=== PATIENT | female | born 1940 | race Caucasian/White ===

== ENCOUNTER 2017-10-02 12:37 | Inpatient (IN) | payer MEDICARE, OTHER ==
[~2017-10-02] VITALS: Ht 160 cm; Wt 105.8 kg
[~2017-10-02 12:37] MED LIST: AMIT10TA6 PO; AMLO-147 PO; ASPI-664 PO; CALC500T12 PO; COLE625T2 PO; DOCU100T PO; FOLI-49 PO; FURO20TA3 PO; GLIP-95 PO; INSU100C5 SQ; KETO5DRO21 BOTH EYES; METO2.5T12 PO; NOV SC; NYST15CR28 TOP; PANT40TA4 PO; RANO500T2 PO; SIMV20TA2 PO; [UNRECOGNIZED DRUG - CODE] PO
[2017-10-02] MEDS ORDERED: morphine 4 MG/ML VIAL IV STA ×2 (12:40→17:38)
[2017-10-02] MEDS ORDERED: ONDANSETRON 4 MG INJ IV STA ×2 (12:40→17:38)
[2017-10-02] MEDS ORDERED: SOD CHLORIDE 0.9% 500 ML IV STA (12:41)
[2017-10-02 13:03] LABS: BASOPHIL # 0.1 10^3/ul (0.0-0.1); BASOPHILS % 0.8 % (0.0-2.0); EOSINOPHILS # 0.2 10^3/ul (0.0-0.5); EOSINOPHILS % 2.2 % (0.0-7.0); HEMATOCRIT 37.9 % (37.0-47.0); HEMOGLOBIN 12.5 g/dl (12.0-16.0); LYMPHOCYTES # 3.8 10^3/ul (0.8-2.9); LYMPHOCYTES % 41.6 % (15.0-51.0); MEAN CORPUSCULAR HEMOGLOBIN 31.2 pg (29.0-33.0); MEAN CORPUSCULAR VOLUME 94.5 fl (82.0-101.0); MEAN PLATELET VOLUME 9.6 fl (7.4-10.4); MONOCYTES % 11.3 % (0.0-11.0); NEUTROPHILS % 43.6 % (39.0-77.0); PLATELET COUNT 238 10^3/UL (140-415); RED BLOOD COUNT 4.01 10^6/ul (4.20-5.40); WHITE BLOOD COUNT 9.1 10^3/ul (4.8-10.8)
[2017-10-02 13:23] LABS: ALANINE AMINOTRANSFERASE 36 IU/L (13-69); ALBUMIN 4.1 g/dl (3.3-4.9); ALKALINE PHOSPHATASE 91 IU/L (42-121); ANION GAP 14 (8-16); ASPARTATE AMINO TRANSFERASE 33 IU/L (15-46); BILIRUBIN,INDIRECT 0.2 mg/dl (0-1.1); BILIRUBIN,TOTAL 0.2 mg/dl (0.2-1.3); BLOOD UREA NITROGEN 19 mg/dl (7-20); CALCIUM 9.8 mg/dl (8.4-10.2); CARBON DIOXIDE 28 mmol/L (21-31); CHLORIDE 106 mmol/L (97-110); CREATININE 1.37 mg/dl (0.44-1.00); GLUCOSE 170 mg/dl (70-220); POTASSIUM 5.1 mmol/L (3.5-5.1); SODIUM 143 mmol/L (135-144); TOTAL PROTEIN 7.8 g/dl (6.1-8.1)
[2017-10-02 13:36] LABS: TROPONIN-I < 0.012 ng/ml (0.00-0.12)
--- NOTE | 2017-10-02 13:50 | ERD ---
ER Documentation Chief Complaint Chief Complaint mechanical fall landed on rt shoulder/ c/o rt shoulder pain no LOC HPI Is a 77-year-old female presents after mechanical fall she got caught in fell and landed on her right shoulder. She has pain in the posterior right shoulder does not want to move the arm. Also has pain in her back if she did land on her backside. She denies any head injury loss of consciousness. Denies any chest pain or lightheadedness prior to the fall. Has felt well all morning until the fall. Is no neurological deficits. ROS All systems reviewed and are negative except as per history of present illness. Medications Home Meds Active Scripts Naproxen* (Naproxen*) 375 Mg Tablet, 375 MG PO BID Y for PAIN, #20 TAB Prov:AFIA PATEL DO 10/02/17 Hydrocodone/Acetaminophen ([place] 7.5-325 Tablet) 1 Each Tablet, 1 EACH PO Q6 for SEVERE PAIN LEVEL 7-10, #20 TAB Prov:AFIA PATEL DO 10/02/17 Reported Medications Calcium Carbonate* ([place]-500*) 1 Tab Tablet, 1 TAB PO BID, TAB 06/21/16 Ketorolac Tromethamine Oph (Ketorolac Tromethamine Oph) 0.5%-5 Ml Opht Drops, 1 DROP BOTH EYES QID, EA 06/21/16 Nystatin* (Nystatin*) 15 Gm Cr, 1 APPLIC TOP BID, #1 TUB 06/21/16 Docusate Sodium* (Dok*) 100 Mg Tablet, 100 MG PO QID, #120 CAP 06/21/16 Glipizide* (Glipizide*) 10 Mg Tablet, 10 MG PO BID, TAB 06/21/16 Furosemide* (Furosemide*) 20 Mg Tablet, 20 MG PO DAILY, #60 TAB 06/21/16 Insulin Aspart* (Novolog Insulin Vial*) 100 U/Ml Vial, 33 UNITS SC TID WITH MEAL , VIAL 06/21/16 Pantoprazole* (Pantoprazole*) 40 Mg Tablet.dr, 40 MG PO DAILY, TAB 06/21/16 Simvastatin (Simvastatin) 20 Mg Tablet, 20 MG PO HS, TAB 01/06/15 Ranolazine* (Ranexa*) 500 Mg Tab.sr.12h, 500 MG PO Q12, TAB 01/06/15 Insulin Glargine,Hum.rec.anlog (Lantus) 100 U/Ml Cartridge, 21 UNITS SQ QHS 05/20/13 Amlodipine Besylate* (Amlodipine Besylate*) 10 Mg Tablet, 10 MG PO DAILY 05/20/13 Metolazone* (Metolazone*) 2.5 Mg Tablet, 2.5 MG PO DAILY 07/17/12 Folic Acid* (Folic Acid*) 1 Mg Tablet, 1 MG PO DAILY 07/17/12 Aspirin* (Aspirin* EC) 81 Mg Tablet.dr, 81 MG PO DAILY 07/17/12 Gabapentin (Gabapentin) 100 Gm Powder, 100 MG PO TID 07/17/12 Amitriptyline Hcl* (Amitriptyline Hcl*) 10 Mg Tablet, 10 MG PO DAILY 07/17/12 Colesevelam Hcl* (Welchol*) 625 Mg Tablet, 625 MG PO TID 07/17/12 Allergies Allergies: Coded Allergies: No Known Drug Allergy (Verified Allergy, Mild, 10/02/17) PMhx/Soc History of Surgery: Yes (2014 TKR, FX RT WRIST 2012) Anesthesia Reaction: No Hx Neurological Disorder: No Hx Respiratory Disorders: No Hx Cardiac Disorders: Yes (HTN, HYPERLIPIDEMIA, CAD) Hx Psychiatric Problems: No Hx Miscellaneous Medical Probl: Yes (DM) Hx Alcohol Use: No Hx Substance Use: No Hx Tobacco Use: No Smoking Status: Never smoker Physical Exam Vitals Physical Exam Const: [] Moderate distress Head: Atraumatic Eyes: Normal Conjunctiva, EOMI, PERRLA ENT: Normal External Ears, Nose and Mouth. Neck: Full range of motion..~ No meningismus. Resp: Clear to auscultation bilaterally Cardio: Regular rate and rhythm, no murmurs Abd: Soft, non tender, non distended. Normal bowel sounds Skin: No petechiae or rashes Back: No midline or flank tenderness Ext: No cyanosis, or edema tenderness to right upper humerus, tenderness along scapula. Has some left lower back tenderness as well. Neur: Awake and alert and oriented 3, no focal deficits Psych: Anxious Result Diagram: 10/08/17 0753 10/08/17 0753 Results 24 hrs Laboratory Tests Test 10/02/17 12:45 White Blood Count 9.110^3/ul Red Blood Count 4.0110^6/ul Hemoglobin 12.5g/dl Hematocrit 37.9% Mean Corpuscular Volume 94.5fl Mean Corpuscular Hemoglobin 31.2pg Mean Corpuscular Hemoglobin Concent 33.0g/dl Red Cell Distribution Width 12.0% Platelet Count 06006^3/UL Mean Platelet Volume 9.6fl Neutrophils % 43.6% Lymphocytes % 41.6% Monocytes % 11.3% Eosinophils % 2.2% Basophils % 0.8% Nucleated Red Blood Cells % 0.0/100WBC Neutrophils # 4.010^3/ul Lymphocytes # 3.810^3/ul Monocytes # 1.010^3/ul Eosinophils # 0.210^3/ul Basophils # 0.110^3/ul Nucleated Red Blood Cells # 0.010^3/ul Sodium Level 143mmol/L Potassium Level 5.1mmol/L Chloride Level 106mmol/L Carbon Dioxide Level 28mmol/L Anion Gap 14 Blood Urea Nitrogen 19mg/dl Creatinine 1.37mg/dl Glucose Level 170mg/dl Calcium Level 9.8mg/dl Total Bilirubin 0.2mg/dl Direct Bilirubin 0.00mg/dl Indirect Bilirubin 0.2mg/dl Aspartate Amino Transf (AST/SGOT) 33IU/L Alanine Aminotransferase (ALT/SGPT) 36IU/L Alkaline Phosphatase 91IU/L Troponin I < 0.012ng/ml Total Protein 7.8g/dl Albumin 4.1g/dl Globulin 3.70g/dl Albumin/Globulin Ratio 1.10 Lipase 76U/L Current Medications Medications (Trade) Dose Ordered Sig/Segun Route PRN Reason Start Time Stop Time Status Last Admin Dose Admin Morphine Sulfate (morphine) 4 mg ONCE STAT IV 10/02/17 12:40 10/02/17 12:41 DC 10/02/17 12:51 Ondansetron HCl 4 mg 4 mg ONCE STAT IV 10/02/17 12:40 10/02/17 12:41 DC 10/02/17 12:51 Sodium Chloride (NS) 500 ml @ 500 mls/hr Q1H STAT IV 10/02/17 12:41 10/02/17 13:40 DC 10/02/17 12:51 Hydromorphone HCl 1 mg 1 mg ONCE STAT IV 10/02/17 14:42 10/02/17 14:43 DC 10/02/17 14:48 Sodium Chloride (NS) 500 ml @ 500 mls/hr Q1H ONCE IV 10/02/17 15:00 10/02/17 15:59 DC 10/02/17 14:48 Morphine Sulfate (morphine) 4 mg ONCE STAT IV 10/02/17 17:38 10/02/17 17:39 DC 10/02/17 17:52 Ondansetron HCl (Zofran Inj) 4 mg ONCE STAT IV 10/02/17 17:38 10/02/17 17:39 DC 10/02/17 17:52 Hydromorphone HCl (Dilaudid) 2 mg ONCE STAT IV 10/02/17 20:41 10/02/17 20:42 DC 10/02/17 20:49 Procedures/MDM Mechanical fall with severe intractible pain from broken ribs. Requiring multiple narcotic IV pain medication doses to control pain. Negative for cardiac ischemia or acute infection. Will need to be admitted for pain control and incentive spirometry. EKG interpretation: Normal sinus rhythm rate of 68, normal axis, incomplete right bundle branch block, no ST or T-wave changes concerning for acute ischemia. CT chest: fractures of ribs 5 through 7, no pulmonary edema, pneumothorax, or infiltrate. CXR: No actue process. No apparent fracture, infiltrate, ptx, or edema. XR shoulder interp: no fracture or dislocation. NAP XR cervical, thoracid and lumbar spine: No fracture, dislocation or subluxation. Departure Diagnosis: Primary Impression: Intractable pain Additional Impressions: Multiple rib fractures Renal insufficiency Condition: Serious AFIA PATEL DO Oct 02, 2017 13:50
[2017-10-02] MEDS ORDERED: HYDROmorphONE 1 MG/ML SYG IV STA (14:42)
--- NOTE | 2017-10-02 14:43 | RADRPT ---
PROCEDURE: XR Cervical Spine. CLINICAL INDICATION: Neck pain. Fall TECHNIQUE: AP, lateral, and open mouth views of the cervical spine were obtained. COMPARISON: None FINDINGS: The C1-C5 vertebral bodies is seen. The cervical lordosis is maintained. The vertebral body heights are normal. Multilevel endplate and uncovertebral osteophytosis is seen. Mild disc height loss at C 4-5 is seen. No acute fracture or subluxation is seen. Degenerative changes of the atlantoaxial padmini nt is seen. No prevertebral soft tissue abnormality is seen. IMPRESSION: 1. No radiographic evidence for an acute fracture or subluxation. If clinical concern for a cervic al spine fracture persist, a CT of the cervical spine is recommended. 2. Degenerative spondylosis of the visualized cervical spine. RPTAT: HPNM Physician Dyan Date Time Electronically viewed and signed by Physician Dyan on 10/02/2017 14:43 /
--- NOTE | 2017-10-02 14:45 | RADRPT ---
PROCEDURE: XR L-Spine. CLINICAL INDICATION: Low back pain. Fall TECHNIQUE: AP, lateral, and cone down views of the lumbar spine were obtained. COMPARISON: None FINDINGS: 5 mm of anterolisthesis at L5-S1 is seen. The remainder of the lumbar lordosis is maintained. Diffus e osteopenia is seen. The vertebral body heights are normal. Multilevel endplate osteophytosis is se en. Moderate disc height loss at L5-S1 is seen. No acute fracture or subluxation is seen. No parave rtebral soft tissue abnormality is seen. Aortic calcifications are seen. IMPRESSION: 1. Degenerative spondylosis of the lumbar spine as noted above. 2. 5 mm of anterolisthesis at L5-S1. RPTAT: HPNM Physician Dyan Date Time Electronically viewed and signed by Physician Dyan on 10/02/2017 14:44 /
--- NOTE | 2017-10-02 14:46 | RADRPT ---
PROCEDURE: XR Shoulder. CLINICAL INDICATION: Right shoulder pain. Fall TECHNIQUE: Internal and external rotation views of the right shoulder were obtained. COMPARISON: None FINDINGS: No acute fracture or dislocation is seen. A healed fracture of the mid clavicle is seen. The glenohu meral and acromioclavicular joints arewithin normal limits. Diffuse osteopenia is seen. The soft t issue structures are intact. The visualized portions of the right clavicle and chest otherwise appe ar unremarkable. IMPRESSION: No evidence of an acute abnormality. RPTAT: HPNM Physician Dyan Date Time Electronically viewed and signed by Physician Dyan on 10/02/2017 14:46 /
--- NOTE | 2017-10-02 14:48 | RADRPT ---
PROCEDURE: XR Chest. CLINICAL INDICATION: Shortness of breath. Fall TECHNIQUE: A single portable view of the chest was obtained. COMPARISON: 01/09/2015 FINDINGS: The aorta is tortuous and atherosclerotic. The cardiomediastinal silhouette is otherwise enlarged. The lung volumes are low with bibasilar compressive atelectasis. The remaining lungs and pleural spa darlyn are clear. The soft tissues and osseous structures demonstrate benign age related senescent antionette nges. A healed right mid clavicle fractures again seen. IMPRESSION: No acute cardiopulmonary disease. Cardiomegaly. Low lung volumes with bibasilar compressive atelectasis. RPTAT: HPNM Physician Dyan Date Time Electronically viewed and signed by Physician Dyan on 10/02/2017 14:48 /
--- NOTE | 2017-10-02 14:49 | RADRPT ---
PROCEDURE: XR thoracic Spine. CLINICAL INDICATION: Back pain. Fall TECHNIQUE: AP and lateral views of the thoracic spine were obtained. COMPARISON: No prior studies are available for comparison. FINDINGS: The thoracic kyphosis is maintained. No fracture or subluxation is seen. Diffuse osteopenia is seen. The vertebral body are normal in appearance. Multilevel endplate osteophytosis is seen with disc h eight loss. The posterior elements are unremarkable. The soft tissues appear normal. IMPRESSION: Multilevel degenerative spondylosis of the thoracic spine. RPTAT: HPNM Physician Dyan Date Time Electronically viewed and signed by Physician Dyan on 10/02/2017 14:49 /
[2017-10-02] MEDS ORDERED: SOD CHLORIDE 0.9% 500 ML IV ONE (15:00)
[2017-10-02] MEDS ORDERED: HYDROmorphONE 2 MG/ML SYG IV STA (20:41)
[2017-10-02] MEDS ORDERED: NAPR-685 PO (20:45)
[2017-10-02] MEDS ORDERED: HYDR-905 PO (20:45)
--- NOTE | 2017-10-02 22:01 | RADRPT ---
PROCEDURE: CT of the upper extremity without intravenous contrast. CLINICAL INDICATION: Trauma TECHNIQUE: CT of the right shoulder upper extremity was performed without contrast utilizing axial images with reconstructions in sagittal and coronal planes. The administered radiation dose is CTDI 59 mGy, DLP 125 mGy-cm. One or more of the following dose reduction techniques were used: automated exposure control, adjustment of the mA and/or kV according to patient size and/or use of iterative reconstruction technique. COMPARISON: There are no similar studies submitted for comparison. FINDINGS: There is no acute fracture of the shoulder or scapula. A chronic, healed fracture of the right poste rolateral 3rd rib and right clavicle are noted. There are acute, nondisplaced fractures of the right posterolateral 5th through 7th ribs. No destructive osseous lesion is identified. The muscles are normal in size. There is no joint effusion. The subcutaneous soft tissues are within normal limit s. IMPRESSION: No evidence of shoulder fracture or dislocation. Acute fractures of the right fifth through seventh ribs. RPTAT: HIKT .Aj Turcios MD, Date Time Electronically viewed and signed by .Aj Turcios MD, on 10/02/2017 22:01 .T/
--- NOTE | 2017-10-02 22:37 | QN ---
Documentation Comment 77-year-old woman signed out to me pending CT scan of the upper extremity status post mechanical fall. While in the ED she had severe pain and required multiple doses of intravenous opioid analgesics. X-rays were unremarkable but for continued pain Dr. Fraire ordered a CT scan and signed out to me for disposition pending results. GENERAL: Well-developed, well-nourished, well-hydrated, moderate discomfort HEENT: Moist mucous membranes, pink conjunctiva, no cervical spine tenderness or step-off deformities, no goiter, no jaundice or icterus, extraocular movements intact without pain. No submandibular induration, and no pharyngeal erythema NEURO: Alert and oriented 3, cranial nerves II through XII intact bilaterally, pupils equal round reactive to light, no focal deficits or facial asymmetry, sensation intact distally Strength 5/5 in upper and lower extremities bilaterally CARDIAC: Regular rate and rhythm, no murmurs rubs or gallops LUNGS: Clear bilaterally no wheezing crackles or stridor ABDOMEN: Soft nontender, no guarding, no rigidity, no rebound, no psoas sign no obturator sign. Normoactive bowel sounds SKIN: Warm and dry to touch, no abrasions, contusions, or hematomas, no lacerations, no ecchymosis, no target lesions, and without ulcers EXTREMITIES: No clubbing cyanosis or edema, calves are bilaterally symmetrical, no Homans sign, no popliteal cord sign. Distal pulses equal and bilateral PSYCH: Normal affect without agitation or irritability Medical decision making/ED course: CT scan of the upper extremity revealed unilateral rib fractures on the right beginning fifth rib through the seventh. Please refer to radiologist dictation for full report. I spoke to her PMD Dr. Serrano regarding the patient's presentation, symptomatology, ED workup and ED imaging. Given her rib fractures and intractable pain we agreed to admit the patient to telemetry setting for continued medical management and possible pulmonology consultation if indicated. Patient is without complaints of pain at this time although did require high doses of opioid analgesics and it would be safer to admit her to telemetry for continued pain control. Diagnostic impression: 1) Acute right rib fractures of 5, 6, 7 2) acute intractable pain FRANCISCO BRAND MD Oct 02, 2017 22:37
[2017-10-02 22:58] VITALS: TEMP 98.3
[2017-10-02 23:30] VITALS: BP 136/63; PULSE 78; RESP 20; Ht 160 cm; Wt 105.8 kg
[2017-10-03] VITALS (13 sets, daily range): BP systolic 111–155; BP diastolic 54–93; PULSE 57–77; RESP 17–21
[2017-10-03] MEDS ORDERED: ACETAMINOPHEN 325 MG TAB PO PRN (01:30)
[2017-10-03] MEDS ORDERED: NAPROXEN 250 MG TAB PO PRN (01:30)
[2017-10-03] MEDS: ACCU-CHEK XX SCH (02:00)
[2017-10-03] MEDS ORDERED: ACCU-CHEK XX SCH (02:00)
[2017-10-03] MEDS: ONDANSETRON 4 MG INJ IV PRN (02:32)
[2017-10-03] MEDS: morphine 2 MG INJ IV PRN ×3 (02:32→22:18)
[2017-10-03] MEDS: PANTOPRAZOLE (EC) 40 MG TAB PO SCH (05:46)
[2017-10-03] MEDS ORDERED: HYDROCODONE/APAP (7.5/325) TAB PO SCH (06:00)
[2017-10-03] MEDS ORDERED: glipiZIDE 10 MG TAB PO SCH (07:30)
[2017-10-03] MEDS: NYSTATIN 15 GM CR TOP SCH ×2 (08:32→21:00)
[2017-10-03] MEDS: ASPIRIN (EC) 81 MG TAB PO SCH (08:33)
[2017-10-03] MEDS: AMLODIPINE 10 MG TAB PO SCH (08:33)
[2017-10-03] MEDS: FUROSEMIDE 20 MG TAB PO SCH (08:33)
[2017-10-03] MEDS: AMITRIPTYLINE 10 MG TAB PO SCH (08:33)
[2017-10-03] MEDS: COLESEVELAM 625 MG TAB PO SCH ×3 (08:33→21:31)
[2017-10-03] MEDS: GABAPENTIN 100 MG CAP PO SCH ×3 (08:33→21:32)
[2017-10-03] MEDS: CALCIUM CARBONATE 1.25 GM TAB PO SCH ×2 (08:33→21:32)
[2017-10-03] MEDS: RANOLAZINE (SR) 500 MG TAB PO SCH ×2 (08:34→21:31)
[2017-10-03] MEDS: INSULIN ASPART [NOVOLOG] 3 ML PEN SC SCH ×4 (08:39→21:00)
[2017-10-03] MEDS: FOLIC ACID 1 MG TAB PO SCH (08:41)
[2017-10-03 08:45] LABS: BASOPHIL # 0.1 10^3/ul (0.0-0.1); BASOPHILS % 0.6 % (0.0-2.0); EOSINOPHILS # 0.1 10^3/ul (0.0-0.5); EOSINOPHILS % 1.2 % (0.0-7.0); HEMATOCRIT 35.6 % (37.0-47.0); HEMOGLOBIN 11.5 g/dl (12.0-16.0); LYMPHOCYTES # 2.8 10^3/ul (0.8-2.9); LYMPHOCYTES % 31.4 % (15.0-51.0); MEAN CORPUSCULAR HGB CONC 32.3 g/dl (32.0-37.0); MEAN PLATELET VOLUME 9.9 fl (7.4-10.4); MONOCYTE # 1.3 10^3/ul (0.3-0.9); MONOCYTES % 14.9 % (0.0-11.0); NEUTROPHIL # 4.6 10^3/ul (1.6-7.5); NEUTROPHILS % 51.6 % (39.0-77.0); PLATELET COUNT 218 10^3/UL (140-415); RED BLOOD COUNT 3.71 10^6/ul (4.20-5.40); RED CELL DISTRIBUTION WIDTH 12.1 % (11.5-14.5)
[2017-10-03] MEDS: DOCUSATE SODIUM 100 MG CAP PO SCH ×4 (08:47→21:31)
[2017-10-03] MEDS ORDERED: KETOROLAC TROMETHAMINE OPH XX SCH (09:00)
[2017-10-03 09:09] LABS: ALBUMIN 3.7 g/dl (3.3-4.9); ALBUMIN/GLOBULIN RATIO 1.02; BILIRUBIN,INDIRECT 0.3 mg/dl (0-1.1); BILIRUBIN,TOTAL 0.3 mg/dl (0.2-1.3); CALCIUM 9.5 mg/dl (8.4-10.2); CREATININE 1.4 mg/dl (0.44-1.00); POTASSIUM 5.2 mmol/L (3.5-5.1); TOTAL PROTEIN 7.3 g/dl (6.1-8.1)
[2017-10-03] MEDS: METOLAZONE 2.5 MG TAB PO SCH (12:23)
--- NOTE | 2017-10-03 13:47 | HP ---
Date/Time of Note Date/Time of Note DATE: 10/03/17 TIME: 13:35 Assessment/Plan VTE Prophylaxis VTE Prophylaxis Intervention: SCD's Lines/Catheters IV Catheter Type (from Nrs): Saline Lock Urinary Cath still in place: No Assessment/Plan Chief Complaint/Hosp Course 1. S/p fall with acute right rib fractures of 5, 6, 7 2. Hypertension controlled 3. Morbid obesity 4. Multilevel degenerative spondylosis of the thoracic spine. 5. Dm type II , controlled 6. Anemia Problems: Assessment/Plan 1. fall precautions 2. Pain control HPI/ROS Admit Date/Time Admit Date/Time Oct 02, 2017 at 22:30 Hx of Present Illness This a 77-year-old female presents after mechanical fall she got caught in fell and landed on her right side, hit her right shoulder. She has pain in the posterior right shoulder does not want to move the arm. Also has pain in her back if she did land on her backside. She denies any head injury loss of consciousness. Denies any chest pain or lightheadedness prior to the fall. Per ER record she felt well all morning until the fall. There is no neurological deficits. ROS Musculoskeletal: restricted range of motion (right chest) Skin: bruising (right side) PMH/Family/Social Past Medical History Medical History: diabetes, hypertension Past Surgical History Past Surgical Hx: no surgical history Social History Alcohol Use: none Smoking Status: Never smoker Drug Use: none Exam/Review of Systems Vital Signs Vitals Vital Signs Date Time Temp Pulse Resp B/P Pulse Ox O2 Delivery O2 Flow Rate FiO2 10/03/17 13:12 57 10/03/17 11:55 98.4 20 118/56 96 10/02/17 23:30 Nasal Cannula 2.0 Intake and Output 10/02/17 10/02/17 10/03/17 15:00 23:00 07:00 Intake Total 400 ml Balance 400 ml Exam Constitutional: alert, oriented Eyes: nl conjunctiva ENMT: nl external ears & nose Neck: supple Respiratory: clear to auscultation Cardiovascular: regular rate and rhythm Gastrointestinal: soft Musculoskeletal: range of motion (decreased right shoulder) Labs Result Diagram: 10/03/1782510/03/17825 Medications Medications Current Medications Acetaminophen (Tylenol Tab) 650 mg Q6H PRN PO PAIN AND OR ELEVATED TEMP; Start 10/03/17 at 01:30 Morphine Sulfate (morphine) 2 mg Q4H PRN IV PAIN Last administered on 02:32; Admin Dose 2 MG; Start 10/03/17 at 01:30 Ondansetron HCl (Zofran Inj) 4 mg Q6H PRN IV NAUSEA AND/OR VOMITING Last administered on 10/03/17 02:32; Admin Dose 4 MG; Start 10/03/17 at 01:30 Amitriptyline HCl (Elavil) 10 mg DAILY PO Last administered on 10/03/17 08:33 ; Admin Dose 10 MG; Start 10/03/17 at 09:00 Amlodipine Besylate (Norvasc) 10 mg DAILY PO Last administered on 10/03/17 08: 33; Admin Dose 10 MG; Start 10/03/17 at 09:00 Aspirin (Halfprin) 81 mg DAILY PO Last administered on 10/03/17 08:33; Admin Dose 81 MG; Start 10/03/17 at 09:00 Calcium Carbonate ([place] Calcium) 1.25 gm BID PO Last administered on 08:33; Admin Dose 1.25 GM; Start 10/03/17 at 09:00 Colesevelam HCl (Welchol) 625 mg TID PO Last administered on 10/03/17 12:25; Admin Dose 625 MG; Start 10/03/17 at 09:00 Docusate Sodium (Colace) 100 mg QID PO Last administered on 10/03/17 12:24; Admin Dose 100 MG; Start 10/03/17 at 09:00 Folic Acid (Folic Acid) 1 mg DAILY PO Last administered on 10/03/17 08:41; Admin Dose 1 MG; Start 10/03/17 at 09:00 Furosemide (Lasix) 20 mg DAILY PO Last administered on 10/03/17 08:33; Admin Dose 20 MG; Start 10/03/17 at 09:00 Metolazone (Zaroxolyn) 2.5 mg DAILY PO Last administered on 10/03/17 12:23; Admin Dose 2.5 MG; Start 10/03/17 at 09:00 Nystatin (Nystatin Cr) 1 applic BID TOP Last administered on 10/03/17 08:32; Admin Dose 1 APPLIC; Start 10/03/17 at 09:00 Pantoprazole (Protonix Tab) 40 mg DAILY@06 PO Last administered on 10/03/17 05 :46; Admin Dose 40 MG; Start 10/03/17 at 06:00 Ranolazine (Ranexa) 500 mg Q12 PO Last administered on 10/03/17 08:34; Admin Dose 500 MG; Start 10/03/17 at 09:00 Gabapentin (Neurontin) 100 mg TID PO Last administered on 10/03/17 12:24; Admin Dose 100 MG; Start 10/03/17 at 09:00 Miscellaneous Information 1 drop QID BOTH EYES ; Start 10/03/17 at 09:00; Status UNV Naproxen (Naprosyn) 375 mg BID PRN PO PAIN; Start 10/03/17 at 01:30 Atorvastatin Calcium (Lipitor) 10 mg DAILY@21 PO ; Start 10/03/17 at 21:00 Diagnostic Test (Pha) (Accu-Chek) 1 ea 02 XX ; Start 10/03/17 at 02:00 Acetaminophen/ Hydrocodone Bitart ([place] (7.5-325)) 1 tab Q6H PRN PO PAIN; Start 10/03/17 at 03:00 PATRICIA CALVERT Oct 03, 2017 13:45
--- NOTE | 2017-10-03 15:59 | CONS ---
DATE OF ADMISSION: 10/02/2017 DATE OF CONSULTATION: 10/03/2017 REASON FOR CONSULTATION: Chest pain, shortness of breath. REQUESTING PHYSICIAN: Raghav Salazar. HISTORY OF PRESENT ILLNESS: Ms. Jacobo is a 77-year-old female with history of hypertension, dysli pidemia, prior [place], neuropathy, diabetes mellitus who initially presented with complaints of a mechan ical fall with pain in her shoulder. At that time, patient denies chest pain. Initially upon arriv al, temperature 98.3, blood pressure 184/74, pulse 69, respiratory rate 22, saturating 99%. LABORATORY DATA: Revealed white count 11.1, hemoglobin 12.5, platelet count 238. Sodium 143, potas sium 5.1, creatinine 1.37, BUN 19, AST 33, ALT 36. The patient underwent upper extremity CT reveali ng no evidence of shoulder fracture, dislocation, acute fractures of the right 5th through 7th ribs. Thoracic spine x-ray revealing multilevel degenerative spondylosis of the thoracic spine, a should er x-ray that revealed no evidence of acute abnormality. A lumbar spine x-ray revealing degenerativ e spondylosis of the lumbar spine. And a chest x-ray that revealed no acute cardiopulmonary disease , cardiomegaly. The patient's electrocardiogram revealed normal sinus rhythm, rate of 68, normal ax is, block secondary repolarization abnormalities. The patient was subsequently admitted to the floor and since admit to the floor continues to have mi ld shortness of breath and chest pain, which pain on palpitation of her chest likely consistent with a rib fracture pain. PAST MEDICAL HISTORY: As above in HPI. MEDICATIONS CURRENTLY IN HOSPITAL: 1. Lipitor 2. Norvasc 10 mg daily. 3. Aspirin 81 mg daily. 4. Lasix 20 mg daily. 5. Zaroxolyn 2.5 mg. 6. Ranexa 5 mg q.12h. 7. Neurontin 100 mg t.i.d. ALLERGIES: NO KNOWN DRUG ALLERGIES. SOCIAL HISTORY: No tobacco, ETOH or illicit drug use. FAMILY HISTORY: No history of sudden cardiac or early CAD. REVIEW OF SYSTEMS: As above in HPI. CONSTITUTIONAL: No fevers, chills. PULMONARY: Shortness of breath. CARDIOVASCULAR: Chest pain. GI: No vomiting. : No hematuria. MUSCULOSKELETAL: Degenerative joint disease. PSYCHIATRIC: No documented psych history. NEUROLOGIC: No documented CVA. ENDOCRINE: Diabetes mellitus. PHYSICAL EXAMINATION: VITAL SIGNS: Temperature 98.3, blood pressure 118/56, pulse 66, respiratory rate 20, saturating 96% . GENERAL: The patient is alert, awake, complaining of chest pain and rib pain. NECK: JVP approximately 9 cm water. CHEST: Fair air movement throughout. HEART: Regular rate and rhythm. Normal S1, S2, I/ systolic murmur, nondisplaced PMI. ABDOMEN: Positive bowel sounds, soft. EXTREMITIES: No pitting edema, 1+ pulses bilaterally, posterior tibial. LABORATORIES: As above in HPI, with most recent from today, sodium 140, potassium 5.2, creatinine 1 .4, BUN 22. White blood cell count 9, hemoglobin 11.5, platelet count 218. IMAGING STUDIES: As above in HPI. No further imaging studies for my review at this time. ECG: As above in HPI. No further electrocardiograms for my review at this time. IMPRESSION: 1. Chest pain, likely secondary to rib fracture, rule out acute coronary syndrome. 2. Abnormal electrocardiogram with nonspecific ST-T abnormalities, assess for acute coronary syndro me. 3. Shortness of breath, assess for congestive heart failure. 4. Hypertension, under reasonable control. 5. Bradycardia, mild with stable blood pressure. 6. Diabetes mellitus. 7. Status post fall, rule out cardiac etiology. Rule out cardiac arrhythmia. RECOMMENDATIONS: 1. At this time, would maintain the patient on telemetry monitoring to follow rhythm and rate contr ol closely. 2. Check serial EKGs to assess for any significant ongoing changes, an EKG in the morning, EKG for complaints of chest pain or change in rhythm. 3. Continue the patient's current aspirin for prophylaxis against cardiovascular events. 4. Continue the patient's Lasix diuresis, with possible need to increase diuresis, following creati nine closely. 5. Continue the patient's antianginal medication, Ranexa and Norvasc and additionally continue the patient's Norvasc for blood pressure control, following closely. 6. Check a TSH to assess the patient's current thyroid state and its possible contribution to borde rline bradycardia. Would hold on any anoop agents. Continue the patient's statin and adjust it acc ording to a fasting lipid panel as checked. 7. Pain control. 8. Check a 2D echocardiogram to further assess patient's ejection fraction, wall motion or . Thank you for allowing me to take part in the care of this patient. I will continue to follow very closely with you with further recommendations to be made as patient progresses through the inpatient hospital clinical course. Dictated By: ALMAZ BLOUNT/YUNIEL Conf#: [id number] DID#: [id number] CC: RAGHAV SALAZAR MD;*EndCC*
--- NOTE | 2017-10-03 18:25 | RADRPT ---
Echocardiogram Report Patient Name: XAVIER DIAZ Gender: Female Date: 1940 Study Date: 03-Oct-2017 Bag Checker: Margareth Gale [facility] Location: [id number] Ref. Physician: ALMAZ ANTONIO Quality: Technically Difficult Study Procedures: Transthoracic echocardiogram with complete 2D, M-Mode, and doppler examination. Indications: Chest Pain. 2D/M Mode Doppler Measurement Value Normal Ranges Measurement Value Normal Ranges LVIDd 2D 4.4 3.5 - 5.6 cm SHAZIA Vmax 1.0 cm2 LVIDs 2D 2.4 2.1 - 4.1 cm SHAZIA VTI 1.0 cm2 LVPWd 2D 1.3 0.6 - 1.1 cm AV Mean Ric 3.0 m/sec IVSd 2D 1.2 0.6 - 1.1 cm AV Mean PG 41.8 mmHg AoR Diam 2D 2.4 2.0 - 3.7 cm AV Peak Ric 4.3 m/sec EDV 2D 86.5 cm3 AV Peak PG 75.3 mmHg ESV 2D 13.8 cm3 AV VTI 105.4 cm LA Dimen 2D 4.0 2.3 - 4.0 cm LVOT Mean Ric 1.2 m/sec LVOT Diam 1.9 cm LVOT Mean PG 6.1 mmHg LVOT Peak Ric 1.5 m/sec LVOT Peak PG 9.4 mmHg LVOT VTI 39.8 cm MV E Peak Ric 1.2 m/sec MV A Peak Ric 1.4 m/sec MV E/A 0.9 MV Decel Time 379 msec MV Decel [place] 3 MV E/A 0.9 TR Peak Ric 3.0 m/sec TR Peak PG 35.7 mmHg RVSP 39.0 mmHg Findings Left Ventricle: Normal left ventricular systolic function. Normal left ventricular cavity size. Mild concentric left ventricular hypertrophy. Ejection fraction is visually estimated at 60 %. Tissue Doppler/Mitral Doppler indices are consistent with impaired relaxation (Stage I diastolic dysfunction). Right Ventricle: Normal right ventricular size. Normal right ventricular systolic function. Left Atrium: There is mild enlargement of left atrium. Right Atrium: The right atrium is normal in size. Mitral Valve: Mild mitral leaflet calcification. Moderate mitral annular calcification. Trace mitral regurgitation. Aortic Valve: Severe aortic stenosis. Aortic valve Max velocity 4.34 m/sec. Max PG 75.30 mmHg. Mean PG 41.80 mmHg. Aortic valve area 1.00 cm2. Aortic cusps appear severely calcified. Trace aortic valve regurgitation. Tricuspid Valve: Normal appearance of the tricuspid valve. Estimated peak PA systolic pressure 39 mmHg. There is trace tricuspid regurgitation. Pulmonic Valve: Normal pulmonic valve appearance. Pericardium: Normal pericardium with no significant pericardial effusion. Aorta: Normal aortic root. IVC: Normal size and normal respiratory collapse consistent with normal right atrial pressure. Conclusions 1.Normal left ventricular systolic function. Normal left ventricular cavity size. Mild concentric left ventricular hypertrophy. Ejection fraction is visually estimated at 60 %. Tissue Doppler/Mitral Doppler indices are consistent with impaired relaxation (Stage I diastolic dysfunction). 2.There is mild enlargement of left atrium. 3.Mild mitral leaflet calcification. Moderate mitral annular calcification. Trace mitral regurgitation. 4.Severe aortic stenosis. Mean PG 41.80 mmHg. Aortic valve area 1.00 cm2. Trace aortic valve regurgitation. 5.Normal appearance of the tricuspid valve. Estimated peak PA systolic pressure 39 mmHg. There is trace tricuspid regurgitation. Electronically Signed By: Almaz Antonio 03-Oct-2017 18:24:49 -0700 Patient Name: XAVIER DIAZ Study Date: 03-Oct-2017 [id number]
[2017-10-03 19:44] LABS: TROPONIN-I 0.065 ng/ml (0.00-0.12)
[2017-10-03 19:51] LABS: CK-MB 1.76 ng/ml (0.0-2.4)
[2017-10-03] MEDS: HYDROCODONE/APAP (7.5/325) TAB PO PRN (20:33)
[2017-10-03] MEDS ORDERED: ATORVASTATIN 10 MG TAB PO SCH (21:00)
[2017-10-04] VITALS (12 sets, daily range): BP systolic 130–173; BP diastolic 60–73; PULSE 61–74; RESP 18
[2017-10-04 01:50] LABS: CK-MB 1.37 ng/ml (0.0-2.4); TROPONIN-I 0.048 ng/ml (0.00-0.12)
[2017-10-04] MEDS: ACCU-CHEK XX SCH (02:00)
[2017-10-04] MEDS: morphine 2 MG INJ IV PRN ×5 (02:56→23:36)
[2017-10-04] MEDS: PANTOPRAZOLE (EC) 40 MG TAB PO SCH (06:13)
[2017-10-04 08:30] LABS: BASOPHILS % 0.5 % (0.0-2.0); EOSINOPHILS # 0.2 10^3/ul (0.0-0.5); EOSINOPHILS % 2.4 % (0.0-7.0); HEMATOCRIT 34.9 % (37.0-47.0); HEMOGLOBIN 11.4 g/dl (12.0-16.0); LYMPHOCYTES # 1.9 10^3/ul (0.8-2.9); LYMPHOCYTES % 22.8 % (15.0-51.0); MEAN CORPUSCULAR HEMOGLOBIN 31.1 pg (29.0-33.0); MEAN CORPUSCULAR HGB CONC 32.7 g/dl (32.0-37.0); MEAN CORPUSCULAR VOLUME 95.4 fl (82.0-101.0); MEAN PLATELET VOLUME 10.2 fl (7.4-10.4); MONOCYTE # 1.2 10^3/ul (0.3-0.9); MONOCYTES % 14.3 % (0.0-11.0); NEUTROPHILS % 59.6 % (39.0-77.0); PLATELET COUNT 219 10^3/UL (140-415); RED BLOOD COUNT 3.66 10^6/ul (4.20-5.40); RED CELL DISTRIBUTION WIDTH 11.9 % (11.5-14.5); WHITE BLOOD COUNT 8.3 10^3/ul (4.8-10.8)
[2017-10-04 08:37] LABS: CALCIUM 9.8 mg/dl (8.4-10.2); CREATININE 1.42 mg/dl (0.44-1.00); POTASSIUM 4.7 mmol/L (3.5-5.1)
[2017-10-04 08:39] LABS: CHOL/HDL RATIO 4.1 RATIO
[2017-10-04] MEDS: FOLIC ACID 1 MG TAB PO SCH (08:39)
[2017-10-04] MEDS: CALCIUM CARBONATE 1.25 GM TAB PO SCH ×2 (08:39→21:47)
[2017-10-04] MEDS: RANOLAZINE (SR) 500 MG TAB PO SCH ×2 (08:39→21:47)
[2017-10-04] MEDS: GABAPENTIN 100 MG CAP PO SCH ×3 (08:39→21:47)
[2017-10-04] MEDS: ASPIRIN (EC) 81 MG TAB PO SCH (08:39)
[2017-10-04] MEDS: DOCUSATE SODIUM 100 MG CAP PO SCH ×4 (08:39→21:47)
[2017-10-04] MEDS: INSULIN ASPART [NOVOLOG] 3 ML PEN SC SCH ×4 (08:40→21:55)
[2017-10-04] MEDS: FUROSEMIDE 20 MG TAB PO SCH (08:40)
[2017-10-04] MEDS: AMITRIPTYLINE 10 MG TAB PO SCH (08:41)
[2017-10-04] MEDS: METOLAZONE 2.5 MG TAB PO SCH (08:41)
[2017-10-04] MEDS: NYSTATIN 15 GM CR TOP SCH ×2 (08:41→21:47)
[2017-10-04] MEDS: COLESEVELAM 625 MG TAB PO SCH ×3 (08:41→21:47)
[2017-10-04] MEDS: AMLODIPINE 10 MG TAB PO SCH (08:41)
[2017-10-04 08:46] LABS: CK-MB 1.29 ng/ml (0.0-2.4); TROPONIN-I 0.038 ng/ml (0.00-0.12)
--- NOTE | 2017-10-04 13:32 | PN ---
Date/Time of Note Date/Time of Note DATE: 10/04/17 TIME: 13:30 Assessment/Plan VTE Prophylaxis VTE Prophylaxis Intervention: LMWH Lines/Catheters IV [facility] ([facility] Urinary Cath still in place: No Assessment/Plan Chief Complaint/Hosp Course 1. S/p fall with acute right rib fractures of 5, 6, 7 2. Hypertension controlled 3. Morbid obesity 4. Multilevel degenerative spondylosis of the thoracic spine. 5. Dm type II, controlled 6. Anemia 7. dyslipidemia Problems: Assessment/Plan 1. continue pain control 2. Start PT when possible 3. Start statin Subjective 24 Hr Interval Summary Constitutional: poor po Musculoskeletal: back pain, restricted range of motion Exam/Review of Systems Vital Signs Vitals Vital Signs Date Time Temp Pulse Resp B/P Pulse Ox O2 Delivery O2 Flow Rate FiO2 10/04/17 12:10 61 10/04/17 11:54 98.9 18 135/70 98 10/02/17 23:30 Nasal Cannula 2.0 Intake and Output 10/03/17 10/03/17 10/04/17 15:00 23:00 07:00 Intake Total 720 ml 500 ml Balance 720 ml 500 ml Exam Constitutional: alert, oriented Neck: supple Respiratory: diminished breath sounds Cardiovascular: regular rate and rhythm Musculoskeletal: muscle weakness, other (pain in right side of the chest) Results Result Diagram: 10/04/17 0743 10/04/17 0743 Results 24 hrs Laboratory Tests Test 10/03/17 17:01 10/03/17 18:08 10/03/17 21:27 10/04/17 00:48 Bedside Glucose 130 165 Creatine Kinase 138 137 Creatine Kinase Index 1.3 1.0 Creatinine Kinase MB (Mass) 1.76 1.37 Troponin I 0.065 0.048 Test 10/04/17 07:43 10/04/17 08:39 10/04/17 12:58 White Blood Count 8.3 Red Blood Count 3.66 L Hemoglobin 11.4 L Hematocrit 34.9 L Mean Corpuscular Volume 95.4 Mean Corpuscular Hemoglobin 31.1 Mean Corpuscular Hemoglobin Concent 32.7 Red Cell Distribution Width 11.9 Platelet Count 219 Mean Platelet Volume 10.2 Neutrophils % 59.6 Lymphocytes % 22.8 Monocytes % 14.3 H Eosinophils % 2.4 Basophils % 0.5 Nucleated Red Blood Cells % 0.0 Neutrophils # 5.0 Lymphocytes # 1.9 Monocytes # 1.2 H Eosinophils # 0.2 Basophils # 0.0 Nucleated Red Blood Cells # 0.0 Sodium Level 138 Potassium Level 4.7 Chloride Level 105 Carbon Dioxide Level 28 Anion Gap 10 Blood Urea Nitrogen 23 H Creatinine 1.42 H Glucose Level 149 Calcium Level 9.8 Creatine Kinase 126 Creatine Kinase Index 1.0 Creatinine Kinase MB (Mass) 1.29 Troponin I 0.038 B-Type Natriuretic Peptide 509 H Triglycerides Level 166 H Cholesterol Level 174 LDL Cholesterol, Calculated 99 HDL Cholesterol 42 Cholesterol/HDL Ratio 4.1 Bedside Glucose 152 171 Medications Medications Current Medications Acetaminophen (Tylenol Tab) 650 mg Q6H PRN PO PAIN AND OR ELEVATED TEMP; Start 10/03/17 at 01:30 Morphine Sulfate (morphine) 2 mg Q4H PRN IV PAIN Last administered on 13:04; Admin Dose 2 MG; Start 10/03/17 at 01:30 Ondansetron HCl (Zofran Inj) 4 mg Q6H PRN IV NAUSEA AND/OR VOMITING Last administered on 10/03/17 02:32; Admin Dose 4 MG; Start 10/03/17 at 01:30 Amitriptyline HCl (Elavil) 10 mg DAILY PO Last administered on 10/04/17 08:41 ; Admin Dose 10 MG; Start 10/03/17 at 09:00 Amlodipine Besylate (Norvasc) 10 mg DAILY PO Last administered on 10/04/17 08: 41; Admin Dose 10 MG; Start 10/03/17 at 09:00 Aspirin (Halfprin) 81 mg DAILY PO Last administered on 10/04/17 08:39; Admin Dose 81 MG; Start 10/03/17 at 09:00 Calcium Carbonate (Oyster Shell Calcium) 1.25 gm BID PO Last administered on 08:39; Admin Dose 1.25 GM; Start 10/03/17 at 09:00 Colesevelam HCl (Welchol) 625 mg TID PO Last administered on 10/04/17 12:59; Admin Dose 625 MG; Start 10/03/17 at 09:00 Docusate Sodium (Colace) 100 mg QID PO Last administered on 10/04/17 12:59; Admin Dose 100 MG; Start 10/03/17 at 09:00 Folic Acid (Folic Acid) 1 mg DAILY PO Last administered on 10/04/17 08:39; Admin Dose 1 MG; Start 10/03/17 at 09:00 Furosemide (Lasix) 20 mg DAILY PO Last administered on 10/04/17 08:40; Admin Dose 20 MG; Start 10/03/17 at 09:00 Metolazone (Zaroxolyn) 2.5 mg DAILY PO Last administered on 10/04/17 08:41; Admin Dose 2.5 MG; Start 10/03/17 at 09:00 Nystatin (Nystatin Cr) 1 applic BID TOP Last administered on 10/04/17 08:41; Admin Dose 1 APPLIC; Start 10/03/17 at 09:00 Pantoprazole (Protonix Tab) 40 mg DAILY@06 PO Last administered on 10/04/17 06 :13; Admin Dose 40 MG; Start 10/03/17 at 06:00 Ranolazine (Ranexa) 500 mg Q12 PO Last administered on 10/04/17 08:39; Admin Dose 500 MG; Start 10/03/17 at 09:00 Gabapentin (Neurontin) 100 mg TID PO Last administered on 10/04/17 13:00; Admin Dose 100 MG; Start 10/03/17 at 09:00 Miscellaneous Information 1 drop QID BOTH EYES ; Start 10/03/17 at 09:00; Status UNV Naproxen (Naprosyn) 375 mg BID PRN PO PAIN; Start 10/03/17 at 01:30 Atorvastatin Calcium (Lipitor) 10 mg DAILY@21 PO Last administered on 21:31; Admin Dose 10 MG; Start 10/03/17 at 21:00 Diagnostic Test (Pha) (Accu-Chek) 1 ea 02 XX ; Start 10/03/17 at 02:00 Acetaminophen/ Hydrocodone Bitart ([place] (7.5-325)) 1 tab Q6H PRN PO PAIN Last administered on 10/03/17 20:33; Admin Dose 1 TAB; Start 10/03/17 at 03:00 PATRICIA CALVERT Oct 04, 2017 13:32
--- NOTE | 2017-10-04 14:14 | CONS ---
Date/Time of Note Date/Time of Note DATE: 10/04/17 TIME: 14:09 Assessment/Plan Assessment/Plan Additional Assessment/Plan Chest pain, likely secondary to rib fracture Abnormal electrocardiogram with nonspecific ST-T abnormalities Hypertension Sinus Bradycardia resolved Diabetes mellitus. Status post fall Hemodynamically stable Continue Lasix and Zaroxolyn Continue Norvasc Continue Insulin Continue Lipitor Avoid AV Dharmesh medications stopped welchol Consultation Date/Type/Reason Admit Date/Time Oct 02, 2017 at 22:30 Constitutional: no complaints, poor po Musculoskeletal: back pain, restricted range of motion Skin: bruising (right side) Past Medical History Medical History: diabetes, hypertension Past Surgical History Past Surgical Hx: no surgical history Social History Alcohol Use: none Smoking Status: Never smoker Drug Use: none Exam/Review of Systems Vital Signs Vitals Vital Signs Date Time Temp Pulse Resp B/P Pulse Ox O2 Delivery O2 Flow Rate FiO2 10/04/17 12:10 61 10/04/17 11:54 98.9 18 135/70 98 10/02/17 23:30 Nasal Cannula 2.0 Intake and Output 10/03/17 10/03/17 10/04/17 15:00 23:00 07:00 Intake Total 720 ml 500 ml Balance 720 ml 500 ml Exam Constitutional: alert Head: atraumatic, normocephalic Neck: non-tender, supple Respiratory: diminished breath sounds Cardiovascular: regular rate and rhythm Gastrointestinal: nl liver, spleen, non-tender, soft Extremities: normal pulses Results Result Diagram: 10/04/17 0743 10/04/17 0743 Results 24 hrs Laboratory Tests Test 10/03/17 17:01 10/03/17 18:08 10/03/17 21:27 10/04/17 00:48 Bedside Glucose 130 165 Creatine Kinase 138 137 Creatine Kinase Index 1.3 1.0 Creatinine Kinase MB (Mass) 1.76 1.37 Troponin I 0.065 0.048 Test 10/04/17 07:43 10/04/17 08:39 10/04/17 12:58 White Blood Count 8.3 Red Blood Count 3.66 L Hemoglobin 11.4 L Hematocrit 34.9 L Mean Corpuscular Volume 95.4 Mean Corpuscular Hemoglobin 31.1 Mean Corpuscular Hemoglobin Concent 32.7 Red Cell Distribution Width 11.9 Platelet Count 219 Mean Platelet Volume 10.2 Neutrophils % 59.6 Lymphocytes % 22.8 Monocytes % 14.3 H Eosinophils % 2.4 Basophils % 0.5 Nucleated Red Blood Cells % 0.0 Neutrophils # 5.0 Lymphocytes # 1.9 Monocytes # 1.2 H Eosinophils # 0.2 Basophils # 0.0 Nucleated Red Blood Cells # 0.0 Sodium Level 138 Potassium Level 4.7 Chloride Level 105 Carbon Dioxide Level 28 Anion Gap 10 Blood Urea Nitrogen 23 H Creatinine 1.42 H Glucose Level 149 Calcium Level 9.8 Creatine Kinase 126 Creatine Kinase Index 1.0 Creatinine Kinase MB (Mass) 1.29 Troponin I 0.038 B-Type Natriuretic Peptide 509 H Triglycerides Level 166 H Cholesterol Level 174 LDL Cholesterol, Calculated 99 HDL Cholesterol 42 Cholesterol/HDL Ratio 4.1 Bedside Glucose 152 171 Medications Medications Current Medications Acetaminophen (Tylenol Tab) 650 mg Q6H PRN PO PAIN AND OR ELEVATED TEMP; Start 10/03/17 at 01:30 Morphine Sulfate (morphine) 2 mg Q4H PRN IV PAIN Last administered on 13:04; Admin Dose 2 MG; Start 10/03/17 at 01:30 Ondansetron HCl (Zofran Inj) 4 mg Q6H PRN IV NAUSEA AND/OR VOMITING Last administered on 10/03/17 02:32; Admin Dose 4 MG; Start 10/03/17 at 01:30 Amitriptyline HCl (Elavil) 10 mg DAILY PO Last administered on 10/04/17 08:41 ; Admin Dose 10 MG; Start 10/03/17 at 09:00 Amlodipine Besylate (Norvasc) 10 mg DAILY PO Last administered on 10/04/17 08: 41; Admin Dose 10 MG; Start 10/03/17 at 09:00 Aspirin (Halfprin) 81 mg DAILY PO Last administered on 10/04/17 08:39; Admin Dose 81 MG; Start 10/03/17 at 09:00 Calcium Carbonate (Oyster Shell Calcium) 1.25 gm BID PO Last administered on 08:39; Admin Dose 1.25 GM; Start 10/03/17 at 09:00 Colesevelam HCl (Welchol) 625 mg TID PO Last administered on 10/04/17 12:59; Admin Dose 625 MG; Start 10/03/17 at 09:00 Docusate Sodium (Colace) 100 mg QID PO Last administered on 10/04/17 12:59; Admin Dose 100 MG; Start 10/03/17 at 09:00 Folic Acid (Folic Acid) 1 mg DAILY PO Last administered on 10/04/17 08:39; Admin Dose 1 MG; Start 10/03/17 at 09:00 Furosemide (Lasix) 20 mg DAILY PO Last administered on 10/04/17 08:40; Admin Dose 20 MG; Start 10/03/17 at 09:00 Metolazone (Zaroxolyn) 2.5 mg DAILY PO Last administered on 10/04/17 08:41; Admin Dose 2.5 MG; Start 10/03/17 at 09:00 Nystatin (Nystatin Cr) 1 applic BID TOP Last administered on 10/04/17 08:41; Admin Dose 1 APPLIC; Start 10/03/17 at 09:00 Pantoprazole (Protonix Tab) 40 mg DAILY@06 PO Last administered on 10/04/17 06 :13; Admin Dose 40 MG; Start 10/03/17 at 06:00 Ranolazine (Ranexa) 500 mg Q12 PO Last administered on 10/04/17 08:39; Admin Dose 500 MG; Start 10/03/17 at 09:00 Gabapentin (Neurontin) 100 mg TID PO Last administered on 10/04/17 13:00; Admin Dose 100 MG; Start 10/03/17 at 09:00 Miscellaneous Information 1 drop QID BOTH EYES ; Start 10/03/17 at 09:00; Status UNV Naproxen (Naprosyn) 375 mg BID PRN PO PAIN; Start 10/03/17 at 01:30 Diagnostic Test (Pha) (Accu-Chek) 1 ea 02 XX ; Start 10/03/17 at 02:00 Acetaminophen/ Hydrocodone Bitart ([place] (7.5-325)) 1 tab Q6H PRN PO PAIN Last administered on 10/03/17 20:33; Admin Dose 1 TAB; Start 10/03/17 at 03:00 Atorvastatin Calcium (Lipitor) 20 mg DAILY@21 PO ; Start 10/04/17 at 21:00 ALVERTO BARON M.D. Oct 04, 2017 14:14
[2017-10-04] MEDS: ATORVASTATIN 20 MG TAB PO SCH (21:47)
[2017-10-05] VITALS (12 sets, daily range): BP systolic 131–167; BP diastolic 61–86; PULSE 58–76; RESP 18
[2017-10-05] MEDS: ACCU-CHEK XX SCH (02:10)
[2017-10-05] MEDS: morphine 2 MG INJ IV PRN ×3 (02:56→17:59)
[2017-10-05] MEDS: PANTOPRAZOLE (EC) 40 MG TAB PO SCH (06:01)
[2017-10-05 08:42] LABS: BASOPHILS % 0.3 % (0.0-2.0); EOSINOPHILS # 0.1 10^3/ul (0.0-0.5); EOSINOPHILS % 1.3 % (0.0-7.0); HEMATOCRIT 34.8 % (37.0-47.0); HEMOGLOBIN 11.8 g/dl (12.0-16.0); LYMPHOCYTES # 1.6 10^3/ul (0.8-2.9); LYMPHOCYTES % 19.5 % (15.0-51.0); MEAN CORPUSCULAR HEMOGLOBIN 31.3 pg (29.0-33.0); MEAN CORPUSCULAR HGB CONC 33.9 g/dl (32.0-37.0); MEAN CORPUSCULAR VOLUME 92.3 fl (82.0-101.0); MEAN PLATELET VOLUME 10.3 fl (7.4-10.4); MONOCYTE # 1.2 10^3/ul (0.3-0.9); MONOCYTES % 14.6 % (0.0-11.0); NEUTROPHIL # 5.1 10^3/ul (1.6-7.5); PLATELET COUNT 214 10^3/UL (140-415); RED BLOOD COUNT 3.77 10^6/ul (4.20-5.40); RED CELL DISTRIBUTION WIDTH 11.6 % (11.5-14.5); WHITE BLOOD COUNT 7.9 10^3/ul (4.8-10.8)
[2017-10-05 08:52] LABS: CALCIUM 9.7 mg/dl (8.4-10.2); CREATININE 1.24 mg/dl (0.44-1.00); POTASSIUM 3.7 mmol/L (3.5-5.1)
[2017-10-05] MEDS: GABAPENTIN 100 MG CAP PO SCH ×3 (09:08→21:22)
[2017-10-05] MEDS: CALCIUM CARBONATE 1.25 GM TAB PO SCH ×2 (09:10→21:22)
[2017-10-05] MEDS: RANOLAZINE (SR) 500 MG TAB PO SCH ×2 (09:10→21:22)
[2017-10-05] MEDS: COLESEVELAM 625 MG TAB PO SCH ×3 (09:10→21:00)
[2017-10-05] MEDS: AMITRIPTYLINE 10 MG TAB PO SCH (09:10)
[2017-10-05] MEDS: DOCUSATE SODIUM 100 MG CAP PO SCH ×4 (09:10→21:22)
[2017-10-05] MEDS: ASPIRIN (EC) 81 MG TAB PO SCH (09:10)
[2017-10-05] MEDS: AMLODIPINE 10 MG TAB PO SCH (09:10)
[2017-10-05] MEDS: FOLIC ACID 1 MG TAB PO SCH (09:10)
[2017-10-05] MEDS: METOLAZONE 2.5 MG TAB PO SCH (09:10)
[2017-10-05] MEDS: NYSTATIN 15 GM CR TOP SCH ×2 (09:11→21:22)
[2017-10-05] MEDS: FUROSEMIDE 20 MG TAB PO SCH (09:11)
[2017-10-05] MEDS: INSULIN ASPART [NOVOLOG] 3 ML PEN SC SCH ×4 (09:20→21:00)
--- NOTE | 2017-10-05 11:30 | CONS ---
Date/Time of Note Date/Time of Note DATE: 10/05/17 TIME: 11:29 Assessment/Plan Assessment/Plan Additional Assessment/Plan Chest pain, likely secondary to rib fracture Abnormal electrocardiogram with nonspecific ST-T abnormalities Hypertension Sinus Bradycardia resolved Diabetes mellitus. Status post fall Hemodynamically stable Ruled for ACS Echo shows preserved systolic function with no segmental wall motion abnormality Continue Lasix and Zaroxolyn Continue Norvasc Continue Insulin Continue Lipitor Avoid AV Dharmesh medications stopped Welchol Consultation Date/Type/Reason Admit Date/Time Oct 02, 2017 at 22:30 Initial Consult Date Exam/Review of Systems Vital Signs Vitals Vital Signs Date Time Temp Pulse Resp B/P Pulse Ox O2 Delivery O2 Flow Rate FiO2 10/05/17 08:12 69 10/05/17 08:05 98.6 18 167/74 98 10/02/17 23:30 Nasal Cannula 2.0 Intake and Output 10/04/17 10/04/17 10/05/17 15:00 23:00 07:00 Intake Total 320 ml Balance 320 ml Exam Constitutional: alert Head: atraumatic, normocephalic Neck: non-tender, supple Respiratory: clear to auscultation Cardiovascular: regular rate and rhythm Gastrointestinal: nl liver, spleen, non-tender, soft Extremities: normal pulses Results Result Diagram: 10/05/17 0800 10/05/17 0745 Results 24 hrs Laboratory Tests Test 10/04/17 12:58 10/04/17 17:24 10/04/17 21:45 10/05/17 02:01 Bedside Glucose 171 157 216 195 Test 10/05/17 07:45 10/05/17 08:00 10/05/17 09:07 Sodium Level 138 Potassium Level 3.7 Chloride Level 98 Carbon Dioxide Level 32 H Anion Gap 12 Blood Urea Nitrogen 18 Creatinine 1.24 H Glucose Level 183 Calcium Level 9.7 White Blood Count 7.9 Red Blood Count 3.77 L Hemoglobin 11.8 L Hematocrit 34.8 L Mean Corpuscular Volume 92.3 Mean Corpuscular Hemoglobin 31.3 Mean Corpuscular Hemoglobin Concent 33.9 Red Cell Distribution Width 11.6 Platelet Count 214 Mean Platelet Volume 10.3 Neutrophils % 64.0 Lymphocytes % 19.5 Monocytes % 14.6 H Eosinophils % 1.3 Basophils % 0.3 Nucleated Red Blood Cells % 0.0 Neutrophils # 5.1 Lymphocytes # 1.6 Monocytes # 1.2 H Eosinophils # 0.1 Basophils # 0.0 Nucleated Red Blood Cells # 0.0 Bedside Glucose 178 Medications Medications Current Medications Acetaminophen (Tylenol Tab) 650 mg Q6H PRN PO PAIN AND OR ELEVATED TEMP; Start 10/03/17 at 01:30 Morphine Sulfate (morphine) 2 mg Q4H PRN IV PAIN Last administered on 09:11; Admin Dose 2 MG; Start 10/03/17 at 01:30 Ondansetron HCl (Zofran Inj) 4 mg Q6H PRN IV NAUSEA AND/OR VOMITING Last administered on 10/03/17 02:32; Admin Dose 4 MG; Start 10/03/17 at 01:30 Amitriptyline HCl (Elavil) 10 mg DAILY PO Last administered on 10/05/17 09:10 ; Admin Dose 10 MG; Start 10/03/17 at 09:00 Amlodipine Besylate (Norvasc) 10 mg DAILY PO Last administered on 10/05/17 09: 10; Admin Dose 10 MG; Start 10/03/17 at 09:00 Aspirin (Halfprin) 81 mg DAILY PO Last administered on 10/05/17 09:10; Admin Dose 81 MG; Start 10/03/17 at 09:00 Calcium Carbonate (Oyster Shell Calcium) 1.25 gm BID PO Last administered on 09:10; Admin Dose 1.25 GM; Start 10/03/17 at 09:00 Colesevelam HCl (Welchol) 625 mg TID PO Last administered on 10/05/17 09:10; Admin Dose 625 MG; Start 10/03/17 at 09:00 Docusate Sodium (Colace) 100 mg QID PO Last administered on 10/05/17 09:10; Admin Dose 100 MG; Start 10/03/17 at 09:00 Folic Acid (Folic Acid) 1 mg DAILY PO Last administered on 10/05/17 09:10; Admin Dose 1 MG; Start 10/03/17 at 09:00 Furosemide (Lasix) 20 mg DAILY PO Last administered on 10/05/17 09:11; Admin Dose 20 MG; Start 10/03/17 at 09:00 Metolazone (Zaroxolyn) 2.5 mg DAILY PO Last administered on 10/05/17 09:10; Admin Dose 2.5 MG; Start 10/03/17 at 09:00 Nystatin (Nystatin Cr) 1 applic BID TOP Last administered on 10/05/17 09:11; Admin Dose 1 APPLIC; Start 10/03/17 at 09:00 Pantoprazole (Protonix Tab) 40 mg DAILY@06 PO Last administered on 10/05/17 06 :01; Admin Dose 40 MG; Start 10/03/17 at 06:00 Ranolazine (Ranexa) 500 mg Q12 PO Last administered on 10/05/17 09:10; Admin Dose 500 MG; Start 10/03/17 at 09:00 Gabapentin (Neurontin) 100 mg TID PO Last administered on 10/05/17 09:08; Admin Dose 100 MG; Start 10/03/17 at 09:00 Miscellaneous Information 1 drop QID BOTH EYES ; Start 10/03/17 at 09:00; Status UNV Naproxen (Naprosyn) 375 mg BID PRN PO PAIN; Start 10/03/17 at 01:30 Diagnostic Test (Pha) (Accu-Chek) 1 ea 02 XX Last administered on 10/05/17 02: 10; Admin Dose 1 EA; Start 10/03/17 at 02:00 Acetaminophen/ Hydrocodone Bitart ([place] (7.5-325)) 1 tab Q6H PRN PO PAIN Last administered on 10/03/17 20:33; Admin Dose 1 TAB; Start 10/03/17 at 03:00 Atorvastatin Calcium (Lipitor) 20 mg DAILY@21 PO Last administered on 21:47; Admin Dose 20 MG; Start 10/04/17 at 21:00 ALVERTO BARON M.D. Oct 05, 2017 11:30
--- NOTE | 2017-10-05 14:19 | PN ---
Date/Time of Note Date/Time of Note DATE: 10/05/17 TIME: 14:18 Assessment/Plan VTE Prophylaxis VTE Prophylaxis Intervention: other Lines/Catheters IV [facility] Type [facility]from [facility] Urinary Cath still in place: No Assessment/Plan Chief Complaint/Hosp Course 1. S/p fall with acute rib fractures of 5, 6, 7 2. Hypertension 3. Morbid obesity 4. Multilevel degenerative spondylosis of the thoracic spine. 5. Dm type II, controlled 6. Anemia 7. dyslipidemia 8 ckd 9 s/p fall plan pain meds Problems: Subjective 24 Hr Interval Summary Respiratory: shortness of breath (less) Exam/Review of Systems Vital Signs Vitals Vital Signs Date Time Temp Pulse Resp B/P Pulse Ox O2 Delivery O2 Flow Rate FiO2 10/05/17 12:28 63 10/05/17 12:13 98.4 18 142/64 99 10/02/17 23:30 Nasal Cannula 2.0 Intake and Output 10/04/17 10/04/17 10/05/17 15:00 23:00 07:00 Intake Total 320 ml Balance 320 ml Exam Neck: supple Respiratory: diminished breath sounds Cardiovascular: regular rate and rhythm Gastrointestinal: bowel sounds (+), soft Musculoskeletal: nl extremities to inspection Extremities: edema (+) Results Result Diagram: 10/05/17 0800 10/05/17 0745 Results 24 hrs Laboratory Tests Test 10/04/17 17:24 10/04/17 21:45 10/05/17 02:01 10/05/17 07:45 Bedside Glucose 157 216 195 Sodium Level 138 Potassium Level 3.7 Chloride Level 98 Carbon Dioxide Level 32 H Anion Gap 12 Blood Urea Nitrogen 18 Creatinine 1.24 H Glucose Level 183 Calcium Level 9.7 Test 10/05/17 08:00 10/05/17 09:07 White Blood Count 7.9 Red Blood Count 3.77 L Hemoglobin 11.8 L Hematocrit 34.8 L Mean Corpuscular Volume 92.3 Mean Corpuscular Hemoglobin 31.3 Mean Corpuscular Hemoglobin Concent 33.9 Red Cell Distribution Width 11.6 Platelet Count 214 Mean Platelet Volume 10.3 Neutrophils % 64.0 Lymphocytes % 19.5 Monocytes % 14.6 H Eosinophils % 1.3 Basophils % 0.3 Nucleated Red Blood Cells % 0.0 Neutrophils # 5.1 Lymphocytes # 1.6 Monocytes # 1.2 H Eosinophils # 0.1 Basophils # 0.0 Nucleated Red Blood Cells # 0.0 Bedside Glucose 178 Medications Medications Current Medications Acetaminophen (Tylenol Tab) 650 mg Q6H PRN PO PAIN AND OR ELEVATED TEMP; Start 10/03/17 at 01:30 Morphine Sulfate (morphine) 2 mg Q4H PRN IV PAIN Last administered on 09:11; Admin Dose 2 MG; Start 10/03/17 at 01:30 Ondansetron HCl (Zofran Inj) 4 mg Q6H PRN IV NAUSEA AND/OR VOMITING Last administered on 10/03/17 02:32; Admin Dose 4 MG; Start 10/03/17 at 01:30 Amitriptyline HCl (Elavil) 10 mg DAILY PO Last administered on 10/05/17 09:10 ; Admin Dose 10 MG; Start 10/03/17 at 09:00 Amlodipine Besylate (Norvasc) 10 mg DAILY PO Last administered on 10/05/17 09: 10; Admin Dose 10 MG; Start 10/03/17 at 09:00 Aspirin (Halfprin) 81 mg DAILY PO Last administered on 10/05/17 09:10; Admin Dose 81 MG; Start 10/03/17 at 09:00 Calcium Carbonate (Oyster Shell Calcium) 1.25 gm BID PO Last administered on 09:10; Admin Dose 1.25 GM; Start 10/03/17 at 09:00 Colesevelam HCl (Welchol) 625 mg TID PO Last administered on 10/05/17 13:27; Admin Dose 625 MG; Start 10/03/17 at 09:00 Docusate Sodium (Colace) 100 mg QID PO Last administered on 10/05/17 13:27; Admin Dose 100 MG; Start 10/03/17 at 09:00 Folic Acid (Folic Acid) 1 mg DAILY PO Last administered on 10/05/17 09:10; Admin Dose 1 MG; Start 10/03/17 at 09:00 Furosemide (Lasix) 20 mg DAILY PO Last administered on 10/05/17 09:11; Admin Dose 20 MG; Start 10/03/17 at 09:00 Metolazone (Zaroxolyn) 2.5 mg DAILY PO Last administered on 10/05/17 09:10; Admin Dose 2.5 MG; Start 10/03/17 at 09:00 Nystatin (Nystatin Cr) 1 applic BID TOP Last administered on 10/05/17 09:11; Admin Dose 1 APPLIC; Start 10/03/17 at 09:00 Pantoprazole (Protonix Tab) 40 mg DAILY@06 PO Last administered on 10/05/17 06 :01; Admin Dose 40 MG; Start 10/03/17 at 06:00 Ranolazine (Ranexa) 500 mg Q12 PO Last administered on 10/05/17 09:10; Admin Dose 500 MG; Start 10/03/17 at 09:00 Gabapentin (Neurontin) 100 mg TID PO Last administered on 10/05/17 13:27; Admin Dose 100 MG; Start 10/03/17 at 09:00 Miscellaneous Information 1 drop QID BOTH EYES ; Start 10/03/17 at 09:00; Status UNV Naproxen (Naprosyn) 375 mg BID PRN PO PAIN; Start 10/03/17 at 01:30 Diagnostic Test (Pha) (Accu-Chek) 1 ea 02 XX Last administered on 10/05/17 02: 10; Admin Dose 1 EA; Start 10/03/17 at 02:00 Acetaminophen/ Hydrocodone Bitart ([place] (7.5-325)) 1 tab Q6H PRN PO PAIN Last administered on 10/03/17 20:33; Admin Dose 1 TAB; Start 10/03/17 at 03:00 Atorvastatin Calcium (Lipitor) 20 mg DAILY@21 PO Last administered on 21:47; Admin Dose 20 MG; Start 10/04/17 at 21:00 ROGERS SALAZAR MD Oct 05, 2017 14:19
[2017-10-05] MEDS: ATORVASTATIN 20 MG TAB PO SCH (21:22)
[2017-10-06] VITALS (10 sets, daily range): BP systolic 134–150; BP diastolic 64–87; PULSE 61–70; RESP 17–20
[2017-10-06] MEDS: morphine 2 MG INJ IV PRN ×3 (00:37→12:12)
[2017-10-06] MEDS: ACCU-CHEK XX SCH (02:00)
[2017-10-06] MEDS: PANTOPRAZOLE (EC) 40 MG TAB PO SCH (05:54)
[2017-10-06] MEDS: [UNRECOGNIZED DRUG - REMARK] XX SCH ×2 (07:30→15:30)
[2017-10-06] MEDS: INSULIN ASPART [NOVOLOG] 3 ML PEN SC SCH ×4 (08:30→22:50)
[2017-10-06] MEDS: COLESEVELAM 625 MG TAB PO SCH (09:00)
[2017-10-06] MEDS: RANOLAZINE (SR) 500 MG TAB PO SCH ×2 (09:39→22:49)
[2017-10-06] MEDS: DOCUSATE SODIUM 100 MG CAP PO SCH ×4 (09:39→22:50)
[2017-10-06] MEDS: GABAPENTIN 100 MG CAP PO SCH ×3 (09:40→22:49)
[2017-10-06] MEDS: CALCIUM CARBONATE 1.25 GM TAB PO SCH ×2 (09:40→22:49)
[2017-10-06] MEDS: METOLAZONE 2.5 MG TAB PO SCH (09:40)
[2017-10-06] MEDS: AMITRIPTYLINE 10 MG TAB PO SCH (09:40)
[2017-10-06] MEDS: AMLODIPINE 10 MG TAB PO SCH (09:40)
[2017-10-06] MEDS: FOLIC ACID 1 MG TAB PO SCH (09:41)
[2017-10-06] MEDS: FUROSEMIDE 20 MG TAB PO SCH (09:41)
[2017-10-06] MEDS: ASPIRIN (EC) 81 MG TAB PO SCH (09:41)
[2017-10-06] MEDS: NYSTATIN 15 GM CR TOP SCH ×2 (09:42→22:49)
[2017-10-06] MEDS: ATORVASTATIN 20 MG TAB PO SCH (22:49)
--- NOTE | 2017-10-06 23:14 | PN ---
Date/Time of Note Date/Time of Note DATE: 10/06/17 TIME: 23:13 Assessment/Plan VTE Prophylaxis VTE Prophylaxis Intervention: other Lines/Catheters IV Catheter Type (from Nrs): Saline Lock Urinary Cath still in place: No Assessment/Plan Chief Complaint/Hosp Course 1. S/p fall with acute rib fractures of 5, 6, 7 2. Hypertension 3. Morbid obesity 4. Multilevel degenerative spondylosis of the thoracic spine. 5. Dm type II, controlled 6. Anemia 7. dyslipidemia 8 ckd 9 s/p fall plan pain meds ck xr chest Problems: Subjective 24 Hr Interval Summary Respiratory: shortness of breath (better) Exam/Review of Systems Vital Signs Vitals Vital Signs Date Time Temp Pulse Resp B/P Pulse Ox O2 Delivery O2 Flow Rate FiO2 10/06/17 20:00 98.4 66 20 149/65 94 10/06/17 08:30 Nasal Cannula 2.0 Intake and Output 10/05/17 10/05/17 10/06/17 15:00 23:00 07:00 Intake Total 600 ml Balance 600 ml Exam Neck: supple Respiratory: diminished breath sounds Cardiovascular: regular rate and rhythm Gastrointestinal: bowel sounds (+), soft Extremities: edema (+) Results Result Diagram: 10/05/17 0800 10/05/17 0745 Results 24 hrs Laboratory Tests Test 10/06/17 08:27 10/06/17 11:57 10/06/17 17:29 Bedside Glucose 176 284 H 196 Medications Medications Current Medications Acetaminophen (Tylenol Tab) 650 mg Q6H PRN PO PAIN AND OR ELEVATED TEMP; Start 10/03/17 at 01:30 Morphine Sulfate (morphine) 2 mg Q4H PRN IV PAIN Last administered on 12:12; Admin Dose 2 MG; Start 10/03/17 at 01:30 Ondansetron HCl (Zofran Inj) 4 mg Q6H PRN IV NAUSEA AND/OR VOMITING Last administered on 10/03/17 02:32; Admin Dose 4 MG; Start 10/03/17 at 01:30 Amitriptyline HCl (Elavil) 10 mg DAILY PO Last administered on 10/06/17 09:40 ; Admin Dose 10 MG; Start 10/03/17 at 09:00 Amlodipine Besylate (Norvasc) 10 mg DAILY PO Last administered on 10/06/17 09: 40; Admin Dose 10 MG; Start 10/03/17 at 09:00 Aspirin (Halfprin) 81 mg DAILY PO Last administered on 10/06/17 09:41; Admin Dose 81 MG; Start 10/03/17 at 09:00 Calcium Carbonate (Oyster Shell Calcium) 1.25 gm BID PO Last administered on 09:40; Admin Dose 1.25 GM; Start 10/03/17 at 09:00 Docusate Sodium (Colace) 100 mg QID PO Last administered on 10/06/17 12:11; Admin Dose 100 MG; Start 10/03/17 at 09:00 Folic Acid (Folic Acid) 1 mg DAILY PO Last administered on 10/06/17 09:41; Admin Dose 1 MG; Start 10/03/17 at 09:00 Furosemide (Lasix) 20 mg DAILY PO Last administered on 10/06/17 09:41; Admin Dose 20 MG; Start 10/03/17 at 09:00 Metolazone (Zaroxolyn) 2.5 mg DAILY PO Last administered on 10/06/17 09:40; Admin Dose 2.5 MG; Start 10/03/17 at 09:00 Nystatin (Nystatin Cr) 1 applic BID TOP Last administered on 10/06/17 09:42; Admin Dose 1 APPLIC; Start 10/03/17 at 09:00 Pantoprazole (Protonix Tab) 40 mg DAILY@06 PO Last administered on 10/06/17 05 :54; Admin Dose 40 MG; Start 10/03/17 at 06:00 Ranolazine (Ranexa) 500 mg Q12 PO Last administered on 10/06/17 09:39; Admin Dose 500 MG; Start 10/03/17 at 09:00 Gabapentin (Neurontin) 100 mg TID PO Last administered on 10/06/17 12:11; Admin Dose 100 MG; Start 10/03/17 at 09:00 Miscellaneous Information 1 drop QID XX ; Start 10/03/17 at 09:00; Status UNV Naproxen (Naprosyn) 375 mg BID PRN PO PAIN; Start 10/03/17 at 01:30 Diagnostic Test (Pha) (Accu-Chek) 1 ea 02 XX Last administered on 10/05/17 02: 10; Admin Dose 1 EA; Start 10/03/17 at 02:00 Acetaminophen/ Hydrocodone Bitart ([place] (7.5-325)) 1 tab Q6H PRN PO PAIN Last administered on 10/03/17 20:33; Admin Dose 1 TAB; Start 10/03/17 at 03:00 Atorvastatin Calcium (Lipitor) 20 mg DAILY@21 PO Last administered on 21:22; Admin Dose 20 MG; Start 10/04/17 at 21:00 Miscellaneous Information (*Order Clarification Bulletin) MEDICATION REQUIRES CLARIFICATION: Q8H XX ; Start 10/06/17 at 07:30 ROGERS SALAZAR MD Oct 06, 2017 23:14
--- NOTE | 2017-10-06 23:29 | CONS ---
Date/Time of Note Date/Time of Note DATE: 10/06/17 TIME: 23:22 Assessment/Plan Assessment/Plan Chief Complaint/Hosp Course IMPRESSION: 1. Chest pain, likely secondary to rib fracture, rule out acute coronary syndrome.-neg trop x 3/NL EF by echo but borderline severe 2. Abnormal electrocardiogram with nonspecific ST-T abnormalities, assess for acute coronary syndrome. 3. Shortness of breath, assess for congestive heart failure. 4. Hypertension, under reasonable control. 5. Bradycardia, mild with stable blood pressure. 6. Diabetes mellitus. 7. Status post fall, rule out cardiac etiology. Rule out cardiac arrhythmia. 8. -borderline severe Recc: -Tele -continue norvasc -Continue asa/statin -Continue ranexa -will require further work up of , likely can be done as outpatient - Problems: Consultation Date/Type/Reason Admit Date/Time Oct 02, 2017 at 22:30 Initial Consult Date 10/03/2017 Type of Consultation: cardiology Reason for Consultation chest pain Exam/Review of Systems Vital Signs Vitals Vital Signs Date Time Temp Pulse Resp B/P Pulse Ox O2 Delivery O2 Flow Rate FiO2 10/06/17 20:00 98.4 66 20 149/65 94 10/06/17 08:30 Nasal Cannula 2.0 Intake and Output 10/05/17 10/05/17 10/06/17 15:00 23:00 07:00 Intake Total 600 ml Balance 600 ml Exam Review of Systems: CONSTITUTIONAL: No fevers, chills. PULMONARY: No sob CARDIOVASCULAR: No chest pain/palpitations GASTROINTESTINAL: No nausea/vomiting. GENITOURINARY: No hematuria/dysuria. MUSCULOSKELETAL: No myagias/arthalgias. PSYCHIATRIC: The patient denies depression. NEUROLOGIC: No weakness Constitutional: alert Psych: no complaints Head: normocephalic ENMT: mucosa pink and moist Neck: jvd (8 cm water), supple Respiratory: clear to auscultation Cardiovascular: regular rate and rhythm Gastrointestinal: non-tender, soft Musculoskeletal: muscle tone (normal) Extremities: edema (none) Neurological: other (No focal deficits) Results Result Diagram: 10/05/17 0800 10/05/17 0745 Results 24 hrs Laboratory Tests Test 10/06/17 08:27 10/06/17 11:57 10/06/17 17:29 Bedside Glucose 176 284 H 196 Medications Medications Current Medications Acetaminophen (Tylenol Tab) 650 mg Q6H PRN PO PAIN AND OR ELEVATED TEMP; Start 10/03/17 at 01:30 Morphine Sulfate (morphine) 2 mg Q4H PRN IV PAIN Last administered on 12:12; Admin Dose 2 MG; Start 10/03/17 at 01:30 Ondansetron HCl (Zofran Inj) 4 mg Q6H PRN IV NAUSEA AND/OR VOMITING Last administered on 10/03/17 02:32; Admin Dose 4 MG; Start 10/03/17 at 01:30 Amitriptyline HCl (Elavil) 10 mg DAILY PO Last administered on 10/06/17 09:40 ; Admin Dose 10 MG; Start 10/03/17 at 09:00 Amlodipine Besylate (Norvasc) 10 mg DAILY PO Last administered on 10/06/17 09: 40; Admin Dose 10 MG; Start 10/03/17 at 09:00 Aspirin (Halfprin) 81 mg DAILY PO Last administered on 10/06/17 09:41; Admin Dose 81 MG; Start 10/03/17 at 09:00 Calcium Carbonate (Oyster Shell Calcium) 1.25 gm BID PO Last administered on 09:40; Admin Dose 1.25 GM; Start 10/03/17 at 09:00 Docusate Sodium (Colace) 100 mg QID PO Last administered on 10/06/17 12:11; Admin Dose 100 MG; Start 10/03/17 at 09:00 Folic Acid (Folic Acid) 1 mg DAILY PO Last administered on 10/06/17 09:41; Admin Dose 1 MG; Start 10/03/17 at 09:00 Furosemide (Lasix) 20 mg DAILY PO Last administered on 10/06/17 09:41; Admin Dose 20 MG; Start 10/03/17 at 09:00 Metolazone (Zaroxolyn) 2.5 mg DAILY PO Last administered on 10/06/17 09:40; Admin Dose 2.5 MG; Start 10/03/17 at 09:00 Nystatin (Nystatin Cr) 1 applic BID TOP Last administered on 10/06/17 09:42; Admin Dose 1 APPLIC; Start 10/03/17 at 09:00 Pantoprazole (Protonix Tab) 40 mg DAILY@06 PO Last administered on 10/06/17 05 :54; Admin Dose 40 MG; Start 10/03/17 at 06:00 Ranolazine (Ranexa) 500 mg Q12 PO Last administered on 10/06/17 09:39; Admin Dose 500 MG; Start 10/03/17 at 09:00 Gabapentin (Neurontin) 100 mg TID PO Last administered on 10/06/17 12:11; Admin Dose 100 MG; Start 10/03/17 at 09:00 Miscellaneous Information 1 drop QID XX ; Start 10/03/17 at 09:00; Status UNV Naproxen (Naprosyn) 375 mg BID PRN PO PAIN; Start 10/03/17 at 01:30 Diagnostic Test (Pha) (Accu-Chek) 1 ea 02 XX Last administered on 10/05/17 02: 10; Admin Dose 1 EA; Start 10/03/17 at 02:00 Acetaminophen/ Hydrocodone Bitart ([place] (7.5-325)) 1 tab Q6H PRN PO PAIN Last administered on 10/03/17 20:33; Admin Dose 1 TAB; Start 10/03/17 at 03:00 Atorvastatin Calcium (Lipitor) 20 mg DAILY@21 PO Last administered on 21:22; Admin Dose 20 MG; Start 10/04/17 at 21:00 Miscellaneous Information (*Order Clarification Bulletin) MEDICATION REQUIRES CLARIFICATION: Q8H XX ; Start 10/06/17 at 07:30 ALMAZ TITUS 6, 2017 23:29
[2017-10-07] VITALS (13 sets, daily range): BP systolic 132–159; BP diastolic 60–69; PULSE 53–70; RESP 17–20
[2017-10-07] MEDS: [UNRECOGNIZED DRUG - REMARK] XX SCH ×4 (00:44→23:30)
[2017-10-07] MEDS: morphine 2 MG INJ IV PRN ×2 (01:00→20:06)
[2017-10-07] MEDS: ACCU-CHEK XX SCH (02:18)
[2017-10-07] MEDS: PANTOPRAZOLE (EC) 40 MG TAB PO SCH (05:39)
[2017-10-07] MEDS: INSULIN ASPART [NOVOLOG] 3 ML PEN SC SCH ×4 (08:00→21:17)
[2017-10-07] MEDS: NYSTATIN 15 GM CR TOP SCH ×2 (09:11→20:07)
[2017-10-07] MEDS: GABAPENTIN 100 MG CAP PO SCH ×3 (09:12→20:06)
[2017-10-07] MEDS: RANOLAZINE (SR) 500 MG TAB PO SCH ×2 (09:12→20:06)
[2017-10-07] MEDS: ASPIRIN (EC) 81 MG TAB PO SCH (09:13)
[2017-10-07] MEDS: FOLIC ACID 1 MG TAB PO SCH (09:13)
[2017-10-07] MEDS: AMLODIPINE 10 MG TAB PO SCH (09:13)
[2017-10-07] MEDS: DOCUSATE SODIUM 100 MG CAP PO SCH ×4 (09:13→20:06)
[2017-10-07] MEDS: CALCIUM CARBONATE 1.25 GM TAB PO SCH ×2 (09:13→20:06)
[2017-10-07] MEDS: FUROSEMIDE 20 MG TAB PO SCH (09:13)
[2017-10-07] MEDS: METOLAZONE 2.5 MG TAB PO SCH (09:14)
[2017-10-07] MEDS: AMITRIPTYLINE 10 MG TAB PO SCH (09:14)
--- NOTE | 2017-10-07 11:05 | CONS ---
Date/Time of Note Date/Time of Note DATE: 10/07/17 TIME: 11:04 Assessment/Plan Assessment/Plan Additional Assessment/Plan 1. Chest pain, likely secondary to rib fracture, rule out acute coronary syndrome.-neg trop x 3/NL EF by echo but borderline severe - no CP now, med RX advised. 2. Abnormal electrocardiogram with nonspecific ST-T abnormalities, assess for acute coronary syndrome- no CP now. 3. Shortness of breath, assess for congestive heart failure - stable fluid status by exam. 4. Hypertension, under reasonable control- isacc Rx medically as indicated. 5. Bradycardia, mild with stable blood pressure. NO indication for pacer now. 6. Diabetes mellitus. 7. Status post fall, rule out cardiac etiology. Rule out cardiac arrhythmia. 8. -borderline severe Consultation Date/Type/Reason Admit Date/Time Oct 02, 2017 at 22:30 Initial Consult Date Type of Consultation: cardiology 24 HR Interval Summary Free Text/Dictation NO acute e vents - no CP - no significant ectopy on tele ROS: No fever, no chills, no nausea, no vomiting, no diarrhea/constipation No recent weight changes No chest pain, no PND, no orthopnea + SOB No dizziness, blurred vision No thirst, no heat or cold intolerance Exam/Review of Systems Vital Signs Vitals Vital Signs Date Time Temp Pulse Resp B/P Pulse Ox O2 Delivery O2 Flow Rate FiO2 10/07/17 08:24 58 10/07/17 07:42 98.0 17 140/66 97 10/07/17 00:00 Nasal Cannula 2.0 Intake and Output 10/06/17 10/06/17 10/07/17 15:00 23:00 07:00 Intake Total 400 ml Balance 400 ml Exam General: WN/WD/NAD, AOx 2-3 HEENT: Unicetric/atraumatic/EOMI (follows commands) NECK: JVD elevated, no thyromegaly Lymph: no lymphadenopathy HEART: regular with no S3, II/ systolic murmur at apex, 2/6 m at apex LUNGS: Coarse sounds ABD: soft, NT, ND, +BS : Intact Neuro: non focal SKIN: chronic changes EXT: trace edema Results Result Diagram: 10/05/17 0800 10/05/17 0745 Results 24 hrs Laboratory Tests Test 10/06/17 11:57 10/06/17 17:29 11/6/17 20:36 10/07/17 02:08 Bedside Glucose 284 H 196 261 H 224 H Test 10/07/17 07:57 Bedside Glucose 259 H Medications Medications Current Medications Acetaminophen (Tylenol Tab) 650 mg Q6H PRN PO PAIN AND OR ELEVATED TEMP; Start 10/03/17 at 01:30 Morphine Sulfate (morphine) 2 mg Q4H PRN IV PAIN Last administered on 01:00; Admin Dose 2 MG; Start 10/03/17 at 01:30 Ondansetron HCl (Zofran Inj) 4 mg Q6H PRN IV NAUSEA AND/OR VOMITING Last administered on 10/03/17 02:32; Admin Dose 4 MG; Start 10/03/17 at 01:30 Amitriptyline HCl (Elavil) 10 mg DAILY PO Last administered on 10/07/17 09:14 ; Admin Dose 10 MG; Start 10/03/17 at 09:00 Amlodipine Besylate (Norvasc) 10 mg DAILY PO Last administered on 10/07/17 09: 13; Admin Dose 10 MG; Start 10/03/17 at 09:00 Aspirin (Halfprin) 81 mg DAILY PO Last administered on 10/07/17 09:13; Admin Dose 81 MG; Start 10/03/17 at 09:00 Calcium Carbonate (Oyster Shell Calcium) 1.25 gm BID PO Last administered on 09:13; Admin Dose 1.25 GM; Start 10/03/17 at 09:00 Docusate Sodium (Colace) 100 mg QID PO Last administered on 10/07/17 09:13; Admin Dose 100 MG; Start 10/03/17 at 09:00 Folic Acid (Folic Acid) 1 mg DAILY PO Last administered on 10/07/17 09:13; Admin Dose 1 MG; Start 10/03/17 at 09:00 Furosemide (Lasix) 20 mg DAILY PO Last administered on 10/07/17 09:13; Admin Dose 20 MG; Start 10/03/17 at 09:00 Metolazone (Zaroxolyn) 2.5 mg DAILY PO Last administered on 10/07/17 09:14; Admin Dose 2.5 MG; Start 10/03/17 at 09:00 Nystatin (Nystatin Cr) 1 applic BID TOP Last administered on 10/07/17 09:11; Admin Dose 1 APPLIC; Start 10/03/17 at 09:00 Pantoprazole (Protonix Tab) 40 mg DAILY@06 PO Last administered on 10/07/17 05 :39; Admin Dose 40 MG; Start 10/03/17 at 06:00 Ranolazine (Ranexa) 500 mg Q12 PO Last administered on 10/07/17 09:12; Admin Dose 500 MG; Start 10/03/17 at 09:00 Gabapentin (Neurontin) 100 mg TID PO Last administered on 10/07/17 09:12; Admin Dose 100 MG; Start 10/03/17 at 09:00 Miscellaneous Information 1 drop QID XX ; Start 10/03/17 at 09:00; Status UNV Naproxen (Naprosyn) 375 mg BID PRN PO PAIN; Start 10/03/17 at 01:30 Diagnostic Test (Pha) (Accu-Chek) 1 ea 02 XX Last administered on 10/07/17 02: 18; Admin Dose 1 EA; Start 10/03/17 at 02:00 Acetaminophen/ Hydrocodone Bitart ([place] (7.5-325)) 1 tab Q6H PRN PO PAIN Last administered on 10/03/17 20:33; Admin Dose 1 TAB; Start 10/03/17 at 03:00 Atorvastatin Calcium (Lipitor) 20 mg DAILY@21 PO Last administered on 21:22; Admin Dose 20 MG; Start 10/04/17 at 21:00 Miscellaneous Information (*Order Clarification Bulletin) MEDICATION REQUIRES CLARIFICATION: Q8H XX ; Start 10/06/17 at 07:30 HEATH MUSA MD Oct 07, 2017 11:05
--- NOTE | 2017-10-07 14:53 | RADRPT ---
Vent Rate: 62 bpm RR Interval: 0 msec [place] Interval: 154 msec QRS Duration: 132 msec QT Interval: 400 msec QTC Interval: 406 msec P-R-T [place]: 14 - 31 - 41 degrees Sinus rhythm with marked sinus arrhythmia Right bundle branch block Abnormal ECG Electronically Signed By: Jose Aj [id number]
--- NOTE | 2017-10-07 15:36 | RADRPT ---
PROCEDURE: XR Chest 1 view. CLINICAL INDICATION: Chest pain TECHNIQUE: AP views of the chest were obtained. COMPARISON: October 02, 2017 FINDINGS: The heart is large. Calcified atherosclerosis is noted in the aorta. Left lower lobe infiltrates, c ombined with small pleural effusion have developed. Atelectasis is identified at the right lung base . The lungs are hypoinflated. Osseous structures are intact. IMPRESSION: Cardiomegaly with calcified atherosclerosis in the aorta. Left lower lobe infiltrates and small left pleural effusion. Hypoinflated lungs with atelectasis at the right lung base. RPTAT: AA .Yobani Guevara MD, Date Time Electronically viewed and signed by .Yobani Guevara MD, on 10/07/2017 15:36 .P/
[2017-10-07] MEDS ORDERED: NACL 3% FOR INHALATION 15 ML NEBU NEB ONE (18:30)
[2017-10-07] MEDS: CEFTRIAXONE 1 GM/50 ML (PMX) 50 ML IVPB SCH (20:06)
[2017-10-07] MEDS: ATORVASTATIN 20 MG TAB PO SCH (20:06)
[2017-10-07] MEDS ORDERED: INSULIN GLARGINE [LANtus] 3 ML PEN SC SCH (21:00)
--- NOTE | 2017-10-07 22:09 | PN ---
Date/Time of Note Date/Time of Note DATE: 10/07/17 TIME: 22:08 Assessment/Plan VTE Prophylaxis VTE Prophylaxis Intervention: other Lines/Catheters IV Catheter Type (from Nrs): Saline Lock Urinary Cath still in place: No Assessment/Plan Chief Complaint/Hosp Course 1. S/p fall with acute rib fractures of 5, 6, 7 2. Hypertension 3. Morbid obesity 4. Multilevel degenerative spondylosis of the thoracic spine. 5. Dm type II, controlled 6. Anemia 7. dyslipidemia 8 ckd 9 s/p fall 10 lung infilterate plan pain meds ck xr chest hhn antibiotic Problems: Subjective 24 Hr Interval Summary Respiratory: No pleuritic pain, No shortness of breath Cardiovascular: no complaints Exam/Review of Systems Vital Signs Vitals Vital Signs Date Time Temp Pulse Resp B/P Pulse Ox O2 Delivery O2 Flow Rate FiO2 10/07/17 20:33 53 10/07/17 20:32 98.6 18 159/69 97 10/07/17 08:00 Nasal Cannula 2.0 Intake and Output 10/06/17 10/06/17 10/07/17 14:59 22:59 06:59 Intake Total 400 ml Balance 400 ml Exam Neck: supple Respiratory: clear to auscultation Cardiovascular: regular rate and rhythm Gastrointestinal: bowel sounds (+), soft Extremities: edema (+) Results Result Diagram: 10/05/17 0800 10/05/17 0745 Results 24 hrs Laboratory Tests Test 10/07/17 02:08 10/07/17 07:57 10/07/17 12:02 10/07/17 17:13 Bedside Glucose 224 H 259 H 313 H 288 H Test 10/07/17 21:06 Bedside Glucose 219 Medications Medications Current Medications Acetaminophen (Tylenol Tab) 650 mg Q6H PRN PO PAIN AND OR ELEVATED TEMP; Start 10/03/17 at 01:30 Morphine Sulfate (morphine) 2 mg Q4H PRN IV PAIN Last administered on 20:06; Admin Dose 2 MG; Start 10/03/17 at 01:30 Ondansetron HCl (Zofran Inj) 4 mg Q6H PRN IV NAUSEA AND/OR VOMITING Last administered on 10/03/17 02:32; Admin Dose 4 MG; Start 10/03/17 at 01:30 Amitriptyline HCl (Elavil) 10 mg DAILY PO Last administered on 10/07/17 09:14 ; Admin Dose 10 MG; Start 10/03/17 at 09:00 Amlodipine Besylate (Norvasc) 10 mg DAILY PO Last administered on 10/07/17 09: 13; Admin Dose 10 MG; Start 10/03/17 at 09:00 Aspirin (Halfprin) 81 mg DAILY PO Last administered on 10/07/17 09:13; Admin Dose 81 MG; Start 10/03/17 at 09:00 Calcium Carbonate (Oyster Shell Calcium) 1.25 gm BID PO Last administered on 20:06; Admin Dose 1.25 GM; Start 10/03/17 at 09:00 Docusate Sodium (Colace) 100 mg QID PO Last administered on 10/07/17 20:06; Admin Dose 100 MG; Start 10/03/17 at 09:00 Folic Acid (Folic Acid) 1 mg DAILY PO Last administered on 10/07/17 09:13; Admin Dose 1 MG; Start 10/03/17 at 09:00 Furosemide (Lasix) 20 mg DAILY PO Last administered on 10/07/17 09:13; Admin Dose 20 MG; Start 10/03/17 at 09:00 Metolazone (Zaroxolyn) 2.5 mg DAILY PO Last administered on 10/07/17 09:14; Admin Dose 2.5 MG; Start 10/03/17 at 09:00 Nystatin (Nystatin Cr) 1 applic BID TOP Last administered on 10/07/17 20:07; Admin Dose 1 APPLIC; Start 10/03/17 at 09:00 Pantoprazole (Protonix Tab) 40 mg DAILY@06 PO Last administered on 10/07/17 05 :39; Admin Dose 40 MG; Start 10/03/17 at 06:00 Ranolazine (Ranexa) 500 mg Q12 PO Last administered on 10/07/17 20:06; Admin Dose 500 MG; Start 10/03/17 at 09:00 Gabapentin (Neurontin) 100 mg TID PO Last administered on 10/07/17 20:06; Admin Dose 100 MG; Start 10/03/17 at 09:00 Miscellaneous Information 1 drop QID XX ; Start 10/03/17 at 09:00; Status UNV Naproxen (Naprosyn) 375 mg BID PRN PO PAIN; Start 10/03/17 at 01:30 Diagnostic Test (Pha) (Accu-Chek) 1 ea 02 XX Last administered on 10/07/17 02: 18; Admin Dose 1 EA; Start 10/03/17 at 02:00 Acetaminophen/ Hydrocodone Bitart ([place] (7.5-325)) 1 tab Q6H PRN PO PAIN Last administered on 10/03/17 20:33; Admin Dose 1 TAB; Start 10/03/17 at 03:00 Atorvastatin Calcium (Lipitor) 20 mg DAILY@21 PO Last administered on 20:06; Admin Dose 20 MG; Start 10/04/17 at 21:00 Miscellaneous Information (*Order Clarification Bulletin) MEDICATION REQUIRES CLARIFICATION: Q8H XX ; Start 10/06/17 at 07:30 Insulin Glargine 10 unit 10 unit QHS SC Last administered on 10/07/17 21:07; Admin Dose 10 UNIT; Start 10/07/17 at 21:00 Ceftriaxone Sodium (Rocephin) 50 ml @ 100 mls/hr Q24H IVPB Last administered on 10/07/17 20:06; Admin Dose 100 MLS/HR; Start 10/07/17 at 18:30 ROGERS SALAZAR MD Oct 07, 2017 22:09
[2017-10-07] MEDS: HYDROCODONE/APAP (7.5/325) TAB PO PRN (23:47)
[2017-10-08] VITALS (12 sets, daily range): BP systolic 104–174; BP diastolic 58–73; PULSE 50–64; RESP 17–18
[2017-10-08] MEDS: morphine 2 MG INJ IV PRN ×2 (01:41→08:27)
[2017-10-08] MEDS: ACCU-CHEK XX SCH (01:45)
[2017-10-08] MEDS ORDERED: NACL 3% FOR INHALATION 15 ML NEBU INH ONE (05:02)
[2017-10-08] MEDS: PANTOPRAZOLE (EC) 40 MG TAB PO SCH (05:46)
[2017-10-08] MEDS: [UNRECOGNIZED DRUG - REMARK] XX SCH ×3 (07:30→23:17)
[2017-10-08] MEDS: ALBUTEROL/IPRATROPIUM (NEB) 3 ML AMP HHN SCH ×3 (08:15→19:52)
[2017-10-08 08:21] LABS: BASOPHILS % 0.6 % (0.0-2.0); EOSINOPHILS # 0.3 10^3/ul (0.0-0.5); EOSINOPHILS % 3.8 % (0.0-7.0); HEMATOCRIT 34.1 % (37.0-47.0); HEMOGLOBIN 11.2 g/dl (12.0-16.0); LYMPHOCYTES # 1.7 10^3/ul (0.8-2.9); LYMPHOCYTES % 24.7 % (15.0-51.0); MEAN CORPUSCULAR HEMOGLOBIN 29.9 pg (29.0-33.0); MEAN CORPUSCULAR HGB CONC 32.8 g/dl (32.0-37.0); MEAN CORPUSCULAR VOLUME 91.2 fl (82.0-101.0); MEAN PLATELET VOLUME 10.2 fl (7.4-10.4); MONOCYTE # 1.1 10^3/ul (0.3-0.9); MONOCYTES % 15.6 % (0.0-11.0); NEUTROPHIL # 3.8 10^3/ul (1.6-7.5); PLATELET COUNT 230 10^3/UL (140-415); RED BLOOD COUNT 3.74 10^6/ul (4.20-5.40); RED CELL DISTRIBUTION WIDTH 11.7 % (11.5-14.5); WHITE BLOOD COUNT 6.8 10^3/ul (4.8-10.8)
[2017-10-08] MEDS: AMITRIPTYLINE 10 MG TAB PO SCH (08:22)
[2017-10-08] MEDS: FOLIC ACID 1 MG TAB PO SCH (08:22)
[2017-10-08] MEDS: DOCUSATE SODIUM 100 MG CAP PO SCH ×4 (08:22→20:07)
[2017-10-08] MEDS: CALCIUM CARBONATE 1.25 GM TAB PO SCH ×2 (08:22→20:07)
[2017-10-08] MEDS: AMLODIPINE 10 MG TAB PO SCH (08:22)
[2017-10-08] MEDS: RANOLAZINE (SR) 500 MG TAB PO SCH ×2 (08:22→20:07)
[2017-10-08] MEDS: FUROSEMIDE 20 MG TAB PO SCH (08:22)
[2017-10-08] MEDS: ASPIRIN (EC) 81 MG TAB PO SCH (08:22)
[2017-10-08] MEDS: GABAPENTIN 100 MG CAP PO SCH ×3 (08:22→20:07)
[2017-10-08] MEDS: METOLAZONE 2.5 MG TAB PO SCH (08:22)
[2017-10-08] MEDS: NYSTATIN 15 GM CR TOP SCH ×2 (08:23→20:16)
[2017-10-08] MEDS: INSULIN ASPART [NOVOLOG] 3 ML PEN SC SCH ×4 (08:26→20:11)
[2017-10-08 08:56] LABS: ALBUMIN 3.3 g/dl (3.3-4.9); ALBUMIN/GLOBULIN RATIO 0.91; BILIRUBIN,INDIRECT 0.2 mg/dl (0-1.1); BILIRUBIN,TOTAL 0.2 mg/dl (0.2-1.3); CALCIUM 9.8 mg/dl (8.4-10.2); CREATININE 1.32 mg/dl (0.44-1.00); POTASSIUM 3.5 mmol/L (3.5-5.1); TOTAL PROTEIN 6.9 g/dl (6.1-8.1)
[2017-10-08] MEDS: HYDROCODONE/APAP (7.5/325) TAB PO PRN (12:26)
[2017-10-08] MEDS ORDERED: GLUCOSE GEL 15 GRAM TUBE BUCCAL PRN (13:30)
[2017-10-08] MEDS ORDERED: DEXTROSE 50% 50 ML SYRINGE IV PRN ×2 (13:30)
[2017-10-08] MEDS ORDERED: GLUCAGON 1 MG INJ IM PRN (13:30)
[2017-10-08] MEDS ORDERED: GLUCOSE GEL 15 GRAM TUBE PO PRN ×2 (13:30)
[2017-10-08] MEDS: CEFTRIAXONE 1 GM/50 ML (PMX) 50 ML IVPB SCH (17:43)
[2017-10-08] MEDS ORDERED: INSULIN ASPART [NOVOLOG] 3 ML PEN SC SCH (18:05)
--- NOTE | 2017-10-08 19:08 | PN ---
Date/Time of Note Date/Time of Note DATE: 10/08/17 TIME: 19:07 Assessment/Plan VTE Prophylaxis VTE Prophylaxis Intervention: other Lines/Catheters IV [facility]ter Type (from [facility]): [facility] Urinary Cath still in place: No Assessment/Plan Chief Complaint/Hosp Course 1. S/p fall with acute rib fractures of 5, 6, 7 2. Hypertension 3. Morbid obesity 4. Multilevel degenerative spondylosis of the thoracic spine. 5. Dm type II, controlled 6. Anemia 7. dyslipidemia 8 ckd 9 s/p fall 10 lung infilterate plan pain meds hhn antibiotic Problems: Subjective 24 Hr Interval Summary Respiratory: no complaints, shortness of breath (better) Exam/Review of Systems Vital Signs Vitals Vital Signs Date Time Temp Pulse Resp B/P Pulse Ox O2 Delivery O2 Flow Rate FiO2 10/08/17 16:49 64 10/08/17 15:50 98.2 17 144/64 95 10/08/17 14:35 Nasal Cannula 3.0 Intake and Output 10/07/17 10/07/17 10/08/17 15:00 23:00 07:00 Intake Total 650 ml 500 ml Balance 650 ml 500 ml Exam Respiratory: diminished breath sounds Cardiovascular: regular rate and rhythm Gastrointestinal: soft Musculoskeletal: nl extremities to inspection Extremities: edema (+), normal pulses Results Result Diagram: 10/08/17 0753 10/08/17 0753 Results 24 hrs Laboratory Tests Test 10/07/17 21:06 10/08/17 01:44 10/08/17 07:53 10/08/17 08:12 Bedside Glucose 219 216 227 H White Blood Count 6.8 Red Blood Count 3.74 L Hemoglobin 11.2 L Hematocrit 34.1 L Mean Corpuscular Volume 91.2 Mean Corpuscular Hemoglobin 29.9 Mean Corpuscular Hemoglobin Concent 32.8 Red Cell Distribution Width 11.7 Platelet Count 230 Mean Platelet Volume 10.2 Neutrophils % 55.0 Lymphocytes % 24.7 Monocytes % 15.6 H Eosinophils % 3.8 Basophils % 0.6 Nucleated Red Blood Cells % 0.0 Neutrophils # 3.8 Lymphocytes # 1.7 Monocytes # 1.1 H Eosinophils # 0.3 Basophils # 0.0 Nucleated Red Blood Cells # 0.0 Sodium Level 137 Potassium Level 3.5 Chloride Level 95 L Carbon Dioxide Level 35 H Anion Gap 11 Blood Urea Nitrogen 38 H Creatinine 1.32 H Glucose Level 203 Calcium Level 9.8 Total Bilirubin 0.2 Direct Bilirubin 0.00 Indirect Bilirubin 0.2 Aspartate Amino Transf (AST/SGOT) 25 Alanine Aminotransferase (ALT/SGPT) 29 Alkaline Phosphatase 73 Total Protein 6.9 Albumin 3.3 Globulin 3.60 H Albumin/Globulin Ratio 0.91 Test 10/08/17 12:29 10/08/17 17:20 Bedside Glucose 312 H 268 H Medications Medications Current Medications Acetaminophen (Tylenol Tab) 650 mg Q6H PRN PO PAIN AND OR ELEVATED TEMP; Start 10/03/17 at 01:30 Morphine Sulfate (morphine) 2 mg Q4H PRN IV PAIN Last administered on 08:27; Admin Dose 2 MG; Start 10/03/17 at 01:30 Ondansetron HCl (Zofran Inj) 4 mg Q6H PRN IV NAUSEA AND/OR VOMITING Last administered on 10/03/17 02:32; Admin Dose 4 MG; Start 10/03/17 at 01:30 Amitriptyline HCl (Elavil) 10 mg DAILY PO Last administered on 10/08/17 08:22 ; Admin Dose 10 MG; Start 10/03/17 at 09:00 Amlodipine Besylate (Norvasc) 10 mg DAILY PO Last administered on 10/08/17 08: 22; Admin Dose 10 MG; Start 10/03/17 at 09:00 Aspirin (Halfprin) 81 mg DAILY PO Last administered on 10/08/17 08:22; Admin Dose 81 MG; Start 10/03/17 at 09:00 Calcium Carbonate (Oyster Shell Calcium) 1.25 gm BID PO Last administered on 08:22; Admin Dose 1.25 GM; Start 10/03/17 at 09:00 Docusate Sodium (Colace) 100 mg QID PO Last administered on 10/08/17 17:35; Admin Dose 100 MG; Start 10/03/17 at 09:00 Folic Acid (Folic Acid) 1 mg DAILY PO Last administered on 10/08/17 08:22; Admin Dose 1 MG; Start 10/03/17 at 09:00 Furosemide (Lasix) 20 mg DAILY PO Last administered on 10/08/17 08:22; Admin Dose 20 MG; Start 10/03/17 at 09:00 Metolazone (Zaroxolyn) 2.5 mg DAILY PO Last administered on 10/08/17 08:22; Admin Dose 2.5 MG; Start 10/03/17 at 09:00 Nystatin (Nystatin Cr) 1 applic BID TOP Last administered on 10/08/17 08:23; Admin Dose 1 APPLIC; Start 10/03/17 at 09:00 Pantoprazole (Protonix Tab) 40 mg DAILY@06 PO Last administered on 10/08/17 05 :46; Admin Dose 40 MG; Start 10/03/17 at 06:00 Ranolazine (Ranexa) 500 mg Q12 PO Last administered on 10/08/17 08:22; Admin Dose 500 MG; Start 10/03/17 at 09:00 Gabapentin (Neurontin) 100 mg TID PO Last administered on 10/08/17 12:27; Admin Dose 100 MG; Start 10/03/17 at 09:00 Miscellaneous Information 1 drop QID XX ; Start 10/03/17 at 09:00; Status UNV Naproxen (Naprosyn) 375 mg BID PRN PO PAIN; Start 10/03/17 at 01:30 Diagnostic Test (Pha) (Accu-Chek) 1 ea 02 XX Last administered on 10/08/17 01: 45; Admin Dose 1 EA; Start 10/03/17 at 02:00 Acetaminophen/ Hydrocodone Bitart ([place] (7.5-325)) 1 tab Q6H PRN PO PAIN Last administered on 10/08/17 12:26; Admin Dose 1 TAB; Start 10/03/17 at 03:00 Atorvastatin Calcium (Lipitor) 20 mg DAILY@21 PO Last administered on 20:06; Admin Dose 20 MG; Start 10/04/17 at 21:00 Miscellaneous Information MEDICATION REQUIRES CLARIFICATION: Q8H XX ; Start 10/06/17 at 07:30 Ceftriaxone Sodium (Rocephin) 50 ml @ 100 mls/hr Q24H IVPB Last administered on 10/08/17 17:43; Admin Dose 100 MLS/HR; Start 10/07/17 at 18:30 Insulin Glargine (Lantus) 20 unit QHS SC ; Start 11/8/17 at 21:00 Diagnostic Test (Pha) (Accu-Chek) 1 ea 02 XX ; Start 10/09/17 at 02:00 Miscellaneous Information 1 ea NOTE XX ; Start 10/08/17 at 13:30 Glucose (Glutose) 15 gm Q15M PRN PO DECREASED GLUCOSE; Start 10/08/17 at 13:30 Glucose (Glutose) 22.5 gm Q15M PRN PO DECREASED GLUCOSE; Start 10/08/17 at 13: 30 Dextrose (D50w Syringe) 25 ml Q15M PRN IV DECREASED GLUCOSE; Start 10/08/17 at 13:30 Dextrose (D50w Syringe) 50 ml Q15M PRN IV DECREASED GLUCOSE; Start 10/08/17 at 13:30 Glucagon (Glucagen) 1 mg Q15M PRN IM DECREASED GLUCOSE; Start 10/08/17 at 13:30 Glucose (Glutose) 15 gm Q15M PRN BUCCAL DECREASED GLUCOSE; Start 10/08/17 at 13 :30 ROGERS SALAZAR MD Oct 08, 2017 19:08
--- NOTE | 2017-10-08 19:34 | CONS ---
Date/Time of Note Date/Time of Note DATE: 10/08/17 TIME: 19:31 Assessment/Plan Assessment/Plan Chief Complaint/Hosp Course IMPRESSION: 1. Chest pain, likely secondary to rib fracture, rule out acute coronary syndrome.-neg trop x 3/NL EF by echo but borderline severe 2. Abnormal electrocardiogram with nonspecific ST-T abnormalities, assess for acute coronary syndrome. 3. Shortness of breath, assess for congestive heart failure. 4. Hypertension, under reasonable control. 5. Bradycardia, mild with stable blood pressure. 6. Diabetes mellitus. 7. Status post fall, rule out cardiac etiology. Rule out cardiac arrhythmia. 8. -borderline severe Recc: -Tele -continue norvasc -Continue asa/statin -Continue ranexa -Continue lasix/metolazone -will require further work up of , likely can be done as outpatient - Problems: Consultation Date/Type/Reason Admit Date/Time Oct 02, 2017 at 22:30 Initial Consult Date 10/03/2017 Type of Consultation: cardiology Reason for Consultation chest pain Referring Provider: ROGERS SALAZAR MD Exam/Review of Systems Vital Signs Vitals Vital Signs Date Time Temp Pulse Resp B/P Pulse Ox O2 Delivery O2 Flow Rate FiO2 10/08/17 16:49 64 10/08/17 15:50 98.2 17 144/64 95 10/08/17 14:35 Nasal Cannula 3.0 Intake and Output 10/07/17 10/07/17 10/08/17 15:00 23:00 07:00 Intake Total 650 ml 500 ml Balance 650 ml 500 ml Exam Review of Systems: CONSTITUTIONAL: No fevers, chills. PULMONARY: No sob CARDIOVASCULAR:ongoing chest pain GASTROINTESTINAL: No nausea/vomiting. GENITOURINARY: No hematuria/dysuria. MUSCULOSKELETAL: No myagias/arthalgias. PSYCHIATRIC: The patient denies depression. NEUROLOGIC: No weakness Constitutional: alert, oriented Psych: no complaints Head: normocephalic ENMT: mucosa pink and moist Neck: jvd (8-9 cm water), supple Respiratory: clear to auscultation Cardiovascular: regular rate and rhythm Gastrointestinal: non-tender, soft Musculoskeletal: muscle weakness (mild generalized) Extremities: edema (none) Neurological: other (No focal deficits) Results Result Diagram: 10/08/17 0753 10/08/17 0753 Results 24 hrs Laboratory Tests Test 10/07/17 21:06 10/08/17 01:44 10/08/17 07:53 10/08/17 08:12 Bedside Glucose 219 216 227 H White Blood Count 6.8 Red Blood Count 3.74 L Hemoglobin 11.2 L Hematocrit 34.1 L Mean Corpuscular Volume 91.2 Mean Corpuscular Hemoglobin 29.9 Mean Corpuscular Hemoglobin Concent 32.8 Red Cell Distribution Width 11.7 Platelet Count 230 Mean Platelet Volume 10.2 Neutrophils % 55.0 Lymphocytes % 24.7 Monocytes % 15.6 H Eosinophils % 3.8 Basophils % 0.6 Nucleated Red Blood Cells % 0.0 Neutrophils # 3.8 Lymphocytes # 1.7 Monocytes # 1.1 H Eosinophils # 0.3 Basophils # 0.0 Nucleated Red Blood Cells # 0.0 Sodium Level 137 Potassium Level 3.5 Chloride Level 95 L Carbon Dioxide Level 35 H Anion Gap 11 Blood Urea Nitrogen 38 H Creatinine 1.32 H Glucose Level 203 Calcium Level 9.8 Total Bilirubin 0.2 Direct Bilirubin 0.00 Indirect Bilirubin 0.2 Aspartate Amino Transf (AST/SGOT) 25 Alanine Aminotransferase (ALT/SGPT) 29 Alkaline Phosphatase 73 Total Protein 6.9 Albumin 3.3 Globulin 3.60 H Albumin/Globulin Ratio 0.91 Test 10/08/17 12:29 10/08/17 17:20 Bedside Glucose 312 H 268 H Medications Medications Current Medications Acetaminophen (Tylenol Tab) 650 mg Q6H PRN PO PAIN AND OR ELEVATED TEMP; Start 10/03/17 at 01:30 Morphine Sulfate (morphine) 2 mg Q4H PRN IV PAIN Last administered on 08:27; Admin Dose 2 MG; Start 10/03/17 at 01:30 Ondansetron HCl (Zofran Inj) 4 mg Q6H PRN IV NAUSEA AND/OR VOMITING Last administered on 10/03/17 02:32; Admin Dose 4 MG; Start 10/03/17 at 01:30 Amitriptyline HCl (Elavil) 10 mg DAILY PO Last administered on 10/08/17 08:22 ; Admin Dose 10 MG; Start 10/03/17 at 09:00 Amlodipine Besylate (Norvasc) 10 mg DAILY PO Last administered on 10/08/17 08: 22; Admin Dose 10 MG; Start 10/03/17 at 09:00 Aspirin (Halfprin) 81 mg DAILY PO Last administered on 10/08/17 08:22; Admin Dose 81 MG; Start 10/03/17 at 09:00 Calcium Carbonate (Oyster Shell Calcium) 1.25 gm BID PO Last administered on 08:22; Admin Dose 1.25 GM; Start 10/03/17 at 09:00 Docusate Sodium (Colace) 100 mg QID PO Last administered on 10/08/17 17:35; Admin Dose 100 MG; Start 10/03/17 at 09:00 Folic Acid (Folic Acid) 1 mg DAILY PO Last administered on 10/08/17 08:22; Admin Dose 1 MG; Start 10/03/17 at 09:00 Furosemide (Lasix) 20 mg DAILY PO Last administered on 10/08/17 08:22; Admin Dose 20 MG; Start 10/03/17 at 09:00 Metolazone (Zaroxolyn) 2.5 mg DAILY PO Last administered on 10/08/17 08:22; Admin Dose 2.5 MG; Start 10/03/17 at 09:00 Nystatin (Nystatin Cr) 1 applic BID TOP Last administered on 10/08/17 08:23; Admin Dose 1 APPLIC; Start 10/03/17 at 09:00 Pantoprazole (Protonix Tab) 40 mg DAILY@06 PO Last administered on 10/08/17 05 :46; Admin Dose 40 MG; Start 10/03/17 at 06:00 Ranolazine (Ranexa) 500 mg Q12 PO Last administered on 10/08/17 08:22; Admin Dose 500 MG; Start 10/03/17 at 09:00 Gabapentin (Neurontin) 100 mg TID PO Last administered on 10/08/17 12:27; Admin Dose 100 MG; Start 10/03/17 at 09:00 Miscellaneous Information 1 drop QID XX ; Start 10/03/17 at 09:00; Status UNV Naproxen (Naprosyn) 375 mg BID PRN PO PAIN; Start 10/03/17 at 01:30 Diagnostic Test (Pha) (Accu-Chek) 1 ea 02 XX Last administered on 10/08/17 01: 45; Admin Dose 1 EA; Start 10/03/17 at 02:00 Acetaminophen/ Hydrocodone Bitart ([place] (7.5-325)) 1 tab Q6H PRN PO PAIN Last administered on 10/08/17 12:26; Admin Dose 1 TAB; Start 10/03/17 at 03:00 Atorvastatin Calcium (Lipitor) 20 mg DAILY@21 PO Last administered on 20:06; Admin Dose 20 MG; Start 10/04/17 at 21:00 Miscellaneous Information MEDICATION REQUIRES CLARIFICATION: Q8H XX ; Start 10/06/17 at 07:30 Ceftriaxone Sodium (Rocephin) 50 ml @ 100 mls/hr Q24H IVPB Last administered on 10/08/17 17:43; Admin Dose 100 MLS/HR; Start 10/07/17 at 18:30 Insulin Glargine (Lantus) 20 unit QHS SC ; Start 10/08/17 at 21:00 Diagnostic Test (Pha) (Accu-Chek) 1 ea 02 XX ; Start 10/09/17 at 02:00 Miscellaneous Information 1 ea NOTE XX ; Start 10/08/17 at 13:30 Glucose (Glutose) 15 gm Q15M PRN PO DECREASED GLUCOSE; Start 10/08/17 at 13:30 Glucose (Glutose) 22.5 gm Q15M PRN PO DECREASED GLUCOSE; Start 10/08/17 at 13: 30 Dextrose (D50w Syringe) 25 ml Q15M PRN IV DECREASED GLUCOSE; Start 10/08/17 at 13:30 Dextrose (D50w Syringe) 50 ml Q15M PRN IV DECREASED GLUCOSE; Start 10/08/17 at 13:30 Glucagon (Glucagen) 1 mg Q15M PRN IM DECREASED GLUCOSE; Start 10/08/17 at 13:30 Glucose (Glutose) 15 gm Q15M PRN BUCCAL DECREASED GLUCOSE; Start 10/08/17 at 13 :30 ALMAZ TITUS Oct 08, 2017 19:34
[2017-10-08] MEDS: ATORVASTATIN 20 MG TAB PO SCH (20:07)
[2017-10-08] MEDS: INSULIN GLARGINE [LANtus] 3 ML PEN SC SCH (20:11)
[2017-10-09] VITALS (12 sets, daily range): BP systolic 119–155; BP diastolic 53–70; PULSE 52–63; RESP 16–20
[2017-10-09] MEDS: ACCU-CHEK XX SCH ×2 (02:00)
[2017-10-09] MEDS: PANTOPRAZOLE (EC) 40 MG TAB PO SCH (05:23)
[2017-10-09] MEDS: morphine 2 MG INJ IV PRN (05:31)
[2017-10-09] MEDS: [UNRECOGNIZED DRUG - REMARK] XX SCH ×3 (07:30→23:30)
[2017-10-09] MEDS ORDERED: INSULIN ASPART [NOVOLOG] 3 ML PEN SC SCH ×2 (08:00→12:00)
[2017-10-09] MEDS: ALBUTEROL/IPRATROPIUM (NEB) 3 ML AMP HHN SCH ×3 (08:20→20:00)
[2017-10-09] MEDS: METOLAZONE 2.5 MG TAB PO SCH (08:33)
[2017-10-09] MEDS: FOLIC ACID 1 MG TAB PO SCH (08:34)
[2017-10-09] MEDS: HYDROCODONE/APAP (7.5/325) TAB PO PRN ×2 (08:34→22:32)
[2017-10-09] MEDS: ASPIRIN (EC) 81 MG TAB PO SCH (08:34)
[2017-10-09] MEDS: RANOLAZINE (SR) 500 MG TAB PO SCH ×2 (08:34→20:50)
[2017-10-09] MEDS: AMLODIPINE 10 MG TAB PO SCH (08:34)
[2017-10-09] MEDS: CALCIUM CARBONATE 1.25 GM TAB PO SCH ×2 (08:34→20:50)
[2017-10-09] MEDS: AMITRIPTYLINE 10 MG TAB PO SCH (08:34)
[2017-10-09] MEDS: GABAPENTIN 100 MG CAP PO SCH ×3 (08:34→20:50)
[2017-10-09] MEDS: DOCUSATE SODIUM 100 MG CAP PO SCH ×4 (08:34→20:50)
[2017-10-09] MEDS: FUROSEMIDE 20 MG TAB PO SCH (08:34)
[2017-10-09] MEDS: NYSTATIN 15 GM CR TOP SCH ×2 (08:35→21:00)
[2017-10-09] MEDS: INSULIN ASPART [NOVOLOG] 3 ML PEN SC SCH ×5 (08:38→20:53)
[2017-10-09] MEDS ORDERED: BISACODYL (EC) 5 MG TAB PO PRN (14:30)
[2017-10-09] MEDS: POLYETHYLENE GLYCOL 17 GM PACKET PO SCH (14:45)
[2017-10-09] MEDS: CEFTRIAXONE 1 GM/50 ML (PMX) 50 ML IVPB SCH (17:13)
--- NOTE | 2017-10-09 20:40 | CONS ---
Date/Time of Note Date/Time of Note DATE: 10/09/17 TIME: 20:37 Assessment/Plan Assessment/Plan Chief Complaint/Hosp Course IMPRESSION: 1. Chest pain, likely secondary to rib fracture, rule out acute coronary syndrome.-neg trop x 3/NL EF by echo but borderline severe 2. Abnormal electrocardiogram with nonspecific ST-T abnormalities, assess for acute coronary syndrome. 3. Shortness of breath, assess for congestive heart failure. 4. Hypertension, under reasonable control. 5. Bradycardia, mild with stable blood pressure. 6. Diabetes mellitus. 7. Status post fall, rule out cardiac etiology. Rule out cardiac arrhythmia. 8. -borderline severe Recc: -Tele -continue norvasc -Continue asa/statin -Continue ranexa -Continue lasix/metolazone -will require further work up of , likely can be done as outpatient Problems: Consultation Date/Type/Reason Admit Date/Time Oct 02, 2017 at 22:30 Initial Consult Date 10/03/2017 Type of Consultation: cardiology Reason for Consultation chest pain Referring Provider: ROGERS SALAZAR MD Exam/Review of Systems Vital Signs Vitals Vital Signs Date Time Temp Pulse Resp B/P Pulse Ox O2 Delivery O2 Flow Rate FiO2 10/09/17 20:20 60 10/09/17 20:04 2.0 10/09/17 20:02 18 95 Nasal Cannula 10/09/17 20:00 98.7 146/59 Intake and Output 10/08/17 10/08/17 10/09/17 15:00 23:00 07:00 Intake Total 600 ml Balance 600 ml Exam Review of Systems: CONSTITUTIONAL: No fevers, chills. PULMONARY: No sob CARDIOVASCULAR: No chest pain/palpitations GASTROINTESTINAL: No nausea/vomiting. GENITOURINARY: No hematuria/dysuria. MUSCULOSKELETAL: No myagias/arthalgias. PSYCHIATRIC: The patient denies depression. NEUROLOGIC: No weakness Constitutional: alert Psych: no complaints Head: normocephalic ENMT: mucosa pink and moist Neck: jvd (9 cm water), supple Respiratory: diminished breath sounds (at bases/B) Cardiovascular: regular rate and rhythm Gastrointestinal: non-tender, soft Musculoskeletal: muscle tone (normal) Extremities: edema (none) Neurological: other (No focal deficits) Results Result Diagram: 10/08/17 0753 10/08/17 0753 Results 24 hrs Laboratory Tests Test 10/09/17 01:49 10/09/17 07:56 10/09/17 11:59 10/09/17 17:12 Bedside Glucose 176 208 310 H 221 H Medications Medications Current Medications Acetaminophen (Tylenol Tab) 650 mg Q6H PRN PO PAIN AND OR ELEVATED TEMP; Start 10/03/17 at 01:30 Morphine Sulfate (morphine) 2 mg Q4H PRN IV PAIN Last administered on 05:31; Admin Dose 2 MG; Start 10/03/17 at 01:30 Ondansetron HCl (Zofran Inj) 4 mg Q6H PRN IV NAUSEA AND/OR VOMITING Last administered on 10/03/17 02:32; Admin Dose 4 MG; Start 10/03/17 at 01:30 Amitriptyline HCl (Elavil) 10 mg DAILY PO Last administered on 10/09/17 08:34 ; Admin Dose 10 MG; Start 10/03/17 at 09:00 Amlodipine Besylate (Norvasc) 10 mg DAILY PO Last administered on 10/09/17 08: 34; Admin Dose 10 MG; Start 10/03/17 at 09:00 Aspirin (Halfprin) 81 mg DAILY PO Last administered on 10/09/17 08:34; Admin Dose 81 MG; Start 10/03/17 at 09:00 Calcium Carbonate (Oyster Shell Calcium) 1.25 gm BID PO Last administered on 08:34; Admin Dose 1.25 GM; Start 10/03/17 at 09:00 Docusate Sodium (Colace) 100 mg QID PO Last administered on 10/09/17 16:50; Admin Dose 100 MG; Start 10/03/17 at 09:00 Folic Acid (Folic Acid) 1 mg DAILY PO Last administered on 10/09/17 08:34; Admin Dose 1 MG; Start 10/03/17 at 09:00 Furosemide (Lasix) 20 mg DAILY PO Last administered on 10/09/17 08:34; Admin Dose 20 MG; Start 10/03/17 at 09:00 Metolazone (Zaroxolyn) 2.5 mg DAILY PO Last administered on 10/09/17 08:33; Admin Dose 2.5 MG; Start 10/03/17 at 09:00 Nystatin (Nystatin Cr) 1 applic BID TOP Last administered on 10/09/17 08:35; Admin Dose 1 APPLIC; Start 10/03/17 at 09:00 Pantoprazole (Protonix Tab) 40 mg DAILY@06 PO Last administered on 10/09/17 05 :23; Admin Dose 40 MG; Start 10/03/17 at 06:00 Ranolazine (Ranexa) 500 mg Q12 PO Last administered on 10/09/17 08:34; Admin Dose 500 MG; Start 10/03/17 at 09:00 Gabapentin (Neurontin) 100 mg TID PO Last administered on 10/09/17 12:02; Admin Dose 100 MG; Start 10/03/17 at 09:00 Miscellaneous Information 1 drop QID XX ; Start 10/03/17 at 09:00; Status UNV Naproxen (Naprosyn) 375 mg BID PRN PO PAIN; Start 10/03/17 at 01:30 Acetaminophen/ Hydrocodone Bitart ([place] (7.5-325)) 1 tab Q6H PRN PO PAIN Last administered on 10/09/17 08:34; Admin Dose 1 TAB; Start 10/03/17 at 03:00 Atorvastatin Calcium (Lipitor) 20 mg DAILY@21 PO Last administered on 20:07; Admin Dose 20 MG; Start 10/04/17 at 21:00 Miscellaneous Information MEDICATION REQUIRES CLARIFICATION: Q8H XX ; Start 10/06/17 at 07:30 Ceftriaxone Sodium (Rocephin) 50 ml @ 100 mls/hr Q24H IVPB Last administered on 10/09/17 17:13; Admin Dose 100 MLS/HR; Start 10/07/17 at 18:30 Insulin Glargine (Lantus) 20 unit QHS SC Last administered on 10/08/17 20:11; Admin Dose 20 UNIT; Start 10/08/17 at 21:00 Diagnostic Test (Pha) (Accu-Chek) 1 ea 02 XX ; Start 10/09/17 at 02:00 Miscellaneous Information 1 ea NOTE XX ; Start 10/08/17 at 13:30 Glucose (Glutose) 15 gm Q15M PRN PO DECREASED GLUCOSE; Start 10/08/17 at 13:30 Glucose (Glutose) 22.5 gm Q15M PRN PO DECREASED GLUCOSE; Start 10/08/17 at 13: 30 Dextrose (D50w Syringe) 25 ml Q15M PRN IV DECREASED GLUCOSE; Start 10/08/17 at 13:30 Dextrose (D50w Syringe) 50 ml Q15M PRN IV DECREASED GLUCOSE; Start 10/08/17 at 13:30 Glucagon (Glucagen) 1 mg Q15M PRN IM DECREASED GLUCOSE; Start 10/08/17 at 13:30 Glucose (Glutose) 15 gm Q15M PRN BUCCAL DECREASED GLUCOSE; Start 10/08/17 at 13 :30 Bisacodyl (Dulcolax) 10 mg BID PRN PO CONSTIPATION; Start 10/09/17 at 14:30 Polyethylene Glycol (Miralax) 17 gm DAILY PO Last administered on 10/09/17t 14: 45; Admin Dose 17 GM; Start 10/09/17 at 14:30 ALMAZ TITUS Oct 09, 2017 20:40
[2017-10-09] MEDS: ATORVASTATIN 20 MG TAB PO SCH (20:50)
[2017-10-09] MEDS: INSULIN GLARGINE [LANtus] 3 ML PEN SC SCH (20:53)
[2017-10-10] VITALS (11 sets, daily range): BP systolic 127–163; BP diastolic 55–70; PULSE 53–61; RESP 16–18
[2017-10-10] MEDS: ACCU-CHEK XX SCH (02:00)
[2017-10-10] MEDS: HYDROCODONE/APAP (7.5/325) TAB PO PRN ×2 (06:25→23:00)
[2017-10-10] MEDS: PANTOPRAZOLE (EC) 40 MG TAB PO SCH (06:25)
[2017-10-10] MEDS: [UNRECOGNIZED DRUG - REMARK] XX SCH ×3 (07:30→23:30)
[2017-10-10] MEDS: AMITRIPTYLINE 10 MG TAB PO SCH (08:15)
[2017-10-10] MEDS: ASPIRIN (EC) 81 MG TAB PO SCH (08:15)
[2017-10-10] MEDS: METOLAZONE 2.5 MG TAB PO SCH (08:15)
[2017-10-10] MEDS: FUROSEMIDE 20 MG TAB PO SCH (08:15)
[2017-10-10] MEDS: DOCUSATE SODIUM 100 MG CAP PO SCH ×4 (08:15→20:39)
[2017-10-10] MEDS: FOLIC ACID 1 MG TAB PO SCH (08:15)
[2017-10-10] MEDS: CALCIUM CARBONATE 1.25 GM TAB PO SCH ×2 (08:15→20:40)
[2017-10-10] MEDS: GABAPENTIN 100 MG CAP PO SCH ×3 (08:15→20:40)
[2017-10-10] MEDS: AMLODIPINE 10 MG TAB PO SCH (08:16)
[2017-10-10] MEDS: POLYETHYLENE GLYCOL 17 GM PACKET PO SCH (08:16)
[2017-10-10] MEDS: NYSTATIN 15 GM CR TOP SCH ×2 (08:17→21:00)
[2017-10-10] MEDS: INSULIN ASPART [NOVOLOG] 3 ML PEN SC SCH ×7 (08:21→20:42)
[2017-10-10] MEDS: RANOLAZINE (SR) 500 MG TAB PO SCH ×2 (08:23→20:39)
[2017-10-10] MEDS: ALBUTEROL/IPRATROPIUM (NEB) 3 ML AMP HHN SCH ×3 (08:59→20:33)
--- NOTE | 2017-10-10 11:43 | PN ---
Date/Time of Note Date/Time of Note DATE: 10/10/17 TIME: 11:42 Assessment/Plan VTE Prophylaxis VTE Prophylaxis Intervention: SCD's Lines/Catheters IV Catheter Type (from Nrs): [facility] Urinary Cath still in place: No Assessment/Plan Chief Complaint/Hosp Course 1. S/p fall with acute right rib fractures of 5, 6, 7 2. Hypertension controlled 3. Morbid obesity 4. Multilevel degenerative spondylosis of the thoracic spine. 5. Dm type II, controlled 6. Anemia 7. dyslipidemia Problems: Assessment/Plan 1. better Dm control 2. Start PT Subjective 24 Hr Interval Summary Musculoskeletal: back pain, restricted range of motion Exam/Review of Systems Vital Signs Vitals Vital Signs Date Time Temp Pulse Resp B/P Pulse Ox O2 Delivery O2 Flow Rate FiO2 10/10/17 08:59 54 18 95 Nasal Cannula 2.0 10/10/17 07:38 98.4 148/55 Intake and Output 10/09/17 10/09/17 10/10/17 15:00 23:00 07:00 Intake Total 1010 ml Balance 1010 ml Exam Constitutional: alert, oriented Respiratory: diminished breath sounds Cardiovascular: regular rate and rhythm Gastrointestinal: soft Results Result Diagram: 10/08/17 0753 10/08/17 0753 Results 24 hrs Laboratory Tests Test 10/09/17 11:59 10/09/17 17:12 10/09/17 20:49 10/10/17 02:28 Bedside Glucose 310 H 221 H 206 193 Test 10/10/17 08:13 Bedside Glucose 207 Medications Medications Current Medications Acetaminophen (Tylenol Tab) 650 mg Q6H PRN PO PAIN AND OR ELEVATED TEMP; Start 10/03/17 at 01:30 Morphine Sulfate (morphine) 2 mg Q4H PRN IV PAIN Last administered on 05:31; Admin Dose 2 MG; Start 10/03/17 at 01:30 Ondansetron HCl (Zofran Inj) 4 mg Q6H PRN IV NAUSEA AND/OR VOMITING Last administered on 10/03/17 02:32; Admin Dose 4 MG; Start 10/03/17 at 01:30 Amitriptyline HCl (Elavil) 10 mg DAILY PO Last administered on 10/10/17 08:15 ; Admin Dose 10 MG; Start 10/03/17 at 09:00 Amlodipine Besylate (Norvasc) 10 mg DAILY PO Last administered on 10/10/17 08 :16; Admin Dose 10 MG; Start 10/03/17 at 09:00 Aspirin (Halfprin) 81 mg DAILY PO Last administered on 10/10/17 08:15; Admin Dose 81 MG; Start 10/03/17 at 09:00 Calcium Carbonate (Oyster Shell Calcium) 1.25 gm BID PO Last administered on 08:15; Admin Dose 1.25 GM; Start 10/03/17 at 09:00 Docusate Sodium (Colace) 100 mg QID PO Last administered on 10/10/17 08:15; Admin Dose 100 MG; Start 10/03/17 at 09:00 Folic Acid (Folic Acid) 1 mg DAILY PO Last administered on 10/10/17 08:15; Admin Dose 1 MG; Start 10/03/17 at 09:00 Furosemide (Lasix) 20 mg DAILY PO Last administered on 10/10/17 08:15; Admin Dose 20 MG; Start 10/03/17 at 09:00 Metolazone (Zaroxolyn) 2.5 mg DAILY PO Last administered on 10/10/17 08:15; Admin Dose 2.5 MG; Start 10/03/17 at 09:00 Nystatin (Nystatin Cr) 1 applic BID TOP Last administered on 10/10/17 08:17; Admin Dose 1 APPLIC; Start 10/03/17 at 09:00 Pantoprazole (Protonix Tab) 40 mg DAILY@06 PO Last administered on 10/10/17 06:25; Admin Dose 40 MG; Start 10/03/17 at 06:00 Ranolazine (Ranexa) 500 mg Q12 PO Last administered on 10/10/17 08:23; Admin Dose 500 MG; Start 10/03/17 at 09:00 Gabapentin (Neurontin) 100 mg TID PO Last administered on 10/10/17 08:15; Admin Dose 100 MG; Start 10/03/17 at 09:00 Miscellaneous Information 1 drop QID XX ; Start 10/03/17 at 09:00; Status UNV Naproxen (Naprosyn) 375 mg BID PRN PO PAIN; Start 10/03/17 at 01:30 Acetaminophen/ Hydrocodone Bitart ([place] (7.5325)) 1 tab Q6H PRN PO PAIN Last administered on 10/10/17 06:25; Admin Dose 1 TAB; Start 10/03/17 at 03:00 Atorvastatin Calcium (Lipitor) 20 mg DAILY@21 PO Last administered on 20:50; Admin Dose 20 MG; Start 10/04/17 at 21:00 Miscellaneous Information MEDICATION REQUIRES CLARIFICATION: Q8H XX ; Start 10/06/17 at 07:30 Ceftriaxone Sodium (Rocephin) 50 ml @ 100 mls/hr Q24H IVPB Last administered on 10/09/17 17:13; Admin Dose 100 MLS/HR; Start 10/07/17 at 18:30 Insulin Glargine (Lantus) 20 unit QHS SC Last administered on 10/09/17 20:53; Admin Dose 20 UNIT; Start 10/08/17 at 21:00 Diagnostic Test (Pha) (Accu-Chek) 1 ea 02 XX ; Start 10/09/17 at 02:00 Miscellaneous Information 1 ea NOTE XX ; Start 10/08/17 at 13:30 Glucose (Glutose) 15 gm Q15M PRN PO DECREASED GLUCOSE; Start 10/08/17 at 13:30 Glucose (Glutose) 22.5 gm Q15M PRN PO DECREASED GLUCOSE; Start 10/08/17 at 13: 30 Dextrose (D50w Syringe) 25 ml Q15M PRN IV DECREASED GLUCOSE; Start 10/08/17 at 13:30 Dextrose (D50w Syringe) 50 ml Q15M PRN IV DECREASED GLUCOSE; Start 10/08/17 at 13:30 Glucagon (Glucagen) 1 mg Q15M PRN IM DECREASED GLUCOSE; Start 10/08/17 at 13:30 Glucose (Glutose) 15 gm Q15M PRN BUCCAL DECREASED GLUCOSE; Start 10/08/17 at 13 :30 Bisacodyl (Dulcolax) 10 mg BID PRN PO CONSTIPATION; Start 10/09/17 at 14:30 Polyethylene Glycol (Miralax) 17 gm DAILY PO Last administered on 10/10/17 08 :16; Admin Dose 17 GM; Start 10/09/17 at 14:30 PATRICIA CALVERT Oct 10, 2017 11:43
--- NOTE | 2017-10-10 14:49 | CONS ---
Date/Time of Note Date/Time of Note DATE: 10/10/17 TIME: 14:48 Assessment/Plan Assessment/Plan Additional Assessment/Plan 1. Chest pain, likely secondary to rib fracture, rule out acute coronary syndrome.-neg trop x 3/NL EF by echo but borderline severe - no CP now, med RX advised. STABLE. 2. Abnormal electrocardiogram with nonspecific ST-T abnormalities, assess for acute coronary syndrome- no CP now. 3. Shortness of breath, assess for congestive heart failure - stable fluid status by exam. IMPROVED. 4. Hypertension, under reasonable control- isacc Rx medically as indicated. 5. Bradycardia, mild with stable blood pressure. NO indication for pacer now. 6. Diabetes mellitus. 7. Status post fall, rule out cardiac etiology. Rule out cardiac arrhythmia. 8. -borderline severe Consultation Date/Type/Reason Admit Date/Time Oct 02, 2017 at 22:30 Type of Consultation: cardiology Referring Provider: ROGERS SALAZAR MD 24 HR Interval Summary Free Text/Dictation NO acute events - no significant ectopy on tele - keep euvolemic. ROS: No fever, no chills, no nausea, no vomiting, no diarrhea/constipation No recent weight changes No chest pain, no PND, no orthopnea No dizziness, blurred vision No thirst, no heat or cold intolerance Exam/Review of Systems Vital Signs Vitals Vital Signs Date Time Temp Pulse Resp B/P Pulse Ox O2 Delivery O2 Flow Rate FiO2 10/10/17 12:32 98.2 59 17 127/61 94 10/10/17 12:00 Nasal Cannula 10/10/17 08:59 2.0 Intake and Output 10/09/17 10/09/17 10/10/17 14:59 22:59 06:59 Intake Total 1010 ml Balance 1010 ml Exam General: WN/WD/NAD, AOx 2-3 HEENT: Unicetric/atraumatic/EOMI (follows commands) NECK: JVD elevated, no thyromegaly Lymph: no lymphadenopathy HEART: regular with no S3, II/ systolic murmur at apex LUNGS: Coarse sounds ABD: soft, NT, ND, +BS : Intact Neuro: non focal SKIN: chronic changes EXT: trace edema Results Result Diagram: 10/08/17 0753 10/08/17 0753 Results 24 hrs Laboratory Tests Test 10/09/17 17:12 10/09/17 20:49 10/10/17 02:28 10/10/17 08:13 Bedside Glucose 221 H 206 193 207 Test 10/10/17 11:58 Bedside Glucose 266 H Medications Medications Current Medications Acetaminophen (Tylenol Tab) 650 mg Q6H PRN PO PAIN AND OR ELEVATED TEMP; Start 10/03/17 at 01:30 Morphine Sulfate (morphine) 2 mg Q4H PRN IV PAIN Last administered on 05:31; Admin Dose 2 MG; Start 10/03/17 at 01:30 Ondansetron HCl (Zofran Inj) 4 mg Q6H PRN IV NAUSEA AND/OR VOMITING Last administered on 10/03/17 02:32; Admin Dose 4 MG; Start 10/03/17 at 01:30 Amitriptyline HCl (Elavil) 10 mg DAILY PO Last administered on 10/10/17 08:15 ; Admin Dose 10 MG; Start 10/03/17 at 09:00 Amlodipine Besylate (Norvasc) 10 mg DAILY PO Last administered on 10/10/17 08 :16; Admin Dose 10 MG; Start 10/03/17 at 09:00 Aspirin (Halfprin) 81 mg DAILY PO Last administered on 10/10/17 08:15; Admin Dose 81 MG; Start 10/03/17 at 09:00 Calcium Carbonate (Oyster Shell Calcium) 1.25 gm BID PO Last administered on 08:15; Admin Dose 1.25 GM; Start 10/03/17 at 09:00 Docusate Sodium (Colace) 100 mg QID PO Last administered on 10/10/17 12:29; Admin Dose 100 MG; Start 10/03/17 at 09:00 Folic Acid (Folic Acid) 1 mg DAILY PO Last administered on 10/10/17 08:15; Admin Dose 1 MG; Start 10/03/17 at 09:00 Furosemide (Lasix) 20 mg DAILY PO Last administered on 10/10/17 08:15; Admin Dose 20 MG; Start 10/03/17 at 09:00 Metolazone (Zaroxolyn) 2.5 mg DAILY PO Last administered on 10/10/17 08:15; Admin Dose 2.5 MG; Start 10/03/17 at 09:00 Nystatin (Nystatin Cr) 1 applic BID TOP Last administered on 10/10/17 08:17; Admin Dose 1 APPLIC; Start 10/03/17 at 09:00 Pantoprazole (Protonix Tab) 40 mg DAILY@06 PO Last administered on 10/10/17 06:25; Admin Dose 40 MG; Start 10/03/17 at 06:00 Ranolazine (Ranexa) 500 mg Q12 PO Last administered on 10/10/17 08:23; Admin Dose 500 MG; Start 10/03/17 at 09:00 Gabapentin (Neurontin) 100 mg TID PO Last administered on 10/10/17 12:29; Admin Dose 100 MG; Start 10/03/17 at 09:00 Miscellaneous Information 1 drop QID XX ; Start 10/03/17 at 09:00; Status UNV Naproxen (Naprosyn) 375 mg BID PRN PO PAIN; Start 10/03/17 at 01:30 Acetaminophen/ Hydrocodone Bitart ([place] (7.5-325)) 1 tab Q6H PRN PO PAIN Last administered on 10/10/17 06:25; Admin Dose 1 TAB; Start 10/03/17 at 03:00 Atorvastatin Calcium (Lipitor) 20 mg DAILY@21 PO Last administered on 20:50; Admin Dose 20 MG; Start 10/04/17 at 21:00 Miscellaneous Information MEDICATION REQUIRES CLARIFICATION: Q8H XX ; Start 10/06/17 at 07:30 Ceftriaxone Sodium (Rocephin) 50 ml @ 100 mls/hr Q24H IVPB Last administered on 10/09/17 17:13; Admin Dose 100 MLS/HR; Start 10/07/17 at 18:30 Diagnostic Test (Pha) (Accu-Chek) 1 ea 02 XX ; Start 10/09/17 at 02:00 Miscellaneous Information 1 ea NOTE XX ; Start 10/08/17 at 13:30 Glucose (Glutose) 15 gm Q15M PRN PO DECREASED GLUCOSE; Start 10/08/17 at 13:30 Glucose (Glutose) 22.5 gm Q15M PRN PO DECREASED GLUCOSE; Start 10/08/17 at 13: 30 Dextrose (D50w Syringe) 25 ml Q15M PRN IV DECREASED GLUCOSE; Start 10/08/17 at 13:30 Dextrose (D50w Syringe) 50 ml Q15M PRN IV DECREASED GLUCOSE; Start 10/08/17 at 13:30 Glucagon (Glucagen) 1 mg Q15M PRN IM DECREASED GLUCOSE; Start 10/08/17 at 13:30 Glucose (Glutose) 15 gm Q15M PRN BUCCAL DECREASED GLUCOSE; Start 10/08/17 at 13 :30 Bisacodyl (Dulcolax) 10 mg BID PRN PO CONSTIPATION; Start 10/09/17 at 14:30 Polyethylene Glycol (Miralax) 17 gm DAILY PO Last administered on 10/10/17t 08 :16; Admin Dose 17 GM; Start 10/09/17 at 14:30 Insulin Glargine (Lantus) 25 unit QHS SC ; Start 10/10/17 at 21:00 HAETH MUSA MD Oct 10, 2017 14:49
[2017-10-10] MEDS: CEFTRIAXONE 1 GM/50 ML (PMX) 50 ML IVPB SCH (17:33)
[2017-10-10] MEDS: ATORVASTATIN 20 MG TAB PO SCH (20:39)
[2017-10-10] MEDS ORDERED: INSULIN GLARGINE [LANtus] 3 ML PEN SC SCH (21:00)
[2017-10-11] VITALS (12 sets, daily range): BP systolic 118–170; BP diastolic 55–70; PULSE 50–65; RESP 16–18
[2017-10-11] MEDS: ACCU-CHEK XX SCH (02:00)
[2017-10-11] MEDS: PANTOPRAZOLE (EC) 40 MG TAB PO SCH (06:25)
[2017-10-11 06:52] LABS: CALCIUM 9.4 mg/dl (8.4-10.2); CREATININE 1.42 mg/dl (0.44-1.00); POTASSIUM 3.9 mmol/L (3.5-5.1)
[2017-10-11] MEDS: [UNRECOGNIZED DRUG - REMARK] XX SCH ×3 (07:30→23:30)
[2017-10-11] MEDS: ALBUTEROL/IPRATROPIUM (NEB) 3 ML AMP HHN SCH ×3 (08:36→19:50)
[2017-10-11] MEDS: INSULIN ASPART [NOVOLOG] 3 ML PEN SC SCH ×7 (08:45→21:03)
[2017-10-11] MEDS: POLYETHYLENE GLYCOL 17 GM PACKET PO SCH (09:14)
[2017-10-11] MEDS: DOCUSATE SODIUM 100 MG CAP PO SCH ×4 (09:15→21:04)
[2017-10-11] MEDS: AMLODIPINE 10 MG TAB PO SCH (09:15)
[2017-10-11] MEDS: ASPIRIN (EC) 81 MG TAB PO SCH (09:16)
[2017-10-11] MEDS: HYDROCODONE/APAP (7.5/325) TAB PO PRN (09:16)
[2017-10-11] MEDS: FUROSEMIDE 20 MG TAB PO SCH (09:16)
[2017-10-11] MEDS: CALCIUM CARBONATE 1.25 GM TAB PO SCH ×2 (09:16→21:04)
[2017-10-11] MEDS: GABAPENTIN 100 MG CAP PO SCH ×3 (09:16→21:04)
[2017-10-11] MEDS: AMITRIPTYLINE 10 MG TAB PO SCH (09:16)
[2017-10-11] MEDS: METOLAZONE 2.5 MG TAB PO SCH (09:16)
[2017-10-11] MEDS: FOLIC ACID 1 MG TAB PO SCH (09:18)
[2017-10-11] MEDS: RANOLAZINE (SR) 500 MG TAB PO SCH ×2 (09:18→21:04)
[2017-10-11] MEDS: NYSTATIN 15 GM CR TOP SCH ×2 (09:24→21:06)
--- NOTE | 2017-10-11 11:47 | PN ---
Date/Time of Note Date/Time of Note DATE: 10/11/17 TIME: 11:47 Assessment/Plan VTE Prophylaxis VTE Prophylaxis Intervention: anti-embolic stocking Lines/Catheters IV Catheter Type (from Nrsg): [facility] [facility] Urinary Cath still in place: No Assessment/Plan Chief Complaint/Hosp Course 1. S/p fall with acute right rib fractures of 5, 6, 7 2. Hypertension, controlled 3. Morbid obesity 4. Multilevel degenerative spondylosis of the thoracic spine. 5. Dm type II, uncontrolled 6. Anemia 7. dyslipidemia Problems: Assessment/Plan 1. Continue PT 2. better DM type II controll Subjective 24 Hr Interval Summary Musculoskeletal: back pain, bone/joint pain Exam/Review of Systems Vital Signs Vitals Vital Signs Date Time Temp Pulse Resp B/P Pulse Ox O2 Delivery O2 Flow Rate FiO2 10/11/17 08:36 60 20 98 Nasal Cannula 2.0 10/11/17 08:02 97.9 170/70 Intake and Output 10/10/17 10/10/17 10/11/17 15:00 23:00 07:00 Intake Total 950 ml 700 ml Balance 950 ml 700 ml Exam Constitutional: alert, oriented Results Result Diagram: 10/08/17 0753 10/11/17 0530 Results 24 hrs Laboratory Tests Test 10/10/17 11:58 10/10/17 17:03 10/10/17 20:37 10/11/17 03:11 Bedside Glucose 266 H 229 H 228 H 201 Test 10/11/17 05:30 10/11/17 07:58 Sodium Level 138 Potassium Level 3.9 Chloride Level 92 L Carbon Dioxide Level 39 H Anion Gap 11 Blood Urea Nitrogen 31 H Creatinine 1.42 H Glucose Level 198 Calcium Level 9.4 Bedside Glucose 235 H Medications Medications Current Medications Acetaminophen (Tylenol Tab) 650 mg Q6H PRN PO PAIN AND OR ELEVATED TEMP; Start 10/03/17 at 01:30 Morphine Sulfate (morphine) 2 mg Q4H PRN IV PAIN Last administered on 05:31; Admin Dose 2 MG; Start 10/03/17 at 01:30 Ondansetron HCl (Zofran Inj) 4 mg Q6H PRN IV NAUSEA AND/OR VOMITING Last administered on 10/03/17 02:32; Admin Dose 4 MG; Start 10/03/17 at 01:30 Amitriptyline HCl (Elavil) 10 mg DAILY PO Last administered on 10/11/17 09:16 ; Admin Dose 10 MG; Start 10/03/17 at 09:00 Amlodipine Besylate (Norvasc) 10 mg DAILY PO Last administered on 10/11/17 09 :15; Admin Dose 10 MG; Start 10/03/17 at 09:00 Aspirin (Halfprin) 81 mg DAILY PO Last administered on 10/11/17 09:16; Admin Dose 81 MG; Start 10/03/17 at 09:00 Calcium Carbonate (Oyster Shell Calcium) 1.25 gm BID PO Last administered on 09:16; Admin Dose 1.25 GM; Start 10/03/17 at 09:00 Docusate Sodium (Colace) 100 mg QID PO Last administered on 10/11/17 09:15; Admin Dose 100 MG; Start 10/03/17 at 09:00 Folic Acid (Folic Acid) 1 mg DAILY PO Last administered on 10/11/17 09:18; Admin Dose 1 MG; Start 10/03/17 at 09:00 Furosemide (Lasix) 20 mg DAILY PO Last administered on 10/11/17 09:16; Admin Dose 20 MG; Start 10/03/17 at 09:00 Metolazone (Zaroxolyn) 2.5 mg DAILY PO Last administered on 10/11/17 09:16; Admin Dose 2.5 MG; Start 10/03/17 at 09:00 Nystatin (Nystatin Cr) 1 applic BID TOP Last administered on 10/11/17 09:24; Admin Dose 1 APPLIC; Start 10/03/17 at 09:00 Pantoprazole (Protonix Tab) 40 mg DAILY@06 PO Last administered on 10/11/17 06:25; Admin Dose 40 MG; Start 10/03/17 at 06:00 Ranolazine (Ranexa) 500 mg Q12 PO Last administered on 10/11/17 09:18; Admin Dose 500 MG; Start 10/03/17 at 09:00 Gabapentin (Neurontin) 100 mg TID PO Last administered on 10/11/17 09:16; Admin Dose 100 MG; Start 10/03/17 at 09:00 Miscellaneous Information 1 drop QID XX ; Start 10/03/17 at 09:00; Status UNV Naproxen (Naprosyn) 375 mg BID PRN PO PAIN; Start 10/03/17 at 01:30 Acetaminophen/ Hydrocodone Bitart ([place] (7.5-325)) 1 tab Q6H PRN PO PAIN Last administered on 10/11/17 09:16; Admin Dose 1 TAB; Start 10/03/17 at 03:00 Atorvastatin Calcium (Lipitor) 20 mg DAILY@21 PO Last administered on 20:39; Admin Dose 20 MG; Start 10/04/17 at 21:00 Miscellaneous Information MEDICATION REQUIRES CLARIFICATION: Q8H XX ; Start 10/06/17 at 07:30 Ceftriaxone Sodium (Rocephin) 50 ml @ 100 mls/hr Q24H IVPB Last administered on 10/10/17 17:33; Admin Dose 100 MLS/HR; Start 10/07/17 at 18:30 Diagnostic Test (Pha) (Accu-Chek) 1 ea 02 XX ; Start 10/09/17 at 02:00 Miscellaneous Information 1 ea NOTE XX ; Start 10/08/17 at 13:30 Glucose (Glutose) 15 gm Q15M PRN PO DECREASED GLUCOSE; Start 10/08/17 at 13:30 Glucose (Glutose) 22.5 gm Q15M PRN PO DECREASED GLUCOSE; Start 10/08/17 at 13: 30 Dextrose (D50w Syringe) 25 ml Q15M PRN IV DECREASED GLUCOSE; Start 10/08/17 at 13:30 Dextrose (D50w Syringe) 50 ml Q15M PRN IV DECREASED GLUCOSE; Start 10/08/17 at 13:30 Glucagon (Glucagen) 1 mg Q15M PRN IM DECREASED GLUCOSE; Start 10/08/17 at 13:30 Glucose (Glutose) 15 gm Q15M PRN BUCCAL DECREASED GLUCOSE; Start 10/08/17 at 13 :30 Bisacodyl (Dulcolax) 10 mg BID PRN PO CONSTIPATION; Start 10/09/17 at 14:30 Polyethylene Glycol (Miralax) 17 gm DAILY PO Last administered on 10/11/17 09 :14; Admin Dose 17 GM; Start 10/09/17 at 14:30 Insulin Glargine (Lantus) 25 unit QHS SC Last administered on 10/10/17t 20:43 ; Admin Dose 25 UNIT; Start 10/10/17 at 21:00 PATRICIA CALVERT Oct 11, 2017 11:47
[2017-10-11] MEDS: LINAGLIPTIN 5 MG TABLET PO SCH (12:26)
--- NOTE | 2017-10-11 14:06 | CONS ---
Date/Time of Note Date/Time of Note DATE: 10/11/17 TIME: 14:04 Assessment/Plan Assessment/Plan Additional Assessment/Plan 1. Chest pain, likely secondary to rib fracture, rule out acute coronary syndrome.-neg trop x 3/NL EF by echo but borderline severe - no CP now, med RX advised. STABLE. 2. Abnormal electrocardiogram with nonspecific ST-T abnormalities, assess for acute coronary syndrome- no CP now. NO ECTOPY on TELE. 3. Shortness of breath, assess for congestive heart failure - stable fluid status by exam. IMPROVED. 4. Hypertension, under reasonable control- isacc Rx medically as indicated. BETTER NOW. 5. Bradycardia, mild with stable blood pressure. NO indication for pacer now. 6. Diabetes mellitus- on meds, keep euglycemic. 7. Status post fall, rule out cardiac etiology. Rule out cardiac arrhythmia. 8. -borderline severe Consultation Date/Type/Reason Admit Date/Time Oct 02, 2017 at 22:30 Type of Consultation: cardiology Referring Provider: ROGERS SALAZAR MD 24 HR Interval Summary Free Text/Dictation NO acute events - BP in good range - no CP now - will monitor. ROS: No fever, no chills, no nausea, no vomiting, no diarrhea/constipation No recent weight changes No chest pain, no PND, no orthopnea No dizziness, blurred vision No thirst, no heat or cold intolerance Exam/Review of Systems Vital Signs Vitals Vital Signs Date Time Temp Pulse Resp B/P Pulse Ox O2 Delivery O2 Flow Rate FiO2 10/11/17 12:37 51 10/11/17 11:52 97.8 17 145/67 96 10/11/17 08:36 Nasal Cannula 2.0 Intake and Output 10/10/17 10/10/17 10/11/17 15:00 23:00 07:00 Intake Total 950 ml 700 ml Balance 950 ml 700 ml Exam General: WN/WD/NAD, AOx 2-3 HEENT: Unicetric/atraumatic/EOMI (follows commands) NECK: JVD elevated, no thyromegaly Lymph: no lymphadenopathy HEART: regular with no S3, II/ systolic murmur at apex LUNGS: Coarse sounds ABD: soft, NT, ND, +BS : Intact Neuro: non focal SKIN: chronic changes EXT: trace edema Results Result Diagram: 10/08/17 0753 10/11/17 6930 Results 24 hrs Laboratory Tests Test 10/10/17 17:03 10/10/17 20:37 10/11/17 03:11 10/11/17 05:30 Bedside Glucose 229 H 228 H 201 Sodium Level 138 Potassium Level 3.9 Chloride Level 92 L Carbon Dioxide Level 39 H Anion Gap 11 Blood Urea Nitrogen 31 H Creatinine 1.42 H Glucose Level 198 Calcium Level 9.4 Test 10/11/17 07:58 10/11/17 12:04 Bedside Glucose 235 H 227 H Medications Medications Current Medications Acetaminophen (Tylenol Tab) 650 mg Q6H PRN PO PAIN AND OR ELEVATED TEMP; Start 10/03/17 at 01:30 Morphine Sulfate (morphine) 2 mg Q4H PRN IV PAIN Last administered on 05:31; Admin Dose 2 MG; Start 10/03/17 at 01:30 Ondansetron HCl (Zofran Inj) 4 mg Q6H PRN IV NAUSEA AND/OR VOMITING Last administered on 10/03/17 02:32; Admin Dose 4 MG; Start 10/03/17 at 01:30 Amitriptyline HCl (Elavil) 10 mg DAILY PO Last administered on 10/11/17 09:16 ; Admin Dose 10 MG; Start 10/03/17 at 09:00 Amlodipine Besylate (Norvasc) 10 mg DAILY PO Last administered on 10/11/17 09 :15; Admin Dose 10 MG; Start 10/03/17 at 09:00 Aspirin (Halfprin) 81 mg DAILY PO Last administered on 10/11/17 09:16; Admin Dose 81 MG; Start 10/03/17 at 09:00 Calcium Carbonate (Oyster Shell Calcium) 1.25 gm BID PO Last administered on 09:16; Admin Dose 1.25 GM; Start 10/03/17 at 09:00 Docusate Sodium (Colace) 100 mg QID PO Last administered on 10/11/17 12:26; Admin Dose 100 MG; Start 10/03/17 at 09:00 Folic Acid (Folic Acid) 1 mg DAILY PO Last administered on 10/11/17 09:18; Admin Dose 1 MG; Start 10/03/17 at 09:00 Furosemide (Lasix) 20 mg DAILY PO Last administered on 10/11/17 09:16; Admin Dose 20 MG; Start 10/03/17 at 09:00 Metolazone (Zaroxolyn) 2.5 mg DAILY PO Last administered on 10/11/17 09:16; Admin Dose 2.5 MG; Start 10/03/17 at 09:00 Nystatin (Nystatin Cr) 1 applic BID TOP Last administered on 10/11/17 09:24; Admin Dose 1 APPLIC; Start 10/03/17 at 09:00 Pantoprazole (Protonix Tab) 40 mg DAILY@06 PO Last administered on 10/11/17 06:25; Admin Dose 40 MG; Start 10/03/17 at 06:00 Ranolazine (Ranexa) 500 mg Q12 PO Last administered on 10/11/17 09:18; Admin Dose 500 MG; Start 10/03/17 at 09:00 Gabapentin (Neurontin) 100 mg TID PO Last administered on 10/11/17 12:26; Admin Dose 100 MG; Start 10/03/17 at 09:00 Miscellaneous Information 1 drop QID XX ; Start 10/03/17 at 09:00; Status UNV Naproxen (Naprosyn) 375 mg BID PRN PO PAIN; Start 10/03/17 at 01:30 Acetaminophen/ Hydrocodone Bitart ([place] (7.5-325)) 1 tab Q6H PRN PO PAIN Last administered on 10/11/17 09:16; Admin Dose 1 TAB; Start 10/03/17 at 03:00 Atorvastatin Calcium (Lipitor) 20 mg DAILY@21 PO Last administered on 20:39; Admin Dose 20 MG; Start 10/04/17 at 21:00 Miscellaneous Information MEDICATION REQUIRES CLARIFICATION: Q8H XX ; Start 10/06/17 at 07:30 Ceftriaxone Sodium (Rocephin) 50 ml @ 100 mls/hr Q24H IVPB Last administered on 10/10/17 17:33; Admin Dose 100 MLS/HR; Start 10/07/17 at 18:30 Diagnostic Test (Pha) (Accu-Chek) 1 ea 02 XX ; Start 10/09/17 at 02:00 Miscellaneous Information 1 ea NOTE XX ; Start 10/08/17 at 13:30 Glucose (Glutose) 15 gm Q15M PRN PO DECREASED GLUCOSE; Start 10/08/17 at 13:30 Glucose (Glutose) 22.5 gm Q15M PRN PO DECREASED GLUCOSE; Start 10/08/17 at 13: 30 Dextrose (D50w Syringe) 25 ml Q15M PRN IV DECREASED GLUCOSE; Start 10/08/17 at 13:30 Dextrose (D50w Syringe) 50 ml Q15M PRN IV DECREASED GLUCOSE; Start 10/08/17 at 13:30 Glucagon (Glucagen) 1 mg Q15M PRN IM DECREASED GLUCOSE; Start 10/08/17 at 13:30 Glucose (Glutose) 15 gm Q15M PRN BUCCAL DECREASED GLUCOSE; Start 10/08/17 at 13 :30 Bisacodyl (Dulcolax) 10 mg BID PRN PO CONSTIPATION; Start 10/09/17 at 14:30 Polyethylene Glycol (Miralax) 17 gm DAILY PO Last administered on 10/11/17 09 :14; Admin Dose 17 GM; Start 10/09/17 at 14:30 Insulin Glargine (Lantus) 30 unit QHS SC ; Start 10/11/17 at 21:00 Linagliptin (Tradjenta) 5 mg DAILY PO Last administered on 10/11/17 12:26; Admin Dose 5 MG; Start 10/11/17 at 12:00 HEATH MUSA MD Oct 11, 2017 14:06
[2017-10-11] MEDS: CEFTRIAXONE 1 GM/50 ML (PMX) 50 ML IVPB SCH (18:20)
[2017-10-11] MEDS: INSULIN GLARGINE [LANtus] 3 ML PEN SC SCH (21:03)
[2017-10-11] MEDS: ATORVASTATIN 20 MG TAB PO SCH (21:04)
[2017-10-12] VITALS (12 sets, daily range): BP systolic 139–179; BP diastolic 57–69; PULSE 54–63; RESP 16–20
[2017-10-12] MEDS: ACCU-CHEK XX SCH (02:00)
[2017-10-12] MEDS: PANTOPRAZOLE (EC) 40 MG TAB PO SCH (05:54)
[2017-10-12 07:50] LABS: CALCIUM 9.5 mg/dl (8.4-10.2); CREATININE 1.29 mg/dl (0.44-1.00); POTASSIUM 3.5 mmol/L (3.5-5.1)
[2017-10-12] MEDS: INSULIN ASPART [NOVOLOG] 3 ML PEN SC SCH ×7 (07:55→21:00)
[2017-10-12] MEDS: ALBUTEROL/IPRATROPIUM (NEB) 3 ML AMP HHN SCH ×3 (08:17→20:46)
--- NOTE | 2017-10-12 08:22 | PN ---
Date/Time of Note Date/Time of Note DATE: 10/12/17 TIME: 08:21 Assessment/Plan VTE Prophylaxis VTE Prophylaxis Intervention: SCD's Lines/Catheters IV Catheter Type (from Nrsg): Saline Lock Urinary Cath still in place: No Assessment/Plan Chief Complaint/Hosp Course 1. S/p fall with acute right rib fractures of 5, 6, 7 2. Hypertension, controlled 3. Morbid obesity 4. Multilevel degenerative spondylosis of the thoracic spine. 5. Dm type II, uncontrolled 6. Anemia 7. dyslipidemia Problems: Assessment/Plan 1. Continue pain control 2. PT eval for mobility Subjective 24 Hr Interval Summary Constitutional: improved Musculoskeletal: back pain, bone/joint pain Exam/Review of Systems Vital Signs Vitals Vital Signs Date Time Temp Pulse Resp B/P Pulse Ox O2 Delivery O2 Flow Rate FiO2 10/12/17 08:04 98.3 67 18 179/69 95 10/12/17 08:01 Nasal Cannula 2.0 Intake and Output 10/11/17 10/11/17 10/12/17 15:00 23:00 07:00 Intake Total 1000 ml Balance 1000 ml Exam Constitutional: alert, oriented Respiratory: clear to auscultation, normal air movement Musculoskeletal: range of motion (back) Results Result Diagram: 10/08/17 0753 10/12/17 0525 Results 24 hrs Laboratory Tests Test 10/11/17 12:04 10/11/17 17:06 10/11/17 21:01 10/12/17 03:18 Bedside Glucose 227 H 203 213 242 H Test 10/12/17 05:25 Sodium Level 139 Potassium Level 3.5 Chloride Level 93 L Carbon Dioxide Level Pending Anion Gap 9 Blood Urea Nitrogen 26 H Creatinine 1.29 H Glucose Level 221 H Calcium Level 9.5 Medications Medications Current Medications Acetaminophen (Tylenol Tab) 650 mg Q6H PRN PO PAIN AND OR ELEVATED TEMP; Start 10/03/17 at 01:30 Morphine Sulfate (morphine) 2 mg Q4H PRN IV PAIN Last administered on 05:31; Admin Dose 2 MG; Start 10/03/17 at 01:30 Ondansetron HCl (Zofran Inj) 4 mg Q6H PRN IV NAUSEA AND/OR VOMITING Last administered on 10/03/17 02:32; Admin Dose 4 MG; Start 10/03/17 at 01:30 Amitriptyline HCl (Elavil) 10 mg DAILY PO Last administered on 10/11/17 09:16 ; Admin Dose 10 MG; Start 10/03/17 at 09:00 Amlodipine Besylate (Norvasc) 10 mg DAILY PO Last administered on 10/11/17 09 :15; Admin Dose 10 MG; Start 10/03/17 at 09:00 Aspirin (Halfprin) 81 mg DAILY PO Last administered on 10/11/17 09:16; Admin Dose 81 MG; Start 10/03/17 at 09:00 Calcium Carbonate (Oyster Shell Calcium) 1.25 gm BID PO Last administered on 21:04; Admin Dose 1.25 GM; Start 10/03/17 at 09:00 Docusate Sodium (Colace) 100 mg QID PO Last administered on 10/11/17 21:04; Admin Dose 100 MG; Start 10/03/17 at 09:00 Folic Acid (Folic Acid) 1 mg DAILY PO Last administered on 10/11/17 09:18; Admin Dose 1 MG; Start 10/03/17 at 09:00 Furosemide (Lasix) 20 mg DAILY PO Last administered on 10/11/17 09:16; Admin Dose 20 MG; Start 10/03/17 at 09:00 Metolazone (Zaroxolyn) 2.5 mg DAILY PO Last administered on 10/11/17 09:16; Admin Dose 2.5 MG; Start 10/03/17 at 09:00 Nystatin (Nystatin Cr) 1 applic BID TOP Last administered on 10/11/17 21:06; Admin Dose 1 APPLIC; Start 10/03/17 at 09:00 Pantoprazole (Protonix Tab) 40 mg DAILY@06 PO Last administered on 10/12/17 05:54; Admin Dose 40 MG; Start 10/03/17 at 06:00 Ranolazine (Ranexa) 500 mg Q12 PO Last administered on 10/11/17 21:04; Admin Dose 500 MG; Start 10/03/17 at 09:00 Gabapentin (Neurontin) 100 mg TID PO Last administered on 10/11/17 21:04; Admin Dose 100 MG; Start 10/03/17 at 09:00 Miscellaneous Information 1 drop QID XX ; Start 10/03/17 at 09:00; Status UNV Naproxen (Naprosyn) 375 mg BID PRN PO PAIN; Start 10/03/17 at 01:30 Acetaminophen/ Hydrocodone Bitart ([place] (7.5-325)) 1 tab Q6H PRN PO PAIN Last administered on 10/11/17 09:16; Admin Dose 1 TAB; Start 10/03/17 at 03:00 Atorvastatin Calcium (Lipitor) 20 mg DAILY@21 PO Last administered on 21:04; Admin Dose 20 MG; Start 10/04/17 at 21:00 Miscellaneous Information MEDICATION REQUIRES CLARIFICATION: Q8H XX ; Start 10/06/17 at 07:30 Ceftriaxone Sodium (Rocephin) 50 ml @ 100 mls/hr Q24H IVPB Last administered on 10/11/17 18:20; Admin Dose 100 MLS/HR; Start 10/07/17 at 18:30 Diagnostic Test (Pha) (Accu-Chek) 1 ea 02 XX ; Start 10/09/17 at 02:00 Miscellaneous Information 1 ea NOTE XX ; Start 10/08/17 at 13:30 Glucose (Glutose) 15 gm Q15M PRN PO DECREASED GLUCOSE; Start 10/08/17 at 13:30 Glucose (Glutose) 22.5 gm Q15M PRN PO DECREASED GLUCOSE; Start 10/08/17 at 13: 30 Dextrose (D50w Syringe) 25 ml Q15M PRN IV DECREASED GLUCOSE; Start 10/08/17 at 13:30 Dextrose (D50w Syringe) 50 ml Q15M PRN IV DECREASED GLUCOSE; Start 10/08/17 at 13:30 Glucagon (Glucagen) 1 mg Q15M PRN IM DECREASED GLUCOSE; Start 10/08/17 at 13:30 Glucose (Glutose) 15 gm Q15M PRN BUCCAL DECREASED GLUCOSE; Start 10/08/17 at 13 :30 Bisacodyl (Dulcolax) 10 mg BID PRN PO CONSTIPATION; Start 10/09/17 at 14:30 Polyethylene Glycol (Miralax) 17 gm DAILY PO Last administered on 10/11/17 09 :14; Admin Dose 17 GM; Start 10/09/17 at 14:30 Insulin Glargine (Lantus) 30 unit QHS SC Last administered on 10/11/17 21:03 ; Admin Dose 30 UNIT; Start 10/11/17 at 21:00 Linagliptin (Tradjenta) 5 mg DAILY PO Last administered on 10/11/17 12:26; Admin Dose 5 MG; Start 10/11/17 at 12:00 PATRICIA CALVERT Oct 12, 2017 08:22
[2017-10-12] MEDS: POLYETHYLENE GLYCOL 17 GM PACKET PO SCH (09:01)
[2017-10-12] MEDS: AMLODIPINE 10 MG TAB PO SCH (09:02)
[2017-10-12] MEDS: CALCIUM CARBONATE 1.25 GM TAB PO SCH ×2 (09:03→21:36)
[2017-10-12] MEDS: FOLIC ACID 1 MG TAB PO SCH (09:03)
[2017-10-12] MEDS: LINAGLIPTIN 5 MG TABLET PO SCH (09:03)
[2017-10-12] MEDS: AMITRIPTYLINE 10 MG TAB PO SCH (09:03)
[2017-10-12] MEDS: RANOLAZINE (SR) 500 MG TAB PO SCH ×2 (09:03→21:36)
[2017-10-12] MEDS: ASPIRIN (EC) 81 MG TAB PO SCH (09:03)
[2017-10-12] MEDS: DOCUSATE SODIUM 100 MG CAP PO SCH ×4 (09:03→21:36)
[2017-10-12] MEDS: METOLAZONE 2.5 MG TAB PO SCH (09:03)
[2017-10-12] MEDS: GABAPENTIN 100 MG CAP PO SCH ×3 (09:03→21:36)
[2017-10-12] MEDS: FUROSEMIDE 20 MG TAB PO SCH (09:03)
[2017-10-12] MEDS: NYSTATIN 15 GM CR TOP SCH ×2 (09:04→21:37)
--- NOTE | 2017-10-12 12:16 | PDOCDIS ---
Discharge Instructions CONDITION Patient Condition: Stable HOME CARE INSTRUCTIONS: Special Diet: CARB CONT ACTIVITY: Activity Restrictions: Slowly Increase Activity Bathing Restrictions: Sponge Bath SCHOOL/WORK RELEASE May return to School/Work with: With Restrictions PATRICIA CALVERT Oct 12, 2017 12:16
[2017-10-12] MEDS ORDERED: NOVO3I SC (12:21)
[2017-10-12] MEDS ORDERED: LANT3I SC (12:21)
[2017-10-12] MEDS ORDERED: HYDR-3605 PO (12:21)
--- NOTE | 2017-10-12 12:24 | DS ---
Date/Time of Note Date/Time of Note DATE: 10/12/17 TIME: 12:22 Discharge Summary Admission/Discharge Info Admit Date/Time Oct 02, 2017 at 22:30 Discharge Date/Time Discharge Diagnosis 1. S/p fall with acute right rib fractures of 5, 6, 7 2. Hypertension, controlled Patient Condition: Stable Hospital Course This a 77-year-old female presents after mechanical fall she got caught in fell and landed on her right side, hit her right shoulder. She has pain in the posterior right shoulder does not want to move the arm. Also has pain in her back if she did land on her backside. She denies any head injury loss of consciousness. Denies any chest pain or lightheadedness prior to the fall. Per ER record she felt well all morning until the fall. There is no neurological deficits. 1. S/p fall with acute right rib fractures of 5, 6, 7 2. Hypertension, controlled 3. Morbid obesity 4. Multilevel degenerative spondylosis of the thoracic spine. 5. Dm type II, uncontrolled 6. Anemia 7. dyslipidemia Nurses set the pt up on the edge of the bed, she complained on pain. Pt need to be transferred to SNF for continuation PT Home Meds Active Scripts Naproxen* (Naproxen*) 375 Mg Tablet, 375 MG PO BID Y for PAIN, #20 TAB Prov:AFIA PATEL DO 10/02/17 Hydrocodone/Acetaminophen ([place] 7.5-325 Tablet) 1 Each Tablet, 1 EACH PO Q6 for SEVERE PAIN LEVEL 7-10, #20 TAB Prov:AFIA PATEL DO 10/02/17 Reported Medications Calcium Carbonate* ([place]-500*) 1 Tab Tablet, 1 TAB PO BID, TAB 06/21/16 Ketorolac Tromethamine Oph (Ketorolac Tromethamine Oph) 0.5%-5 Ml Opht Drops, 1 DROP BOTH EYES QID, EA 06/21/16 Nystatin* (Nystatin*) 15 Gm Cr, 1 APPLIC TOP BID, #1 TUB 06/21/16 Docusate Sodium* (Dok*) 100 Mg Tablet, 100 MG PO QID, #120 CAP 06/21/16 Glipizide* (Glipizide*) 10 Mg Tablet, 10 MG PO BID, TAB 06/21/16 Furosemide* (Furosemide*) 20 Mg Tablet, 20 MG PO DAILY, #60 TAB 06/21/16 Insulin Aspart* (Novolog Insulin Vial*) 100 U/Ml Vial, 33 UNITS SC TID WITH MEAL , VIAL 06/21/16 Pantoprazole* (Pantoprazole*) 40 Mg Tablet.dr, 40 MG PO DAILY, TAB 06/21/16 Simvastatin (Simvastatin) 20 Mg Tablet, 20 MG PO HS, TAB 01/06/15 Ranolazine* (Ranexa*) 500 Mg Tab.sr.12h, 500 MG PO Q12, TAB 01/06/15 Insulin Glargine,Hum.rec.anlog (Lantus) 100 U/Ml Cartridge, 21 UNITS SQ QHS 05/20/13 Amlodipine Besylate* (Amlodipine Besylate*) 10 Mg Tablet, 10 MG PO DAILY 05/20/13 Metolazone* (Metolazone*) 2.5 Mg Tablet, 2.5 MG PO DAILY 07/17/12 Folic Acid* (Folic Acid*) 1 Mg Tablet, 1 MG PO DAILY 07/17/12 Aspirin* (Aspirin* EC) 81 Mg Tablet.dr, 81 MG PO DAILY 07/17/12 Gabapentin (Gabapentin) 100 Gm Powder, 100 MG PO TID 07/17/12 Amitriptyline Hcl* (Amitriptyline Hcl*) 10 Mg Tablet, 10 MG PO DAILY 07/17/12 Colesevelam Hcl* (Welchol*) 625 Mg Tablet, 625 MG PO TID 07/17/12 Primary Care Provider Raghav Serrano MD Time spent on discharge: < 30 minutes Pending Labs Laboratory Tests Test 10/11/17 17:06 10/11/17 21:01 10/12/17 03:18 10/12/17 05:25 Bedside Glucose 203mg/dL (70-220) 213mg/dL (70-220) 242mg/dL (70-220) Sodium Level 139mmol/L (135-144) Potassium Level 3.5mmol/L (3.5-5.1) Chloride Level 93mmol/L (97-110) Carbon Dioxide Level 40mmol/L (21-31) Anion Gap 10 (8-16) Blood Urea Nitrogen 26mg/dl (7-20) Creatinine 1.29mg/dl (0.44-1.00) Glucose Level 221mg/dl (70-220) Calcium Level 9.5mg/dl (8.4-10.2) Test 10/12/17 07:52 10/12/17 12:03 Bedside Glucose 239mg/dL (70-220) 198mg/dL (70-220) PATRICIA CALVERT Oct 12, 2017 12:24
--- NOTE | 2017-10-12 15:21 | CONS ---
Date/Time of Note Date/Time of Note DATE: 10/12/17 TIME: 15:20 Assessment/Plan Assessment/Plan Additional Assessment/Plan 1. Chest pain, likely secondary to rib fracture, rule out acute coronary syndrome.-neg trop x 3/NL EF by echo but borderline severe - no CP now, med RX advised. STABLE. BETTER NOW - dispo planned. 2. Abnormal electrocardiogram with nonspecific ST-T abnormalities, assess for acute coronary syndrome- no CP now. NO ECTOPY on TELE. 3. Shortness of breath, assess for congestive heart failure - stable fluid status by exam. IMPROVED. 4. Hypertension, under reasonable control- isacc Rx medically as indicated. BETTER NOW. 5. Bradycardia, mild with stable blood pressure. NO indication for pacer now. STABLE. 6. Diabetes mellitus- on meds, keep euglycemic. 7. Status post fall, rule out cardiac etiology. Rule out cardiac arrhythmia. 8. -borderline severe Consultation Date/Type/Reason Admit Date/Time Oct 02, 2017 at 22:30 Type of Consultation: cardiology Referring Provider: ROGERS SALAZAR MD 24 HR Interval Summary Free Text/Dictation NO acute events- BP in good range - no CP now. Dospo planned. ROS: No fever, no chills, no nausea, no vomiting, no diarrhea/constipation No recent weight changes No chest pain, no PND, no orthopnea No dizziness, blurred vision No thirst, no heat or cold intolerance Exam/Review of Systems Vital Signs Vitals Vital Signs Date Time Temp Pulse Resp B/P Pulse Ox O2 Delivery O2 Flow Rate FiO2 10/12/17 14:38 64 20 98 Nasal Cannula 2.0 10/12/17 12:03 98.1 144/65 Intake and Output 10/11/17 10/11/17 10/12/17 15:00 23:00 07:00 Intake Total 1000 ml Balance 1000 ml Exam General: WN/WD/NAD, AOx 3 HEENT: Unicetric/atraumatic/EOMI (follow commands) NECK: JVD elevated, no thyromegaly Lymph: no lymphadenopathy HEART: regular with no S3, II/ systolic murmur at apex LUNGS: Coarse sounds ABD: soft, NT, ND, +BS : Intact Neuro: non focal SKIN: chronic changes EXT: trace edema Results Result Diagram: 10/08/17 0753 10/12/17 0525 Results 24 hrs Laboratory Tests Test 10/11/17 17:06 10/11/17 21:01 10/12/17 03:18 10/12/17 05:25 Bedside Glucose 203 213 242 H Sodium Level 139 Potassium Level 3.5 Chloride Level 93 L Carbon Dioxide Level 40 H Anion Gap 10 Blood Urea Nitrogen 26 H Creatinine 1.29 H Glucose Level 221 H Calcium Level 9.5 Test 10/12/17 07:52 10/12/17 12:03 Bedside Glucose 239 H 198 Medications Medications Current Medications Acetaminophen (Tylenol Tab) 650 mg Q6H PRN PO PAIN AND OR ELEVATED TEMP; Start 10/03/17 at 01:30 Morphine Sulfate (morphine) 2 mg Q4H PRN IV PAIN Last administered on 05:31; Admin Dose 2 MG; Start 10/03/17 at 01:30 Ondansetron HCl (Zofran Inj) 4 mg Q6H PRN IV NAUSEA AND/OR VOMITING Last administered on 10/03/17 02:32; Admin Dose 4 MG; Start 10/03/17 at 01:30 Amitriptyline HCl (Elavil) 10 mg DAILY PO Last administered on 10/12/17 09:03 ; Admin Dose 10 MG; Start 10/03/17 at 09:00 Amlodipine Besylate (Norvasc) 10 mg DAILY PO Last administered on 10/12/17 09 :02; Admin Dose 10 MG; Start 10/03/17 at 09:00 Aspirin (Halfprin) 81 mg DAILY PO Last administered on 10/12/17 09:03; Admin Dose 81 MG; Start 10/03/17 at 09:00 Calcium Carbonate ([place]yster Shell Calcium) 1.25 gm BID PO Last administered on 09:03; Admin Dose 1.25 GM; Start 10/03/17 at 09:00 Docusate Sodium (Colace) 100 mg QID PO Last administered on 10/12/17 12:20; Admin Dose 100 MG; Start 10/03/17 at 09:00 Folic Acid (Folic Acid) 1 mg DAILY PO Last administered on 10/12/17 09:03; Admin Dose 1 MG; Start 10/03/17 at 09:00 Furosemide (Lasix) 20 mg DAILY PO Last administered on 10/12/17 09:03; Admin Dose 20 MG; Start 10/03/17 at 09:00 Metolazone (Zaroxolyn) 2.5 mg DAILY PO Last administered on 10/12/17 09:03; Admin Dose 2.5 MG; Start 10/03/17 at 09:00 Nystatin (Nystatin Cr) 1 applic BID TOP Last administered on 10/12/17 09:04; Admin Dose 1 APPLIC; Start 10/03/17 at 09:00 Pantoprazole (Protonix Tab) 40 mg DAILY@06 PO Last administered on 10/12/17 05:54; Admin Dose 40 MG; Start 10/03/17 at 06:00 Ranolazine (Ranexa) 500 mg Q12 PO Last administered on 10/12/17 09:03; Admin Dose 500 MG; Start 10/03/17 at 09:00 Gabapentin (Neurontin) 100 mg TID PO Last administered on 10/12/17 12:20; Admin Dose 100 MG; Start 10/03/17 at 09:00 Naproxen (Naprosyn) 375 mg BID PRN PO PAIN; Start 10/03/17 at 01:30 Acetaminophen/ Hydrocodone Bitart ([place] (7.5-325)) 1 tab Q6H PRN PO PAIN Last administered on 10/11/17 09:16; Admin Dose 1 TAB; Start 10/03/17 at 03:00 Atorvastatin Calcium 20 mg 20 mg DAILY@21 PO Last administered on 10/11/17 21 :04; Admin Dose 20 MG; Start 10/04/17 at 21:00 Ceftriaxone Sodium (Rocephin) 50 ml @ 100 mls/hr Q24H IVPB Last administered on 10/11/17 18:20; Admin Dose 100 MLS/HR; Start 10/07/17 at 18:30 Diagnostic Test (Pha) (Accu-Chek) 1 ea 02 XX ; Start 10/09/17 at 02:00 Miscellaneous Information 1 ea NOTE XX ; Start 10/08/17 at 13:30 Glucose (Glutose) 15 gm Q15M PRN PO DECREASED GLUCOSE; Start 10/08/17 at 13:30 Glucose (Glutose) 22.5 gm Q15M PRN PO DECREASED GLUCOSE; Start 10/08/17 at 13: 30 Dextrose (D50w Syringe) 25 ml Q15M PRN IV DECREASED GLUCOSE; Start 10/08/17 at 13:30 Dextrose (D50w Syringe) 50 ml Q15M PRN IV DECREASED GLUCOSE; Start 10/08/17 at 13:30 Glucagon (Glucagen) 1 mg Q15M PRN IM DECREASED GLUCOSE; Start 10/08/17 at 13:30 Glucose (Glutose) 15 gm Q15M PRN BUCCAL DECREASED GLUCOSE; Start 10/08/17 at 13 :30 Bisacodyl (Dulcolax) 10 mg BID PRN PO CONSTIPATION; Start 10/09/17 at 14:30 Polyethylene Glycol (Miralax) 17 gm DAILY PO Last administered on 10/12/17 09 :01; Admin Dose 17 GM; Start 10/09/17 at 14:30 Insulin Glargine (Lantus) 30 unit QHS SC Last administered on 10/11/17 21:03 ; Admin Dose 30 UNIT; Start 10/11/17 at 21:00 Linagliptin (Tradjenta) 5 mg DAILY PO Last administered on 10/12/17 09:03; Admin Dose 5 MG; Start 10/11/17 at 12:00 HEATH MUSA MD Oct 12, 2017 15:21
[2017-10-12] MEDS: CEFTRIAXONE 1 GM/50 ML (PMX) 50 ML IVPB SCH (18:15)
[2017-10-12] MEDS: INSULIN GLARGINE [LANtus] 3 ML PEN SC SCH (21:35)
[2017-10-12] MEDS: ATORVASTATIN 20 MG TAB PO SCH (21:36)
[2017-10-13] VITALS (9 sets, daily range): BP systolic 130–155; BP diastolic 62–66; PULSE 62–71; RESP 16–20
[2017-10-13] MEDS: ACCU-CHEK XX SCH (02:00)
[2017-10-13] MEDS: ONDANSETRON 4 MG INJ IV PRN (02:25)
[2017-10-13] MEDS: PANTOPRAZOLE (EC) 40 MG TAB PO SCH (02:25)
[2017-10-13] MEDS: ALBUTEROL/IPRATROPIUM (NEB) 3 ML AMP HHN SCH ×2 (08:22→14:59)
[2017-10-13] MEDS: FUROSEMIDE 20 MG TAB PO SCH (08:31)
[2017-10-13] MEDS: CALCIUM CARBONATE 1.25 GM TAB PO SCH (08:32)
[2017-10-13] MEDS: AMLODIPINE 10 MG TAB PO SCH (08:32)
[2017-10-13] MEDS: AMITRIPTYLINE 10 MG TAB PO SCH (08:32)
[2017-10-13] MEDS: POLYETHYLENE GLYCOL 17 GM PACKET PO SCH (08:32)
[2017-10-13] MEDS: DOCUSATE SODIUM 100 MG CAP PO SCH ×3 (08:32→17:00)
[2017-10-13] MEDS: GABAPENTIN 100 MG CAP PO SCH ×2 (08:32→13:30)
[2017-10-13] MEDS: RANOLAZINE (SR) 500 MG TAB PO SCH (08:32)
[2017-10-13] MEDS: NYSTATIN 15 GM CR TOP SCH (08:33)
[2017-10-13] MEDS: METOLAZONE 2.5 MG TAB PO SCH (08:33)
[2017-10-13] MEDS: LINAGLIPTIN 5 MG TABLET PO SCH (08:33)
[2017-10-13] MEDS: ASPIRIN (EC) 81 MG TAB PO SCH (08:33)
[2017-10-13] MEDS: INSULIN ASPART [NOVOLOG] 3 ML PEN SC SCH ×6 (08:34→17:30)
[2017-10-13] MEDS: FOLIC ACID 1 MG TAB PO SCH (08:35)
--- NOTE | 2017-10-13 14:28 | CONS ---
Date/Time of Note Date/Time of Note DATE: 10/13/17 TIME: 14:26 Assessment/Plan Assessment/Plan Chief Complaint/Hosp Course IMPRESSION: 1. Chest pain, likely secondary to rib fracture, rule out acute coronary syndrome.-neg trop x 3/NL EF by echo but borderline severe 2. Abnormal electrocardiogram with nonspecific ST-T abnormalities, assess for acute coronary syndrome. 3. Shortness of breath, assess for congestive heart failure. 4. Hypertension, under reasonable control. 5. Bradycardia, mild with stable blood pressure. 6. Diabetes mellitus. 7. Status post fall, rule out cardiac etiology. Rule out cardiac arrhythmia. 8. -borderline severe Recc: -Tele -continue norvasc -Continue asa/statin -Continue ranexa -Continue lasix/metolazone -will require further work up of , likely can be done as outpatient Problems: Consultation Date/Type/Reason Admit Date/Time Oct 02, 2017 at 22:30 Initial Consult Date 10/03/2017 Type of Consultation: cardiology Reason for Consultation chest pain Referring Provider: ROGERS SALAZAR MD Exam/Review of Systems Vital Signs Vitals Vital Signs Date Time Temp Pulse Resp B/P Pulse Ox O2 Delivery O2 Flow Rate FiO2 10/13/17 12:22 64 10/13/17 11:41 98.1 19 146/64 98 10/13/17 08:23 Nasal Cannula 2.0 10/12/17 20:47 21 Intake and Output 10/12/17 10/12/17 10/13/17 14:59 22:59 06:59 Intake Total 1000 ml 500 ml Balance 1000 ml 500 ml Exam Review of Systems: CONSTITUTIONAL: No fevers, chills. PULMONARY: No sob CARDIOVASCULAR: No chest pain/palpitations GASTROINTESTINAL: No nausea/vomiting. GENITOURINARY: No hematuria/dysuria. MUSCULOSKELETAL: No myagias/arthalgias. PSYCHIATRIC: The patient denies depression. NEUROLOGIC: No weakness Constitutional: alert, oriented Head: normocephalic ENMT: mucosa pink and moist Neck: jvd, supple Respiratory: diminished breath sounds (at bases/B) Cardiovascular: regular rate and rhythm Gastrointestinal: soft Musculoskeletal: muscle tone Extremities: normal pulses Neurological: other (No focal deficits) Results Result Diagram: 10/12/17 0525 Results 24 hrs Laboratory Tests Test 10/12/17 17:12 10/12/17 21:33 10/13/17 02:20 10/13/17 08:18 Bedside Glucose 194 176 171 219 Test 10/13/17 12:06 10/13/17 13:21 Bedside Glucose 220 236 H Medications Medications Current Medications Acetaminophen (Tylenol Tab) 650 mg Q6H PRN PO PAIN AND OR ELEVATED TEMP; Start 10/03/17 at 01:30 Morphine Sulfate (morphine) 2 mg Q4H PRN IV PAIN Last administered on 05:31; Admin Dose 2 MG; Start 10/03/17 at 01:30 Ondansetron HCl (Zofran Inj) 4 mg Q6H PRN IV NAUSEA AND/OR VOMITING Last administered on 10/13/17 02:25; Admin Dose 4 MG; Start 10/03/17 at 01:30 Amitriptyline HCl (Elavil) 10 mg DAILY PO Last administered on 10/13/17 08:32 ; Admin Dose 10 MG; Start 10/03/17 at 09:00 Amlodipine Besylate (Norvasc) 10 mg DAILY PO Last administered on 10/13/17 08 :32; Admin Dose 10 MG; Start 10/03/17 at 09:00 Aspirin (Halfprin) 81 mg DAILY PO Last administered on 10/13/17 08:33; Admin Dose 81 MG; Start 10/03/17 at 09:00 Calcium Carbonate ([place] Calcium) 1.25 gm BID PO Last administered on 08:32; Admin Dose 1.25 GM; Start 10/03/17 at 09:00 Docusate Sodium (Colace) 100 mg QID PO Last administered on 10/13/17 13:30; Admin Dose 100 MG; Start 10/03/17 at 09:00 Folic Acid (Folic Acid) 1 mg DAILY PO Last administered on 10/13/17 08:35; Admin Dose 1 MG; Start 10/03/17 at 09:00 Furosemide (Lasix) 20 mg DAILY PO Last administered on 10/13/17 08:31; Admin Dose 20 MG; Start 10/03/17 at 09:00 Metolazone (Zaroxolyn) 2.5 mg DAILY PO Last administered on 10/13/17 08:33; Admin Dose 2.5 MG; Start 10/03/17 at 09:00 Nystatin (Nystatin Cr) 1 applic BID TOP Last administered on 10/13/17 08:33; Admin Dose 1 APPLIC; Start 10/03/17 at 09:00 Pantoprazole (Protonix Tab) 40 mg DAILY@06 PO Last administered on 10/13/17 02:25; Admin Dose 40 MG; Start 10/03/17 at 06:00 Ranolazine (Ranexa) 500 mg Q12 PO Last administered on 10/13/17 08:32; Admin Dose 500 MG; Start 10/03/17 at 09:00 Gabapentin (Neurontin) 100 mg TID PO Last administered on 10/13/17 13:30; Admin Dose 100 MG; Start 10/03/17 at 09:00 Naproxen (Naprosyn) 375 mg BID PRN PO PAIN; Start 10/03/17 at 01:30 Acetaminophen/ Hydrocodone Bitart ([place] (7.5-325)) 1 tab Q6H PRN PO PAIN Last administered on 10/11/17 09:16; Admin Dose 1 TAB; Start 10/03/17 at 03:00 Atorvastatin Calcium 20 mg 20 mg DAILY@21 PO Last administered on 10/12/17 21 :36; Admin Dose 20 MG; Start 10/04/17 at 21:00 Ceftriaxone Sodium (Rocephin) 50 ml @ 100 mls/hr Q24H IVPB Last administered on 10/12/17 18:15; Admin Dose 100 MLS/HR; Start 10/07/17 at 18:30 Diagnostic Test (Pha) (Accu-Chek) 1 ea 02 XX ; Start 10/09/17 at 02:00 Miscellaneous Information 1 ea NOTE XX ; Start 10/08/17 at 13:30 Glucose (Glutose) 15 gm Q15M PRN PO DECREASED GLUCOSE; Start 10/08/17 at 13:30 Glucose (Glutose) 22.5 gm Q15M PRN PO DECREASED GLUCOSE; Start 10/08/17 at 13: 30 Dextrose (D50w Syringe) 25 ml Q15M PRN IV DECREASED GLUCOSE; Start 10/08/17 at 13:30 Dextrose (D50w Syringe) 50 ml Q15M PRN IV DECREASED GLUCOSE; Start 10/08/17 at 13:30 Glucagon (Glucagen) 1 mg Q15M PRN IM DECREASED GLUCOSE; Start 10/08/17 at 13:30 Glucose (Glutose) 15 gm Q15M PRN BUCCAL DECREASED GLUCOSE; Start 10/08/17 at 13 :30 Bisacodyl (Dulcolax) 10 mg BID PRN PO CONSTIPATION Last administered on 21:36; Admin Dose 10 MG; Start 10/09/17 at 14:30 Polyethylene Glycol (Miralax) 17 gm DAILY PO Last administered on 10/13/17 08 :32; Admin Dose 17 GM; Start 10/09/17 at 14:30 Insulin Glargine (Lantus) 30 unit QHS SC Last administered on 10/12/17 21:35 ; Admin Dose 30 UNIT; Start 10/11/17 at 21:00 Linagliptin (Tradjenta) 5 mg DAILY PO Last administered on 10/13/17 08:33; Admin Dose 5 MG; Start 10/11/17 at 12:00 ALMAZ TITUS 13, 2017 14:28
--- NOTE | 2017-10-13 14:42 | PN ---
Date/Time of Note Date/Time of Note DATE: 10/13/17 TIME: 14:41 Assessment/Plan VTE Prophylaxis VTE Prophylaxis Intervention: other Lines/Catheters IV Catheter Type (from Nrsg): Saline Lock Urinary Cath still in place: No Assessment/Plan Chief Complaint/Hosp Course 77 y/o with . 1 S/p fall with acute right rib fractures of 5, 6, 7 2. Hypertension, controlled 3. Morbid obesity 4. Multilevel degenerative spondylosis of the thoracic spine. 5. Dm type II, uncontrolled 6. Anemia 7. dyslipidemia Problems: Assessment/Plan 1. Continue pain control 2. PT eval for mobility 3 dc today to [facility], orders placed yesterday 4 c/w rocephin Problems: Subjective 24 Hr Interval Summary Free Text/Dictation Pt doing good, pain improved Exam/Review of Systems Vital Signs Vitals Vital Signs Date Time Temp Pulse Resp B/P Pulse Ox O2 Delivery O2 Flow Rate FiO2 10/13/17 12:22 64 10/13/17 11:41 98.1 19 146/64 98 10/13/17 08:23 Nasal Cannula 2.0 10/12/17 20:47 21 Intake and Output 10/12/17 10/12/17 10/13/17 14:59 22:59 06:59 Intake Total 1000 ml 500 ml Balance 1000 ml 500 ml Exam Constitutional: alert, oriented Head: normocephalic ENMT: mucosa pink and moist Neck: jvd, supple Respiratory: diminished breath sounds (at bases/B) Cardiovascular: regular rate and rhythm Gastrointestinal: soft Musculoskeletal: muscle tone Extremities: normal pulses Neurological: other (No focal deficits) Results Result Diagram: 10/12/17 0525 Results 24 hrs Laboratory Tests Test 10/12/17 17:12 10/12/17 21:33 10/13/17 02:20 10/13/17 08:18 Bedside Glucose 194 176 171 219 Test 10/13/17 12:06 10/13/17 13:21 Bedside Glucose 220 236 H Medications Medications Current Medications Acetaminophen (Tylenol Tab) 650 mg Q6H PRN PO PAIN AND OR ELEVATED TEMP; Start 10/03/17 at 01:30 Morphine Sulfate (morphine) 2 mg Q4H PRN IV PAIN Last administered on t 05:31; Admin Dose 2 MG; Start 10/03/17 at 01:30 Ondansetron HCl (Zofran Inj) 4 mg Q6H PRN IV NAUSEA AND/OR VOMITING Last administered on 10/13/17 02:25; Admin Dose 4 MG; Start 10/03/17 at 01:30 Amitriptyline HCl (Elavil) 10 mg DAILY PO Last administered on 10/13/17 08:32 ; Admin Dose 10 MG; Start 10/03/17 at 09:00 Amlodipine Besylate (Norvasc) 10 mg DAILY PO Last administered on 10/13/17 08 :32; Admin Dose 10 MG; Start 10/03/17 at 09:00 Aspirin (Halfprin) 81 mg DAILY PO Last administered on 10/13/17 08:33; Admin Dose 81 MG; Start 10/03/17 at 09:00 Calcium Carbonate ([place] Calcium) 1.25 gm BID PO Last administered on 08:32; Admin Dose 1.25 GM; Start 10/03/17 at 09:00 Docusate Sodium (Colace) 100 mg QID PO Last administered on 10/13/17 13:30; Admin Dose 100 MG; Start 10/03/17 at 09:00 Folic Acid (Folic Acid) 1 mg DAILY PO Last administered on 10/13/17 08:35; Admin Dose 1 MG; Start 10/03/17 at 09:00 Furosemide (Lasix) 20 mg DAILY PO Last administered on 10/13/17 08:31; Admin Dose 20 MG; Start 10/03/17 at 09:00 Metolazone (Zaroxolyn) 2.5 mg DAILY PO Last administered on 10/13/17 08:33; Admin Dose 2.5 MG; Start 10/03/17 at 09:00 Nystatin (Nystatin Cr) 1 applic BID TOP Last administered on 10/13/17 08:33; Admin Dose 1 APPLIC; Start 10/03/17 at 09:00 Pantoprazole (Protonix Tab) 40 mg DAILY@06 PO Last administered on 10/13/17 02:25; Admin Dose 40 MG; Start 10/03/17 at 06:00 Ranolazine (Ranexa) 500 mg Q12 PO Last administered on 10/13/17 08:32; Admin Dose 500 MG; Start 10/03/17 at 09:00 Gabapentin (Neurontin) 100 mg TID PO Last administered on 10/13/17 13:30; Admin Dose 100 MG; Start 10/03/17 at 09:00 Naproxen (Naprosyn) 375 mg BID PRN PO PAIN; Start 10/03/17 at 01:30 Acetaminophen/ Hydrocodone Bitart ([place] (7.5-325)) 1 tab Q6H PRN PO PAIN Last administered on 10/11/17 09:16; Admin Dose 1 TAB; Start 10/03/17 at 03:00 Atorvastatin Calcium 20 mg 20 mg DAILY@21 PO Last administered on 10/12/17 21 :36; Admin Dose 20 MG; Start 10/04/17 at 21:00 Ceftriaxone Sodium (Rocephin) 50 ml @ 100 mls/hr Q24H IVPB Last administered on 10/12/17 18:15; Admin Dose 100 MLS/HR; Start 10/07/17 at 18:30 Diagnostic Test (Pha) (Accu-Chek) 1 ea 02 XX ; Start 10/09/17 at 02:00 Miscellaneous Information 1 ea NOTE XX ; Start 10/08/17 at 13:30 Glucose (Glutose) 15 gm Q15M PRN PO DECREASED GLUCOSE; Start 10/08/17 at 13:30 Glucose (Glutose) 22.5 gm Q15M PRN PO DECREASED GLUCOSE; Start 10/08/17 at 13: 30 Dextrose (D50w Syringe) 25 ml Q15M PRN IV DECREASED GLUCOSE; Start 10/08/17 at 13:30 Dextrose (D50w Syringe) 50 ml Q15M PRN IV DECREASED GLUCOSE; Start 10/08/17 at 13:30 Glucagon (Glucagen) 1 mg Q15M PRN IM DECREASED GLUCOSE; Start 10/08/17 at 13:30 Glucose (Glutose) 15 gm Q15M PRN BUCCAL DECREASED GLUCOSE; Start 10/08/17 at 13 :30 Bisacodyl (Dulcolax) 10 mg BID PRN PO CONSTIPATION Last administered on 21:36; Admin Dose 10 MG; Start 10/09/17 at 14:30 Polyethylene Glycol (Miralax) 17 gm DAILY PO Last administered on 10/13/17 08 :32; Admin Dose 17 GM; Start 10/09/17 at 14:30 Insulin Glargine (Lantus) 30 unit QHS SC Last administered on 10/12/17 21:35 ; Admin Dose 30 UNIT; Start 10/11/17 at 21:00 Linagliptin (Tradjenta) 5 mg DAILY PO Last administered on 10/13/17 08:33; Admin Dose 5 MG; Start 10/11/17 at 12:00 REFUGIO ARCOS MD Oct 13, 2017 14:42
[2017-10-13] MEDS ORDERED: ENOXAPARIN 30 MG/0.3 ML SYG SC SCH (16:30)
[2017-10-13] MEDS: CEFTRIAXONE 1 GM/50 ML (PMX) 50 ML IVPB SCH (17:19)
== END 2017-10-13 17:50 | DRG 184 ==
LOC: E/R 12:37 → MS4 22:30
PROVIDERS: ADMIT Internal Medicine Nephrology; ATTEND Internal Medicine Nephrology
DX: S22.41XA Multiple fractures of ribs, right side, initial encounter for closed fracture (principal); I13.0 Hypertensive heart and chronic kidney disease with heart failure and stage 1 through stage 4 chronic kidney disease, or unspecified chronic kidney disease; E11.22 Type 2 diabetes mellitus with diabetic chronic kidney disease; I50.32 Chronic diastolic (congestive) heart failure; Z68.41 Body mass index [BMI] 40.0-44.9, adult; E11.65 Type 2 diabetes mellitus with hyperglycemia; D64.9 Anemia, unspecified; N18.9 Chronic kidney disease, unspecified; I25.10 Atherosclerotic heart disease of native coronary artery without angina pectoris; E78.5 Hyperlipidemia, unspecified; E66.01 Morbid (severe) obesity due to excess calories; M47.894 Other spondylosis, thoracic region; R91.8 Other nonspecific abnormal finding of lung field; I25.2 Old myocardial infarction; E11.40 Type 2 diabetes mellitus with diabetic neuropathy, unspecified; R00.1 Bradycardia, unspecified; R94.31 Abnormal electrocardiogram [ECG] [EKG]; I35.0 Nonrheumatic aortic (valve) stenosis; Z96.659 Presence of unspecified artificial knee joint; Z79.82 Long term (current) use of aspirin; Z79.4 Long term (current) use of insulin; W01.0XXA Fall on same level from slipping, tripping and stumbling without subsequent striking against object, initial encounter
CPT/HCPCS: 36415; 71010; 72040; 72072; 72100; 73200; 80048; 80053; 80061; 82550; 82553; 82962; 83690; 83880; 84443; 84484; 85025; 93005; 93306; 94640; 94664; 96374; 96375; 96376; 97162; J0696; J1170; J1650; J1815; J2270; J2405; J7040